=== PATIENT | female | born 1970 | race Caucasian/White ===

== ENCOUNTER 2024-05-23 10:20 | Outpatient (OUT) | payer BC, SELFPAY ==
[2024-05-23 12:03] LABS: Free T4 0.97 ng/dL (0.76-1.46)
[2024-05-23 12:09] LABS: Thyroid Stimulating Hormone 4.869 uIU/mL (0.358-3.740)
== END 2024-05-23 10:21 | disposition home or self-care (01) ==
LOC: LAB 10:24
PROVIDERS: PCP Family Medicine; Visit Provider Family Medicine
DX: E03.9 Hypothyroidism, unspecified (principal)
CPT/HCPCS: 36415; 84439; 84443

== ENCOUNTER 2025-06-11 10:34 | Outpatient (OUT) | payer BC, SELFPAY ==
[2025-06-11 11:49] LABS: Thyroid Stimulating Hormone 12.512 uIU/mL (0.358-3.740)
== END 2025-06-11 10:35 | disposition home or self-care (01) ==
LOC: LAB 10:36
PROVIDERS: PCP Family Medicine; Visit Provider Family Medicine
DX: E03.9 Hypothyroidism, unspecified (principal)
CPT/HCPCS: 36415; 84439; 84443

== ENCOUNTER 2025-09-26 14:02 | Outpatient (OUT) | payer BC, SELFPAY ==
--- OUTSIDE RECORDS SUMMARY | 2020-12-24 13:00 | XMS_ITS | Continuity of Care Document ---
Author Organization [facility] Address [address] [place] [address] Phone Care Team Providers Care Fox Raiser Name Role Phone Cheng Hadley Unavailable Unavailable [...] Diagnoses Date Provider Providers Copied on Encounter [facility], [address], [place], [id number], tel:[phone] COVID ECHD No Information Nadiapoly Cheng. [address], [place], [id number], [place]. tel:[phone] [facility], [address], [place], [id number], [place] tel:[phone] COVID ECHD No Information Visci DO Anand. [address], [place], [id number], [place]. tel:[phone] [facility], [address] [place] [address], [id number], tel:[phone] COVID E[facility]D Encounter for screening for other viral diseases Herbert WILKS Cheng. [address], [place], [id number], [place]. tel:[phone] Family History Family Member Type Diagnosis Age At Onset No Information Immunizations Vaccine Date Status Comments Moderna COVID administered Source: New Im munization Record Moderna COVID administered Source: New Im munization Record Payers Payer name Insurance type Covered democrat ID Authorsonam crump(s) [place] [id number] [place] [id number] [place] [id number] Social History Type Description Quantity Date Captured [...]
--- OUTSIDE RECORDS SUMMARY | 2025-09-26 14:15 | XMS_ITS | CCD ---
Author Organization [facility] Care Team Providers Care Food Service Sales Representatives Name Role Phone DR BETSY GARCIA Consulting Unavailable KATIE, DR KRISTINA Squires Attending Unavailable KATIE, DR KRISTINA Squires Primary Care Unavailable KATIE, DR KRISTINA Squires Admitting Unavailable KATIE, DR KRISTINA Squires Consulting Unavailable Unavailable Primary Care Provider UnavailKristina Alvarenga MD Primary Care Provider Kristina Lopez MD Attending Provider LI WARREN Attending Unavailable LI WARREN Attending Unavailable Unallocated , [place] Provider Primary Care Provi yessy Medications Current Medications MedicationDrug Class(es)DatesSig (Normalized)Sig (Original)Thyroid (Pork) (Cresco Thyroid) 90 mg tablet (5 sources)Start: 93-18-3497khrd 1 tablet by mouth once dailyThyroid (Pork) (Cresco Thyroid) 90 mg tablet Active 90 MG PO Daily April 07, 2025 1:20pmStart: 03-19-2024 End: 93-28-9812ksrl 1 tablet by mouth once dailyThyroid (Pork) (Cresco Thyroid) 90 mg tablet Discontinued 180 MG PO Daily March 19, 2024 12:00am March 19, 2024 11:19amthyroid (half-way) 120 mg oral tablet (20 sources)Start: 09-72-6273wpon 1 tablet by mouth once dailythyroid (Cresco) 120 MG tablet Take 120 mg by mouth Daily 07/04/2025 ActiveStart: 04-07-2025 End: 91-78-2915efpv 1 tablet by mouth once dailyThyroid (Pork) (Cresco Thyroid) 90 mg tablet Discontinued 90 MG PO Daily April 07, 2025 1:20pm July 03, 2025 1:00pmStart: 03-19-2024 End: 62-29-5389tahq 1 tablet by mouth once dailyThyroid (Pork) (Cresco Thyroid) 90 mg tablet Discontinued 0 .ROUTE .COMPLEX 90 February 20, 2025 8:13am April 07, 2025 1:21pm TAKE 1 TABLET BY MOUTH EVERY DAYStart: 03-19-2024 End: 50-58-5903bsqt 1 tablet by mouth once dailyThyroid (Pork) (Cresco Thyroid) 90 mg tablet Discontinued 180 MG PO Daily March 19, 2024 12:00am March 19, 2024 11:19am Completed/Discontinued Medications MedicationDrug Class(es)DatesSig (Normalized)Sig (Original)[id number] 200 actuat albuterol 0.09 mg/actuat metered dose inhaler (3 sources)beta2-Adrenergic AgonistStart: 04-07-2025 End: 46-78-8867Mqpapfmjq Sulfate 90 mcg/actuation HFA aerosol inhaler Discontinued 2 INH INHALATION EVERY 4-6 HOURS as needed for shortness of breath or wheezing 6.7 April 07, 2025 12:00am September 05, 2025 1:37pmStart: 08-09-2024 End: 26-83-7659ufhg 1 puff(s) by inhalation every four to six hours as needed for wheezingAlbuterol Sulfate 90 mcg/actuation HFA aerosol inhaler Discontinued 2 PUFF INHALATION EVERY 4-6 HOURS as needed for shortness of breath or wheezing 6.7 August 09, 2024 12:00am February 14, 2025 1:19pmStart: 98-08-8518zesr 1 puff(s) by inhalation every four to six hoursAlbuterol Sulfate Active 2 PUFF INHALATION EVERY 4-6 HOURS 6.7 August 09, 2024 12:00amAlbuterol Sulfate 90 mcg/actuation HFA aerosol inhaler (2 sources)Start: 08-09-2024 End: 31-25-9351bzyp 1 puff(s) by inhalation every four to six hours as needed for wheezingAlbuterol Sulfate 90 mcg/actuation HFA aerosol inhaler Discontinued 2 PUFF INHALATION EVERY 4-6 HOURS as needed for shortness of breath or wheezing 6.7 August 09, 2024 12:00February 14, 2025 1:19pmazithromycin 250 mg oral tablet (5 sources)Macrolide AntimicrobialStart: 04-07-2025 End: 57-16-1773Uozsipeeabzp 250 mg tablet Discontinued 0 PO .COMPLEX April 07, 2025 12:00am September 05, 2025 1:37pm For 250 mg dose pack: take 500 mg today (day 1), then 250 mg for 4 days (days 2-5) POStart: 08-09-2024 End: 69-88-1502Rrfgmgyaikcl 250 mg tablet Discontinued 0 PO daily 05 02August 09, 2024 12:00am February 14, 2025 1:18pm Take 2 on day 1 and then take 1 for the next 4 days (days 2-5)Start: 42-45-6219Fothhrgxjvel Active 0 PO daily 05 02August 09, 2024 12:00am Take 2 on day 1 and then take 1 forthe next 4 days (days 2-5)benzonatate 100 mg oral capsule (5 sources)Non-narcotic AntitussiveStart: 08-03-2024 End: 05-88-8155itiu 1 capsule by mouth three times dailyBenzonatate 100 mg capsule Discontinued 100 MG PO Three times daily 17 06August 03, 2024 12:00am February 14, 2025 1:18pmmethylPREDNISolone 4 mg oral tablet (5 sources)CorticosteroidStart: 04-07-2025 End: 61-27-9537udfa 1 tablet by mouth onceMethylprednisolone (Medrol (Hill)) 4 mg tablets,dose pack Discontinued 0 PO per package directions April 07, 2025 12:00am September 05, 2025 1:37pm PO PER PKG DIRStart: 08-09-2024 End: 78-95-5080bufg 1 tablet by mouth onceMethylprednisolone (Medrol (Hill)) 4 mg tablets,dose pack Discontinued 0 PO per package directions August 09, 2024 12:00am February 14, 2025 1:18pm PO PER PKG DIR Problems Problem ClassificationProblemDateDocumented DateEpisodic/ChronicChronic obstructive pulmonary disease and bronchiectasis (3 sources)Bronchitis; Translations: [Bronchitis, not specified as acute or chronic]42-92-8463HkcrlgxwJfrmmrnurvmzb symptoms and ill-defined conditions (1 source)Frequency of micturition; Translations: [FREQUENCY OF MICTURITION] Onset: 98-78-7677WmwypkozZrucksmbjz disorders (2 sources)Perimenopausal state; Translations: [Menopausal and female climacteric states]22-11-8298LgaalknWndvjwxxbpmav gastroenteritis (3 sources)Gastroenteritis; Translations: [Noninfective gastroenteritis and colitis, unspecified]29-89-8562OwuxswxmShhnkguskkc chest pain (2 sources)Rib pain; Translations: [Other chest pain]96-78-7174Ecpmaiav Nutritional deficiencies (4 sources)Vitamin D deficiency, unspecified; Translations: [VITAMIN D DEFICIENCY UNSPECIFIED]Onset: 03-13-2397XrdisydLduli connective tissue disease (1 source)Pain in right foot; Translations: [PAIN IN RIGHT FOOT]Onset: 86-78-7714GsenylagXzcft female genital disorders (4 sources)Enlarged uterus; Translations: [Hypertrophy of uterus]08-13-2025 EpisodicOther female genital disorders (2 sources)Female genital organ symptoms; Translations: [Pelvic pressure in female]95-20-3317MpenpavtWhqry lower respiratory disease (1 source)Respiratory tract infection; Translations: [Other specified respiratory disorders]83-45-6590QjreuxrbRjtrk nervous system disorders (2 sources)Peripheral nerve disease ; Translations: [Polyneuropathy, unspecified]82-89-0561OsstkllZdpjd nervous system disorders (1 source)Paresthesia of skin; Translations: [PARESTHESIA OF SKIN]Onset: 88-81-1408JnbpfpvjUwelp screening for suspected conditions (not mental disorders or infectious disease) (9 sources)Patient encounter status; Translations: [Encounter for screening mammogram for malignant neoplasm of breast]49-96-8530TsoxyiplLhwgs upper respiratory infections (1 source)Acute upper respiratory infection, unspecified; Translations: [Acute upper respiratory infections of unspecified site]69-54-1641JrzncpqgWceavnsz of female genital organs (4 sources)Uterine prolapse; Translations: [Uterovaginal prolapse, unspecified] 98-72-9486UxwjanzMhyrcyx disorders (8 sources)Hypothyroidism; Translations: [Hypothyroidism, unspecified]04-24-2024 ChronicUnclassified (2 sources)Patient encounter status; Translations: [Z12.11 - Encounter for screening for malignant neoplasm ofcolon] Results Test NameValueInterpretationReference RangeFacilityLaboratory - Chemistry and Chemistry - challengeOrdered By: Kristina Lopez on 78-31-9411Wvdq T4 [Mass/Vol] 0.92 ng/dL0.76-1.46[facility] Qn12.512 m[IU]/LHigh 0.358-3.740[facility] CenterLaboratory - Microbiology and Antimicrobial susceptibilityon 18-76-3860HBBL-CoV-2 (COVID-19) RNA RADHA+probe Ql (Unsp spec)NegativeUniversity Hospitals Tripoint Medical CenterNo Panel Informationon 35-99-1405USL Influenza A (PCR)NegativeUniversity Hospitals Tripoint Medical CenterPO Influenza B (PCR)NegativeUniversity Hospitals Tripoint Medical CenterLaboratory - Chemistry and Chemistry - challengeon 41-83-7799Trhg T4 [Mass/Vol]0.97 ng/dL0.76-1.46 [facility] Qn4.869 m[IU]/LHigh0.358-3.740[facility] CenterVIT D 1 25 DIHYDROXYon 26-78-3523Nuinhuooiu(1,25 di-[place] Vit D)47.5 pg/vKZpkndu88.8-81.5The [facility] HospitalComment on above:Performed By: #### [id number] #### [facility] [address], [place] [address] Dr. Adriana HaneyXR LSPINE 2_3 VIEWSon 31-89-5325KT LSPINE 2_3 VIEWSEXAMINATION: XR LSPINE 2_3 VIEWS HISTORY: Paresthesia ; chronic low back pain, chronic right foot pain COMPARISON: CT abdomen pelvis 09/30/2021 FINDINGS: BONES: Slight left convex curvature lumbar spine and mild degenerative facet arthropathy L4-5, L5-S1. Normal height and alignment of the vertebral bodies; no fracture or bone lesion. DISC SPACES: Mild narrowing L1-2. Moderate narrowing L5-S1. PARASPINOUS: Negative. No paraspinous abnormality is seen. OTHER: Negative. IMPRESSION: 1. L5-S1 moderate-marked degenerative disc disease which appear stable to slightly progressed compared to prior study. 2. Multilevel mild degenerative changes. Electronically authenticated by: BETSY GARCIA Date: 2022-10-07 08:14NormalThPremier Health [facility] AUTO DIFFon 63-83-4333QMMH #0.0 103/ulNormal0.0-0.1The [place] HospitalComment on above:Performed By: #### CBC #### [facility] [address] [place] [address] Dr. Adriana HaneyBasophils/100 WBC (Bld)0.5 %Normal0.2-2.0The [facility] Comment on above:Performed By: #### CBC #### [facility] [address] [place] [address] Dr. Adriana Olivia #0.1 103/ulNormal0.0-0.7The [place] HospitalComment on above: Performed By: #### CBC #### [facility] [address] [place] [address] Dr. Adriana Pittosinophils/100 WBC (Bld)1.2 %Normal0.9-7.0The [facility] Comment on above:Performed By: #### CBC #### [facility] [address] [place] [address] Dr. Adriana Pittrythrocyte distribution width (RBC) [Ratio]11.9 %Dvcckp15.0-15.0 The [place] HospitalComment on above:Performed By: #### CBC #### [facility] [address] [place] [address] Dr. Adriana HaneyHematocrit (Bld) [Volume fraction]39.3 %Aspelm57.0-48.0The [place] HospitalComment on above:Performed By: #### CBC #### [facility] [address] [place] [address] Dr. Adriana HaneyHemoglobin (Bld) [Mass/Vol]13.5 g/lUQgzhsa59.0-16.0The [place] HospitalComment on above:Performed By: #### CBC #### [facility] [address] [place] [address] Dr. Adriana Alston #0.03 10e3/ulNormal0.00-0.03The [place] HospitalComment on above:Performed By: #### CBC #### [facility] [address] [place] [address] Dr. Adriana Alston %0.4 %Normal0.0-0.5The [place] HospitalComment on above: Performed By: #### CBC #### [facility] [address] [place] [address] Dr. Adriana Arnett #2.6 103/ulNormal1.2-3.8The [place] HospitalComment on above:Performed By: #### CBC #### [facility] [address] [place] [address] Dr. Adriana Springerhocytes/100 WBC (Bld)33.0 %Lnwiuq10.5-60.0The [place] HospitalComment on above:Performed By: #### CBC #### [facility] [address] [place] [address] Dr. Adriana HealyUAL DIFF REQNONormalThe [place] HospitalComment on above: Performed By: #### CBC #### [facility] [address] [place] [address] Dr. Adriana Valdivia (RBC) [Entitic mass]31.1 doYlwnxi88.7-34.0The [place] HospitalComment on above:Performed By: #### CBC #### [facility] [address] [place] [address] Dr. Adriana Moffett (RBC) [Mass/Vol]34.4 g/fZNwfvqd03.9-35.2The [place] HospitalComment on above:Performed By: #### CBC #### [facility] [address] [place] [address] Dr. Adriana Moffett (RBC) [Entitic vol]90.6 eLRzxnfa73.0-99.0The [place] HospitalComment on above:Performed By: #### CBC #### [facility] [address] [place] [address] Dr. Adriana Parker #0.5 103/ulNormal0.3-0.8The [place] HospitalComment on above:Performed By: #### CBC #### [facility] [address] [place] [address] Dr. Adriana Gillocytes/100 WBC (Bld)6.2 %Normal1.7-12.0The [facility] Comment on above:Performed By: #### CBC #### [facility] [address] [place] [address] Dr. Adriana Barahona #4.6 103/ulNormal1.4-6.5The [place] HospitalComment on above:Performed By: #### CBC #### [facility] [address] [place] [address] Dr. Adriana Giordanoutrophils/100 WBC (Bld)58.7 %Fpecoh62.0-75.0The [place] HospitalComment on above:Performed By: #### CBC #### [facility] [address] [place] [address] Dr. Adriana Velasco mean volume (Bld) [Entitic vol]9.4 fLCritically low 9.5-13.5The [place] HospitalComment on above:Performed By: #### CBC #### [facility] [address] [place] [address] Dr. Adriana SamuelsT309 103/meIzjzol827-436Hbn [facility] HospitalComment on above: Performed By: #### CBC #### [facility] [address] [place] [address] Dr. Adriana ScottC4.34 106/ulNormal4.20-5.40The [place] HospitalComment on above:Performed By: #### CBC #### [facility] [address] [place] [address] Dr. Adriana HaneyWBC7.8 103/ulNormal4.0-11.0The [place] HospitalComment on above: Performed By: #### CBC #### [facility] [address] [place] [address] Dr. Adriana Villalpando T4on 28-26-1514Qiwf T4 [Mass/Vol]0.83 ng/dLNormal0.76-1.46 The [place] HospitalComment on above:Performed By: #### FT4 #### [facility] [address] [place] [address] [address] Adriana HaneyPROF CHEM 8 (BAS METB)on 28-56-0050Itwiz gap [Moles/Vol]10.5 mmol/LNormalThe [place] HospitalComment on above:Performed By: #### TSH, BMP #### [facility] [address] [address] [address] Adriana HaneyCalcium [Mass/Vol]8.9 mg/dLNormal8.5-10.1The [facility] Comment on above:Performed By: #### TSH, BMP #### [facility] [address] [address] [address] Adriana HaneyChloride [Moles/Vol]104 mmol/PSgoerv92-024GelRegency Hospital Company Comment on above:Performed By: #### TSH, BMP #### [facility] [address] [address] [address] Adriana HaneyCO2 [Moles/Vol]25.7 mmol/KVewsua59.0-32.0[facility] Comment on above:Performed By: #### TSH, BMP #### [facility] [address] [address] [address] Adriana HaneyCreatinine [Mass/Vol]0.85 mg/dLNormal0.55-1.02[facility] Hospital CompanyComment on above:Performed By: #### TSH, BMP #### [facility] [address] [address] [address] Adriana PittGFR-AF TANZANIAN>60Normal>=60The [place] HospitalComment on above:Performed By: #### TSH, BMP #### [facility] [address] [address] [address] Adriana PittGFR-NON AF TANZANIAN>60Normal>=60The [place] HospitalComment on above:Performed By: #### TSH, BMP #### [facility] [address] [address] [address] Adriana HaneyGlucose [Mass/Vol]103 mg/gTUngkmr35-774GczRegency Hospital Company Comment on above:Performed By: #### TSH, BMP #### [facility] [address] [place] [address] Dr. Adriana HaneyPotassium [Moles/Vol]4.2 mmol/LNormal3.5-5.1[facility] Comment on above:Performed By: #### TSH, BMP #### [facility] [address] [place] [address] Dr. Adriana HaneySodium [Moles/Vol]136 mmol/EYgrxda669-598NocRegency Hospital Company Comment on above:Performed By: #### TSH, BMP #### [facility] [address] [place] [address] Dr. Adriana HaneyUrea nitrogen [Mass/Vol]14.0 mg/dLNormal7.0-18.0[facility] Hospital CompanyComment on above:Performed By: #### TSH, BMP #### [facility] [address] [place] [address] Dr. Adriana Kim nitrogen/Creatinine [Mass ratio]16.5 mg/mgNormalThe [place] HospitalComment on above:Performed By: #### TSH, BMP #### [facility] [address] [place] [address] Dr. Adriana Park 11-21-4635ZQY0.716 uIU/mLNormal0.358-3.740Reg[facility] Hospital CompanyComment on above:Performed By: #### TSH, BMP #### [facility] [address] [place] [address] Dr. Adriana HaneyLab - Toxicology Resultson 83-11-7907Wta - Toxicology Results [id number]#1.00OTSt. [facility] Lab Corpon [id number]-CoV-2 (COVID-19) RNA RADHA+probe Ql (Unsp spec) Not detectedNormalNot DetectedUniversity Hospitals Tripoint Medical CenterComment on above: Order Comment: CALL ONLY IF POS TO [phone] Healthcare Worker?: YResmoncho Comment: This nucleic acid amplification test was developed and its performance characteristics determined by [employer]. Nucleic acid amplification tests include RT- PCR and TMA. This test has not been FDA cleared or approved. This test has been authorized by FDA under an Emergency Use Authorization (EUA). This test is only authorized for the duration of time the declaration that circumstances exist justifying the authorization of the emergency use of in vitro diagnostic tests for detection of SARS-CoV-2 virus and/or diagnosis of COVID-19 infection under section 564(b)(1) of the Act, 21 U.S.C. 360bbb-3(b) (1), unless the authorization is terminated or revoked sooner. When diagnostic testing is negative, the possibility of a false negative result should be considered in the context of a patient's recent exposures and the presence of clinical signs and symptoms consistent with COVID-19. An individual without symptoms of COVID-19 and who is not shedding SARS-CoV-2 virus would expect to have a negative (not detected) result in this assay. PERFORMED BY: [address] [place] [address] PATHOLOGIST [employer]EN [employer]UM[employer] NOEL VILLAREAL M.D.Performed By: #### CORONAVIRUS #### [facility] ,COVID-19 Lab Corpon 85-89-6515UZMO-CoV-2 (COVID-19) RNA RADHA+probe Ql (Unsp spec)Not detectedNormalNot DetectedUniversity Hospitals Tripoint Medical CenterComment on above:Order Comment: CALL ONLY IF POS TO [phone] Healthcare Worker?: YResmoncho Comment: This nucleic acid amplification test was developed and its performance characteristics determined by [employer]. Nucleic acid amplification tests include RT- PCR and TMA. This test has not been FDA cleared or approved. This test has been authorized by FDA under an Emergency Use Authorization (EUA). This test is only authorized for the duration of time the declaration that circumstances exist justifying the authorization of the emergency use of in vitro diagnostic tests for detection of SARS-CoV-2 virus and/or diagnosis of COVID-19 infection under section 564(b)(1) of the Act, 21 U.S.C. 360bbb-3(b) (1), unless the authorization is terminated or revoked sooner. When diagnostic testing is negative, the possibility of a false negative result should be considered in the context of a patient's recent exposures and the presence of clinical signs and symptoms consistent with COVID-19. An individual without symptoms of COVID-19 and who is not shedding SARS-CoV-2 virus would expect to have a negative (not detected) result in this assay. PERFORMED BY: [address] [place] [address] PATHOLOGIST [employer] NOEL VILLAREAL M.D.Performed By: #### CORONAVIRUS #### [facility] ,COVID-19 Lab Corpon [id number]-CoV-2 (COVID-19) RNA RADHA+probe Ql (Unsp spec)Not detectedNormalNot DetectedUniversity Hospitals Tripoint Medical CenterComment on above:Order Comment: CALL ONLY IF POS TO [phone] Healthcare Worker?: YResult Comment: This nucleic acid amplification test was developed and its performance characteristics determined by [employer]. Nucleic acid amplification tests include RT- PCR and TMA. This test has not been FDA cleared or approved. This test has been authorized by FDA under an Emergency Use Authorization (EUA). This test is only authorized for the duration of time the declaration that circumstances exist justifying the authorization of the emergency use of in vitro diagnostic tests for detection of SARS-CoV-2 virus and/or diagnosis of COVID-19 infection under section 564(b)(1) of the Act, 21 U.S.C. 360bbb-3(b) (1), unless the authorization is terminated or revoked sooner. When diagnostic testing is negative, the possibility of a false negative result should be considered in the context of a patient's recent exposures and the presence of clinical signs and symptoms consistent with COVID-19. An individual without symptoms of COVID-19 and who is not shedding SARS-CoV-2 virus would expect to have a negative (not detected) result in this assay. PERFORMED BY: [place] [address] [place] [address] PATHOLOGIST GRE[employer]UMBER NOEL VILLAREAL M.D.Performed By: #### CORONAVIRUS #### [facility] ,COVID-19 Lab Corpon [id number]-CoV-2 (COVID-19) RNA RADHA+probe Ql (Unsp spec)Not detectedNormalNot DetectedUniversity Hospitals Tripoint Medical CenterComment on above:Order Comment: CALL ONLY IF POS TO [phone] Healthcare Worker?: YResult Comment: This nucleic acid amplification test was developed and its performance characteristics determined by [employer]. Nucleic acid amplification tests include RT- PCR and TMA. This test has not been FDA cleared or approved. This test has been authorized by FDA under an Emergency Use Authorization (EUA). This test is only authorized for the duration of time the declaration that circumstances exist justifying the authorization of the emergency use of in vitro diagnostic tests for detection of SARS-CoV-2 virus and/or diagnosis of COVID-19 infection under section 564(b)(1) of the Act, 21 U.S.C. 360bbb-3(b) (1), unless the authorization is terminated or revoked sooner. When diagnostic testing is negative, the possibility of a false negative result should be considered in the context of a patient's recent exposures and the presence of clinical signs and symptoms consistent with COVID-19. An individual without symptoms of COVID-19 and who is not shedding SARS-CoV-2 virus would expect to have a negative (not detected) result in this assay. PERFORMED BY: [facility] [address] [place] [address] PATHOLOGIST GRE[employer]UMBER NOEL VILLAREAL M.D.Performed By: #### CORONAVIRUS #### [facility] ,COVID-19 Lab Corpon [id number]-CoV-2 (COVID-19) RNA RADHA+probe Ql (Unsp spec)Not detectedNormalNot DetectedUniversity Hospitals Tripoint Medical CenterComment on above:Order Comment: CALL ONLY IF POS TO [phone] Healthcare Worker?: YResult Comment: This nucleic acid amplification test was developed and its performance characteristics determined by [employer]. Nucleic acid amplification tests include RT- PCR and TMA. This test has not been FDA cleared or approved. This test has been authorized by FDA under an Emergency Use Authorization (EUA). This test is only authorized for the duration of time the declaration that circumstances exist justifying the authorization of the emergency use of in vitro diagnostic tests for detection of SARS-CoV-2 virus and/or diagnosis of COVID-19 infection under section 564(b)(1) of the Act, 21 U.S.C. 360bbb-3(b) (1), unless the authorization is terminated or revoked sooner. When diagnostic testing is negative, the possibility of a false negative result should be considered in the context of a patient's recent exposures and the presence of clinical signs and symptoms consistent with COVID-19. An individual without symptoms of COVID-19 and who is not shedding SARS-CoV-2 virus would expect to have a negative (not detected) result in this assay. PERFORMED BY: [address] [place] [address] PATHOLOGIST GREEN PLUMBER NOEL VILLAREAL M.D.Performed By: #### CORONAVIRUS #### [facility] ,COVID[facility] [id number]-CoV-2 (COVID-19) RNA RADHA+probe Ql (Unsp spec)Not detectedNormalNot DetectedUniversity Hospitals Tripoint Medical CenterComment on above:Order Comment: CALL ONLY IF POS TO [phone] Healthcare Worker?: Yusuf Comment: This nucleic acid amplification test was developed and its performance characteristics determined by [employer]. Nucleic acid amplification tests include RT- PCR and TMA. This test has not been FDA cleared or approved. This test has been authorized by FDA under an Emergency Use Authorization (EUA). This test is only authorized for the duration of time the declaration that circumstances exist justifying the authorization of the emergency use of in vitro diagnostic tests for detection of SARS-CoV-2 virus and/or diagnosis of COVID-19 infection under section 564(b)(1) of the Act, 21 U.S.C. 360bbb-3(b) (1), unless the authorization is terminated or revoked sooner. When diagnostic testing is negative, the possibility of a false negative result should be considered in the context of a patient's recent exposures and the presence of clinical signs and symptoms consistent with COVID-19. An individual without symptoms of COVID-19 and who is not shedding SARS-CoV-2 virus would expect to have a negative (not detected) result in this assay. PERFORMED BY: [facility] [address] [place] [address] PATHOLOGIST GREEN PLUMBER NOEL VILLAREAL M.D.Performed By: #### CORONAVIRUS #### [facility] ,COVID-19 Lab [facility]on [id number] (COVID-19) RNA RADHA+probe Ql (Unsp spec)Not detectedNormalNot DetectedUniversity Hospitals Tripoint Medical CenterComment on above:Order Comment: CALL ONLY IF POS TO [phone] Healthcare Worker?: ISISesult Comment: This nucleic acid amplification test was developed and its performance characteristics determined by [employer]. Nucleic acid amplification tests include RT- PCR and TMA. This test has not been FDA cleared or approved. This test has been authorized by FDA under an Emergency Use Authorization (EUA). This test is only authorized for the duration of time the declaration that circumstances exist justifying the authorization of the emergency use of in vitro diagnostic tests for detection of SARS-CoV-2 virus and/or diagnosis of COVID-19 infection under section 564(b)(1) of the Act, 21 U.S.C. 360bbb-3(b) (1), unless the authorization is terminated or revoked sooner. When diagnostic testing is negative, the possibility of a false negative result should be considered in the context of a patient's recent exposures and the presence of clinical signs and symptoms consistent with COVID-19. An individual without symptoms of COVID-19 and who is not shedding SARS-CoV-2 virus would expect to have a negative (not detected) result in this assay. PERFORMED BY: [facility] [address] [place] [address] PATHOLOGIST GREEN PLUMBER NOEL VILLAREAL M.D.Performed By: #### CORONAVIRUS #### [facility] ,COVID-19 Lab Corpon [id number] (COVID-19) RNA RADHA+probe Ql (Unsp spec)Not detectedNormalNot DetectedUniversity Hospitals Tripoint Medical CenterComment on above:Order Comment: CALL ONLY IF POS TO [phone] Healthcare Worker?: YResult Comment: This nucleic acid amplification test was developed and its performance characteristics determined by [employer]. Nucleic acid amplification tests include RT- PCR and TMA. This test has not been FDA cleared or approved. This test has been authorized by FDA under an Emergency Use Authorization (EUA). This test is only authorized for the duration of time the declaration that circumstances exist justifying the authorization of the emergency use of in vitro diagnostic tests for detection of SARS-CoV-2 virus and/or diagnosis of COVID-19 infection under section 564(b)(1) of the Act, 21 U.S.C. 360bbb-3(b) (1), unless the authorization is terminated or revoked sooner. When diagnostic testing is negative, the possibility of a false negative result should be considered in the context of a patient's recent exposures and the presence of clinical signs and symptoms consistent with COVID-19. An individual without symptoms of COVID-19 and who is not shedding SARS-CoV-2 virus would expect to have a negative (not detected) result in this assay. PERFORMED BY: [facility] [address] [place] [address] PATHOLOGIST GREEN PLUMBER NOEL VILLAREAL M.D.Performed By: #### CORONAVIRUS #### [facility] ,COVID-19 Lab [facility]on [id number]-CoV-2 (COVID-19) RNA RADHA+probe Ql (Unsp spec)Not detectedNormalNot DetectedUniversity Hospitals Tripoint Medical CenterComment on above:Order Comment: CALL ONLY IF POS TO [phone] Healthcare Worker?: YResult Comment: This nucleic acid amplification test was developed and its performance characteristics determined by [employer]. Nucleic acid amplification tests include RT- PCR and TMA. This test has not been FDA cleared or approved. This test has been authorized by FDA under an Emergency Use Authorization (EUA). This test is only authorized for the duration of time the declaration that circumstances exist justifying the authorization of the emergency use of in vitro diagnostic tests for detection of SARS-CoV-2 virus and/or diagnosis of COVID-19 infection under section 564(b)(1) of the Act, 21 U.S.C. 360bbb-3(b) (1), unless the authorization is terminated or revoked sooner. When diagnostic testing is negative, the possibility of a false negative result should be considered in the context of a patient's recent exposures and the presence of clinical signs and symptoms consistent with COVID-19. An individual without symptoms of COVID-19 and who is not shedding SARS-CoV-2 virus would expect to have a negative (not detected) result in this assay. PERFORMED BY: [address] [place] [address] PATHOLOGIST GREEN PLUMBER NOEL VILLAREAL M.D.Performed By: #### CORONAVIRUS #### [facility] ,COVID-19 Lab [facility] [id number]-CoV-2 (COVID-19) RNA RADHA+probe Ql (Unsp spec)Not detectedNormalNot DetectedUniversity Hospitals Tripoint Medical CenterComment on above:Order Comment: CALL ONLY IF POS TO [phone] Healthcare Worker?: YResult Comment: This nucleic acid amplification test was developed and its performance characteristics determined by [employer]. Nucleic acid amplification tests include RT- PCR and TMA. This test has not been FDA cleared or approved. This test has been authorized by FDA under an Emergency Use Authorization (EUA). This test is only authorized for the duration of time the declaration that circumstances exist justifying the authorization of the emergency use of in vitro diagnostic tests for detection of SARS-CoV-2 virus and/or diagnosis of COVID-19 infection under section 564(b)(1) of the Act, 21 U.S.C. 360bbb-3(b) (1), unless the authorization is terminated or revoked sooner. When diagnostic testing is negative, the possibility of a false negative result should be considered in the context of a patient's recent exposures and the presence of clinical signs and symptoms consistent with COVID-19. An individual without symptoms of COVID-19 and who is not shedding SARS-CoV-2 virus would expect to have a negative (not detected) result in this assay. PERFORMED BY: [facility] [address] [place] [address] PATHOLOGIST GREEN PLUMBER NOEL VILLAREAL M.D.Performed By: #### CORONAVIRUS #### [facility] ,COVID-19 Lab [facility] [id number] (COVID-19) RNA RADHA+probe Ql (Unsp spec)Not detectedNormalNot DetectedUniversity Hospitals Tripoint Medical CenterComment on above:Order Comment: CALL ONLY IF POS TO [phone] Healthcare Worker?: ISISesmoncho Comment: This nucleic acid amplification test was developed and its performance characteristics determined by [employer]. Nucleic acid amplification tests include RT- PCR and TMA. This test has not been FDA cleared or approved. This test has been authorized by FDA under an Emergency Use Authorization (EUA). This test is only authorized for the duration of time the declaration that circumstances exist justifying the authorization of the emergency use of in vitro diagnostic tests for detection of SARS-CoV-2 virus and/or diagnosis of COVID-19 infection under section 564(b)(1) of the Act, 21 U.S.C. 360bbb-3(b) (1), unless the authorization is terminated or revoked sooner. When diagnostic testing is negative, the possibility of a false negative result should be considered in the context of a patient's recent exposures and the presence of clinical signs and symptoms consistent with COVID-19. An individual without symptoms of COVID-19 and who is not shedding SARS-CoV-2 virus would expect to have a negative (not detected) result in this assay. PERFORMED BY: [facility] [address] [place] [address] PATHOLOGIST GREEN PLUMBER NOEL VILLAREAL M.D.Performed By: #### CORONAVIRUS #### [facility] ,COVID-19 Lab [facility] [id number]-CoV-[id number] (COVID-19) RNA RADHA+probe Ql (Unsp spec)Not detectedNormalNot DetectedUniversity Hospitals Tripoint Medical CenterComment on above:Order Comment: CALL ONLY IF POS TO [phone] Healthcare Worker?: Yusuf Comment: This nucleic acid amplification test was developed and its performance characteristics determined by [employer]. Nucleic acid amplification tests include RT- PCR and TMA. This test has not been FDA cleared or approved. This test has been authorized by FDA under an Emergency Use Authorization (EUA). This test is only authorized for the duration of time the declaration that circumstances exist justifying the authorization of the emergency use of in vitro diagnostic tests for detection of SARS-CoV-2 virus and/or diagnosis of COVID-19 infection under section 564(b)(1) of the Act, 21 U.S.C. 360bbb-3(b) (1), unless the authorization is terminated or revoked sooner. When diagnostic testing is negative, the possibility of a false negative result should be considered in the context of a patient's recent exposures and the presence of clinical signs and symptoms consistent with COVID-19. An individual without symptoms of COVID-19 and who is not shedding SARS-CoV-2 virus would expect to have a negative (not detected) result in this assay. PERFORMED BY: [address] [address] PATHOLOGIST GREEN PLUMBER NOEL VILLAREAL M.D.Performed By: #### CORONAVIRUS #### [facility] ,COVID-19 Lab [facility]on [id number]-CoV-2 (COVID-19) RNA RADHA+probe Ql (Unsp spec)Not detectedNormalNot DetectedUniversity Hospitals Tripoint Medical CenterComment on above:Order Comment: CALL ONLY IF POS TO [phone] Healthcare Worker?: YResmoncho Comment: This nucleic acid amplification test was developed and its performance characteristics determined by [employer]. Nucleic acid amplification tests include RT- PCR and TMA. This test has not been FDA cleared or approved. This test has been authorized by FDA under an Emergency Use Authorization (EUA). This test is only authorized for the duration of time the declaration that circumstances exist justifying the authorization of the emergency use of in vitro diagnostic tests for detection of SARS-CoV-2 virus and/or diagnosis of COVID-19 infection under section 564(b)(1) of the Act, 21 U.S.C. 360bbb-3(b) (1), unless the authorization is terminated or revoked sooner. When diagnostic testing is negative, the possibility of a false negative result should be considered in the context of a patient's recent exposures and the presence of clinical signs and symptoms consistent with COVID-19. An individual without symptoms of COVID-19 and who is not shedding SARS-CoV-2 virus would expect to have a negative (not detected) result in this assay. PERFORMED BY: [facility] [address] [place] [address] PATHOLOGIST GREEN PLUMBER NOEL VILLAREAL M.D.Performed By: #### CORONAVIRUS #### [facility] ,COVID-19 Lab [facility]on [id number]-CoV-2 (COVID-19) RNA RADHA+probe Ql (Unsp spec)Not detectedNormalNot DetectedUniversity Hospitals Tripoint Medical CenterComment on above:Order Comment: CALL ONLY IF POS TO [phone] Healthcare Worker?: YResult Comment: This nucleic acid amplification test was developed and its performance characteristics determined by [employer]. Nucleic acid amplification tests include RT- PCR and TMA. This test has not been FDA cleared or approved. This test has been authorized by FDA under an Emergency Use Authorization (EUA). This test is only authorized for the duration of time the declaration that circumstances exist justifying the authorization of the emergency use of in vitro diagnostic tests for detection of SARS-CoV-2 virus and/or diagnosis of COVID-19 infection under section 564(b)(1) of the Act, 21 U.S.C. 360bbb-3(b) (1), unless the authorization is terminated or revoked sooner. When diagnostic testing is negative, the possibility of a false negative result should be considered in the context of a patient's recent exposures and the presence of clinical signs and symptoms consistent with COVID-19. An individual without symptoms of COVID-19 and who is not shedding SARS-CoV-2 virus would expect to have a negative (not detected) result in this assay. PERFORMED BY: [facility] [address] [place] [address] PATHOLOGIST GREEN PLUMBER NOEL VILLAREAL M.D.Performed By: #### CORONAVIRUS #### [facility] ,COVID-19 Lab Corpon [id number]-CoV-2 (COVID-19) RNA RADHA+probe Ql (Unsp spec)Not detectedNormalNot DetectedUniversity Hospitals Tripoint Medical CenterComment on above:Order Comment: CALL ONLY IF POS TO [phone] Healthcare Worker?: YResult Comment: This nucleic acid amplification test was developed and its performance characteristics determined by [employer]. Nucleic acid amplification tests include RT- PCR and TMA. This test has not been FDA cleared or approved. This test has been authorized by FDA under an Emergency Use Authorization (EUA). This test is only authorized for the duration of time the declaration that circumstances exist justifying the authorization of the emergency use of in vitro diagnostic tests for detection of SARS-CoV-2 virus and/or diagnosis of COVID-19 infection under section 564(b)(1) of the Act, 21 U.S.C. 360bbb-3(b) (1), unless the authorization is terminated or revoked sooner. When diagnostic testing is negative, the possibility of a false negative result should be considered in the context of a patient's recent exposures and the presence of clinical signs and symptoms consistent with COVID-19. An individual without symptoms of COVID-19 and who is not shedding SARS-CoV-2 virus would expect to have a negative (not detected) result in this assay. PERFORMED BY: [facility] [address] [place] [address] PATHOLOGIST GREEN PLUMBER NOEL VILLAREAL M.D.Performed By: #### CORONAVIRUS #### [facility] ,COVID-19 Lab Corpon [id number] (COVID-19) RNA RADHA+probe Ql (Unsp spec)Not detectedNormalNot DetectedUniversity Hospitals Tripoint Medical CenterComment on above:Order Comment: CALL ONLY IF POS TO [phone] Healthcare Worker?: YResult Comment: This nucleic acid amplification test was developed and its performance characteristics determined by [employer]. Nucleic acid amplification tests include RT- PCR and TMA. This test has not been FDA cleared or approved. This test has been authorized by FDA under an Emergency Use Authorization (EUA). This test is only authorized for the duration of time the declaration that circumstances exist justifying the authorization of the emergency use of in vitro diagnostic tests for detection of SARS-CoV-2 virus and/or diagnosis of COVID-19 infection under section 564(b)(1) of the Act, 21 U.S.C. 360bbb-3(b) (1), unless the authorization is terminated or revoked sooner. When diagnostic testing is negative, the possibility of a false negative result should be considered in the context of a patient's recent exposures and the presence of clinical signs and symptoms consistent with COVID-19. An individual without symptoms of COVID-19 and who is not shedding SARS-CoV-2 virus would expect to have a negative (not detected) result in this assay. PERFORMED BY: [address] [place] [address] PATHOLOGIST GREEN PLUMBER NOEL VILLAREAL M.D.Performed By: #### CORONAVIRUS #### [facility] ,COVID-19 Lab Corpon [id number] (COVID-19) RNA RADHA+probe Ql (Unsp spec)Not detectedNormalNot DetectedUniversity Hospitals Tripoint Medical CenterComment on above:Order Comment: CALL ONLY IF POS TO [phone] Healthcare Worker?: YResult Comment: This nucleic acid amplification test was developed and its performance characteristics determined by [employer]. Nucleic acid amplification tests include RT- PCR and TMA. This test has not been FDA cleared or approved. This test has been authorized by FDA under an Emergency Use Authorization (EUA). This test is only authorized for the duration of time the declaration that circumstances exist justifying the authorization of the emergency use of in vitro diagnostic tests for detection of SARS-CoV-2 virus and/or diagnosis of COVID-19 infection under section 564(b)(1) of the Act, 21 U.S.C. 360bbb-3(b) (1), unless the authorization is terminated or revoked sooner. When diagnostic testing is negative, the possibility of a false negative result should be considered in the context of a patient's recent exposures and the presence of clinical signs and symptoms consistent with COVID-19. An individual without symptoms of COVID-19 and who is not shedding SARS-CoV-2 virus would expect to have a negative (not detected) result in this assay. PERFORMED BY: [facility] [address] [place] [address] PATHOLOGIST GREEN PLUMBER NOEL VILLAREAL M.D.Performed By: #### CORONAVIRUS #### [facility] ,COVID-19 Lab Corpon [id number] (COVID-19) RNA RADHA+probe Ql (Unsp spec)Not detectedNormalNot DetectedUniversity Hospitals Tripoint Medical CenterComment on above:Order Comment: CALL ONLY IF POS TO [phone] Healthcare Worker?: Yusuf Comment: This nucleic acid amplification test was developed and its performance characteristics determined by [employer]. Nucleic acid amplification tests include RT- PCR and TMA. This test has not been FDA cleared or approved. This test has been authorized by FDA under an Emergency Use Authorization (EUA). This test is only authorized for the duration of time the declaration that circumstances exist justifying the authorization of the emergency use of in vitro diagnostic tests for detection of SARS-CoV-2 virus and/or diagnosis of COVID-19 infection under section 564(b)(1) of the Act, 21 U.S.C. 360bbb-3(b) (1), unless the authorization is terminated or revoked sooner. When diagnostic testing is negative, the possibility of a false negative result should be considered in the context of a patient's recent exposures and the presence of clinical signs and symptoms consistent with COVID-19. An individual without symptoms of COVID-19 and who is not shedding SARS-CoV-2 virus would expect to have a negative (not detected) result in this assay. PERFORMED BY: [facility] [address] [place] [address] PATHOLOGIST GREEN PLUMBER NOEL VILLAREAL M.D.Performed By: #### CORONAVIRUS #### [facility] ,COVID-19 Lab Corpon [id number]-CoV-2 (COVID-19) Ab [place] QlNot detectedNormal Not DetectedUniversity Hospitals Tripoint Medical CenterComment on above:Order Comment: CALL ONLY IF POS TO [phone] Healthcare Worker?: YResult Comment: This nucleic acid amplification test was developed and its performance characteristics determined by [employer]. Nucleic acid amplification tests include RT- PCR and TMA. This test has not been FDA cleared or approved. This test has been authorized by FDA under an Emergency Use Authorization (EUA). This test is only authorized for the duration of time the declaration that circumstances exist justifying the authorization of the emergency use of in vitro diagnostic tests for detection of SARS-CoV-2 virus and/or diagnosis of COVID-19 infection under section 564(b)(1) of the Act, 21 U.S.C. 360bbb-3(b) (1), unless the authorization is terminated or revoked sooner. When diagnostic testing is negative, the possibility of a false negative result should be considered in the context of a patient's recent exposures and the presence of clinical signs and symptoms consistent with COVID-19. An individual without symptoms of COVID-19 and who is not shedding SARS-CoV-2 virus would expect to have a negative (not detected) result in this assay. PERFORMED BY: [address] [place] [address] PATHOLOGIST GREEN PLUMBER NOEL VILLAREAL M.D.Performed By: #### CORONAVIRUS #### [facility] ,COVID-19 Lab Corpon [id number] (COVID-19) Ab [place] QlNot detectedNormal Not DetectedUniversity Hospitals Tripoint Medical CenterComment on above:Order Comment: CALL ONLY IF POS TO [phone] Healthcare Worker?: YResult Comment: This nucleic acid amplification test was developed and its performance characteristics determined by [employer]. Nucleic acid amplification tests include RT- PCR and TMA. This test has not been FDA cleared or approved. This test has been authorized by FDA under an Emergency Use Authorization (EUA). This test is only authorized for the duration of time the declaration that circumstances exist justifying the authorization of the emergency use of in vitro diagnostic tests for detection of SARS-CoV-2 virus and/or diagnosis of COVID-19 infection under section 564(b)(1) of the Act, 21 U.S.C. 360bbb-3(b) (1), unless the authorization is terminated or revoked sooner. When diagnostic testing is negative, the possibility of a false negative result should be considered in the context of a patient's recent exposures and the presence of clinical signs and symptoms consistent with COVID-19. An individual without symptoms of COVID-19 and who is not shedding SARS-CoV-2 virus would expect to have a negative (not detected) result in this assay. PERFORMED BY: [address] [place] [address] PATHOLOGIST GREEN PLUMBER NOEL VILLAREAL M.D.Performed By: #### CORONAVIRUS #### [facility] ,COVID-19 Lab Corpon [id number]-CoV-2 (COVID-19) Ab [place] QlNot detectedNormal Not DetectedUniversity Hospitals Tripoint Medical CenterComment on above:Order Comment: CALL ONLY IF POS TO [phone] Healthcare Worker?: ISISesult Comment: This nucleic acid amplification test was developed and its performance characteristics determined by [employer]. Nucleic acid amplification tests include RT- PCR and TMA. This test has not been FDA cleared or approved. This test has been authorized by FDA under an Emergency Use Authorization (EUA). This test is only authorized for the duration of time the declaration that circumstances exist justifying the authorization of the emergency use of in vitro diagnostic tests for detection of SARS-CoV-2 virus and/or diagnosis of COVID-19 infection under section 564(b)(1) of the Act, 21 U.S.C. 360bbb-3(b) (1), unless the authorization is terminated or revoked sooner. When diagnostic testing is negative, the possibility of a false negative result should be considered in the context of a patient's recent exposures and the presence of clinical signs and symptoms consistent with COVID-19. An individual without symptoms of COVID-19 and who is not shedding SARS-CoV-2 virus would expect to have a negative (not detected) result in this assay. PERFORMED BY: [facility] [address] [place] [address] PATHOLOGIST GREEN PLUMBER NOEL VILLAREAL M.D.Performed By: #### CORONAVIRUS #### [facility] ,COVID-19 Lab Corpon [id number]-CoV-2 (COVID-19) Ab [place] QlNot detectedNormal Not DetectedUniversity Hospitals Tripoint Medical CenterComment on above:Order Comment: CALL ONLY IF POS TO [phone] Healthcare Worker?: YResult Comment: This nucleic acid amplification test was developed and its performance characteristics determined by [employer]. Nucleic acid amplification tests include RT- PCR and TMA. This test has not been FDA cleared or approved. This test has been authorized by FDA under an Emergency Use Authorization (EUA). This test is only authorized for the duration of time the declaration that circumstances exist justifying the authorization of the emergency use of in vitro diagnostic tests for detection of SARS-CoV-2 virus and/or diagnosis of COVID-19 infection under section 564(b)(1) of the Act, 21 U.S.C. 360bbb-3(b) (1), unless the authorization is terminated or revoked sooner. When diagnostic testing is negative, the possibility of a false negative result should be considered in the context of a patient's recent exposures and the presence of clinical signs and symptoms consistent with COVID-19. An individual without symptoms of COVID-19 and who is not shedding SARS-CoV-2 virus would expect to have a negative (not detected) result in this assay. PERFORMED BY: [facility] [address] [place] [address] PATHOLOGIST GREEN PLUMBER NOEL VILLAREAL M.D.Performed By: #### CORONAVIRUS #### [facility] ,COVID-19 Lab Corpon [id number]-CoV-2 (COVID-19) Ab [place] QlNot detectedNormal Not DetectedUniversity Hospitals Tripoint Medical CenterComment on above:Order Comment: CALL ONLY IF POS TO [phone] Healthcare Worker?: YResult Comment: This nucleic acid amplification test was developed and its performance characteristics determined by [employer]. Nucleic acid amplification tests include RT- PCR and TMA. This test has not been FDA cleared or approved. This test has been authorized by FDA under an Emergency Use Authorization (EUA). This test is only authorized for the duration of time the declaration that circumstances exist justifying the authorization of the emergency use of in vitro diagnostic tests for detection of SARS-CoV-2 virus and/or diagnosis of COVID-19 infection under section 564(b)(1) of the Act, 21 U.S.C. 360bbb-3(b) (1), unless the authorization is terminated or revoked sooner. When diagnostic testing is negative, the possibility of a false negative result should be considered in the context of a patient's recent exposures and the presence of clinical signs and symptoms consistent with COVID-19. An individual without symptoms of COVID-19 and who is not shedding SARS-CoV-2 virus would expect to have a negative (not detected) result in this assay. PERFORMED BY: [address] [place] [address] PATHOLOGIST GREEN PLUMBER NOEL VILLAREAL M.D.Performed By: #### CORONAVIRUS #### [facility] ,COVID-19 Lab Corpon [id number]-CoV-2 (COVID-19) Ab [place] QlNot detectedNormal Not DetectedUniversity Hospitals Tripoint Medical CenterComment on above:Order Comment: CALL ONLY IF POS TO [phone] Healthcare Worker?: YResmoncho Comment: This nucleic acid amplification test was developed and its performance characteristics determined by [employer]. Nucleic acid amplification tests include RT- PCR and TMA. This test has not been FDA cleared or approved. This test has been authorized by FDA under an Emergency Use Authorization (EUA). This test is only authorized for the duration of time the declaration that circumstances exist justifying the authorization of the emergency use of in vitro diagnostic tests for detection of SARS-CoV-2 virus and/or diagnosis of COVID-19 infection under section 564(b)(1) of the Act, 21 U.S.C. 360bbb-3(b) (1), unless the authorization is terminated or revoked sooner. When diagnostic testing is negative, the possibility of a false negative result should be considered in the context of a patient's recent exposures and the presence of clinical signs and symptoms consistent with COVID-19. An individual without symptoms of COVID-19 and who is not shedding SARS-CoV-2 virus would expect to have a negative (not detected) result in this assay. PERFORMED BY: [facility] [address] [place] [address] PATHOLOGIST GREEN PLUMBER NOEL VILLAREAL M.D.Performed By: #### CORONAVIRUS #### [facility] ,COVID-19 Lab Corpon [id number]-CoV-2 (COVID-19) Ab [place] QlNot detectedNormal Not DetectedUniversity Hospitals Tripoint Medical CenterComment on above:Order Comment: CALL ONLY IF POS TO [phone] Healthcare Worker?: YResult Comment: This nucleic acid amplification test was developed and its performance characteristics determined by [employer]. Nucleic acid amplification tests include RT- PCR and TMA. This test has not been FDA cleared or approved. This test has been authorized by FDA under an Emergency Use Authorization (EUA). This test is only authorized for the duration of time the declaration that circumstances exist justifying the authorization of the emergency use of in vitro diagnostic tests for detection of SARS-CoV-2 virus and/or diagnosis of COVID-19 infection under section 564(b)(1) of the Act, 21 U.S.C. 360bbb-3(b) (1), unless the authorization is terminated or revoked sooner. When diagnostic testing is negative, the possibility of a false negative result should be considered in the context of a patient's recent exposures and the presence of clinical signs and symptoms consistent with COVID-19. An individual without symptoms of COVID-19 and who is not shedding SARS-CoV-2 virus would expect to have a negative (not detected) result in this assay. PERFORMED BY: [facility] [address] [place] [address] PATHOLOGIST GREEN PLUMBER NOEL VILLAREAL M.D.Performed By: #### CORONAVIRUS #### [facility] ,COVID-19 Lab Corpon [id number]-CoV-2 (COVID-19) Ab [place] QlNot detectedNormal Not DetectedUniversity Hospitals Tripoint Medical CenterComment on above:Order Comment: CALL ONLY IF POS TO [phone] Healthcare Worker?: YResult Comment: This nucleic acid amplification test was developed and its performance characteristics determined by [employer]. Nucleic acid amplification tests include RT- PCR and TMA. This test has not been FDA cleared or approved. This test has been authorized by FDA under an Emergency Use Authorization (EUA). This test is only authorized for the duration of time the declaration that circumstances exist justifying the authorization of the emergency use of in vitro diagnostic tests for detection of SARS-CoV-2 virus and/or diagnosis of COVID-19 infection under section 564(b)(1) of the Act, 21 U.S.C. 360bbb-3(b) (1), unless the authorization is terminated or revoked sooner. When diagnostic testing is negative, the possibility of a false negative result should be considered in the context of a patient's recent exposures and the presence of clinical signs and symptoms consistent with COVID-19. An individual without symptoms of COVID-19 and who is not shedding SARS-CoV-2 virus would expect to have a negative (not detected) result in this assay. PERFORMED BY: [address] [place] [address] PATHOLOGIST GREEN PLUMBER NOEL VILLAREAL M.D.Performed By: #### CORONAVIRUS #### [facility] ,COVID-19 Lab Corpon [id number]-CoV-2 (COVID-19) Ab [place] QlNot detectedNormal Not DetectedUniversity Hospitals Tripoint Medical CenterComment on above:Order Comment: CALL ONLY IF POS TO [phone] Healthcare Worker?: YResult Comment: This nucleic acid amplification test was developed and its performance characteristics determined by [employer]. Nucleic acid amplification tests include RT- PCR and TMA. This test has not been FDA cleared or approved. This test has been authorized by FDA under an Emergency Use Authorization (EUA). This test is only authorized for the duration of time the declaration that circumstances exist justifying the authorization of the emergency use of in vitro diagnostic tests for detection of SARS-CoV-2 virus and/or diagnosis of COVID-19 infection under section 564(b)(1) of the Act, 21 U.S.C. 360bbb-3(b) (1), unless the authorization is terminated or revoked sooner. When diagnostic testing is negative, the possibility of a false negative result should be considered in the context of a patient's recent exposures and the presence of clinical signs and symptoms consistent with COVID-19. An individual without symptoms of COVID-19 and who is not shedding SARS-CoV-2 virus would expect to have a negative (not detected) result in this assay. PERFORMED BY: [facility] [address] [place] [address] PATHOLOGIST GREEN PLUMBER NOEL VILLAREAL M.D.Performed By: #### CORONAVIRUS #### [facility] ,COVID-19 Lab Corpon [id number]-CoV-2 (COVID-19) Ab [place] QlNot detectedNormal Not DetectedUniversity Hospitals Tripoint Medical CenterComment on above:Order Comment: CALL ONLY IF POS TO [phone] Healthcare Worker?: YResult Comment: This nucleic acid amplification test was developed and its performance characteristics determined by [employer]. Nucleic acid amplification tests include RT- PCR and TMA. This test has not been FDA cleared or approved. This test has been authorized by FDA under an Emergency Use Authorization (EUA). This test is only authorized for the duration of time the declaration that circumstances exist justifying the authorization of the emergency use of in vitro diagnostic tests for detection of SARS-CoV-2 virus and/or diagnosis of COVID-19 infection under section 564(b)(1) of the Act, 21 U.S.C. 360bbb-3(b) (1), unless the authorization is terminated or revoked sooner. When diagnostic testing is negative, the possibility of a false negative result should be considered in the context of a patient's recent exposures and the presence of clinical signs and symptoms consistent with COVID-19. An individual without symptoms of COVID-19 and who is not shedding SARS-CoV-2 virus would expect to have a negative (not detected) result in this assay. PERFORMED BY: [place] [address] [place] [address] PATHOLOGIST GREEN PLUMBER NOEL VILLAREAL M.D.Performed By: #### CORONAVIRUS #### [facility] ,COVID-19 Lab Corpon [id number]-CoV-2 (COVID-19) Ab [place] QlNot detectedNormal Not DetectedUniversity Hospitals Tripoint Medical CenterComment on above:Order Comment: CALL ONLY IF POS TO [phone] Healthcare Worker?: YResult Comment: This nucleic acid amplification test was developed and its performance characteristics determined by [employer]. Nucleic acid amplification tests include RT- PCR and TMA. This test has not been FDA cleared or approved. This test has been authorized by FDA under an Emergency Use Authorization (EUA). This test is only authorized for the duration of time the declaration that circumstances exist justifying the authorization of the emergency use of in vitro diagnostic tests for detection of SARS-CoV-2 virus and/or diagnosis of COVID-19 infection under section 564(b)(1) of the Act, 21 U.S.C. 360bbb-3(b) (1), unless the authorization is terminated or revoked sooner. When diagnostic testing is negative, the possibility of a false negative result should be considered in the context of a patient's recent exposures and the presence of clinical signs and symptoms consistent with COVID-19. An individual without symptoms of COVID-19 and who is not shedding SARS-CoV-2 virus would expect to have a negative (not detected) result in this assay. PERFORMED BY: [facility] [address] [place] [address] PATHOLOGIST GREEN PLUMBER NOEL VILLAREAL M.D.Performed By: #### CORONAVIRUS #### [facility] ,COVID-19 Lab Corpon [id number]-CoV-2 (COVID-19) Ab [place] QlNot detectedNormal Not DetectedUniversity Hospitals Tripoint Medical CenterComment on above:Order Comment: CALL ONLY IF POS TO [phone] Healthcare Worker?: YResult Comment: This nucleic acid amplification test was developed and its performance characteristics determined by [facility]. Nucleic acid amplification tests include RT- PCR and TMA. This test has not been FDA cleared or approved. This test has been authorized by FDA under an Emergency Use Authorization (EUA). This test is only authorized for the duration of time the declaration that circumstances exist justifying the authorization of the emergency use of in vitro diagnostic tests for detection of SARS-CoV-2 virus and/or diagnosis of COVID-19 infection under section 564(b)(1) of the Act, 21 U.S.C. 360bbb-3(b) (1), unless the authorization is terminated or revoked sooner. When diagnostic testing is negative, the possibility of a false negative result should be considered in the context of a patient's recent exposures and the presence of clinical signs and symptoms consistent with COVID-19. An individual without symptoms of COVID-19 and who is not shedding SARS-CoV-2 virus would expect to have a negative (not detected) result in this assay. PERFORMED BY: [address] [place] [address] PATHOLOGIST GREEN PLUMBER NOEL VILLAREAL M.D.Performed By: #### CORONAVIRUS #### [facility] ,COVID-19 Lab Corpon [id number]-CoV-2 (COVID-19) Ab [place] QlNot detectedNormal Not DetectedUniversity Hospitals Tripoint Medical CenterComment on above:Order Comment: CALL ONLY IF POS TO [phone] Healthcare Worker?: YResult Comment: This nucleic acid amplification test was developed and its performance characteristics determined by [employer]. Nucleic acid amplification tests include RT- PCR and TMA. This test has not been FDA cleared or approved. This test has been authorized by FDA under an Emergency Use Authorization (EUA). This test is only authorized for the duration of time the declaration that circumstances exist justifying the authorization of the emergency use of in vitro diagnostic tests for detection of SARS-CoV-2 virus and/or diagnosis of COVID-19 infection under section 564(b)(1) of the Act, 21 U.S.C. 360bbb-3(b) (1), unless the authorization is terminated or revoked sooner. When diagnostic testing is negative, the possibility of a false negative result should be considered in the context of a patient's recent exposures and the presence of clinical signs and symptoms consistent with COVID-19. An individual without symptoms of COVID-19 and who is not shedding SARS-CoV-2 virus would expect to have a negative (not detected) result in this assay. PERFORMED BY: [facility] [address] [place] [address] PATHOLOGIST GREEN PLUMBER NOEL VILLAREAL M.D.Performed By: #### CORONAVIRUS #### [facility] , Vital Signs Date TimeVital SignValuePerforming QygevikhgOaeyjaex82-58-9206 11:27-0400Body scjukj82.52 kgKathlpolly Warren DO Work Phone: [facility] CenterCzearggczd38-72-2481 11:27-0400Diastolic blood wcgenrop54 mm[Hg]Li Rinkes DO Work Phone: [facility] CenterHxuvprfsxc95-57-5669 11:27-0400Systolic blood mhjayvqd499 mm[Hg]Li Rinkes DO Work Phone: [facility] CenterQvvdzgggxe10-63-2528 13:35-0400Body bodruw834.18 cmKristina Lopez MD Work Phone: [phone]10-09-2025 13:35-0400 Body mass index (BMI) [Ratio]34 kg/n6EhvmiwKristina Lopez MD Work Phone: [phone]10-09-2025 13:35-0400 Body rzeqko93.65 kgKristina Lopez MD Work Phone: [phone]10-09-2025 13:35-0400 Diastolic blood kxkrtqhu86 mm[Hg]Kristina Lopez MD Work Phone: [phone]10-09-2025 13:35-0400 Heart rate96 /minKristina Lopez MD Work Phone: [phone]10-09-2025 13:35-0400 Systolic blood nacaawcc890 mm[Hg]Kristina Lopez MD Work Phone: [facility]09-16-2025 11:35-0400 Body knduco34.52 kgKatmary Warren DO Work Phone: [facility] CenterPzlmfepctb88-23-9345 11:35-0400Diastolic blood eflypuet83 mm[Hg]Li Warren DO Work Phone: [facility] CenterAhzsvbwbkx08-60-4568 11:35-0400Systolic blood xekcgpgd128 mm[Hg]Li Warren DO Work Phone: [facility] CenterFenvyugyzy74-31-4443 13:17-0400Body ratnzd198.18 cmUniversity Hospitals Tripoint Medical Center05-11-2025 13:17-0400Body mass index (BMI) [Ratio]34.3 kg/g4RrorrtqxaUniversity Hospitals Tripoint Medical Center05-11-2025 13:17-0400Body gmkcjitzrff33.7 [degF][facility]05-11-2025 13:17-0400Body zzvcir07.45 [facility]05-11-2025 13:17-0400Diastolic blood jniphvnu70 mm[Hg][facility]05-11-2025 13:17-0400 Heart oscb595 /[facility]05-11-2025 13:17-0400 Respiratory rate20 /[facility]05-11-2025 13:17-0400 SaO2% (BldA) [Mass fraction]98 %[facility]05-11-2025 13:17-0400Systolic blood quaisbgu216 mm[Hg][facility] 02-22-2025 09:06-0400Body gfpcoy861.18 cmUniversity Hospitals [facility]point [facility] Center 02-22-2025 09:06-0400Body mass index (BMI) [Ratio]34.2 kg/b2UdqxdcwmiUniversity Hospitals Tripoint Medical Center03-28-2025 09:06-0400Body opelev54.33 kgUniversity Hospitals Tripoint Medical Center03-28-2025 09:06-0400Diastolic blood yhwuejfp57 mm[Hg][facility]03-28-2025 09:06-0400Heart rate98 /[facility]03-28-2025 09:06-0400Systolic blood bvxilrbw061 mm[Hg][facility]09-12-2024 14:58-0400Body hssciw018.18 cmUniversity Hospitals Tripoint Medical Center09-12-2024 14:58-0400Body mass index (BMI) [Ratio]34.6 kg/m2 [facility]09-12-2024 14:58-0400Body gcjvcozlkca03.4 [degF][facility]09-12-2024 14:58-0400Body umykoc000.35 kg [facility]09-12-2024 14:58-0400Diastolic blood qfobnjfs70 mm[Hg][facility]09-12-2024 14:58-0400Heart vwgk335 /min [facility]09-12-2024 14:58-0400Respiratory rate18 /min [facility]09-12-2024 14:58-3974XlT3% (BldA) [Mass fraction]97 %[facility]09-12-2024 14:58-0400Systolic blood uwfwjtfv619 mm[Hg][facility]09-06-2024 14:32-0400 Body .18 cmUniversity Hospitals Tripoint Medical Center09-06-2024 14:32-0400Body mass index (BMI) [Ratio]34.7 kg/q2MijwvafiwUniversity Hospitals Tripoint Medical Center09-06-2024 14:32-0400Body .1 [degF][facility]09-06-2024 14:32-0400Body vgujcs157.75 kgUniversity Hospitals Tripoint Medical Center09-06-2024 14:32-0400Diastolic blood wwqmcvuv63 mm[Hg][facility] 08-03-2024 14:32-0400Heart hlfg284 /minUniversity Hospitals Tripoint Medical Center 08-03-2024 14:32-0400Respiratory rate18 /[facility] 08-03-2024 14:32-5962QfZ5% (BldA) [Mass fraction]97 %[facility]09-06-2024 14:32-0400Systolic blood jsdcksxy514 mm[Hg][facility] Encounters Encounter DateEncounter TypeCare ProviderFacilityStart: 09-10-2025 End: 58-26-3402dqlobqcfumFEMXYFAB E RINKESNot AvailableStart: 09-10-2025 End: 85-52-6777Nadfvn outpatient visit 25 minutesKathleen E Rinkes DO Work Phone: no[facility] [place] OBGYNComment on above:Enlarged uterus (Primary Dx); Uterine prolapse; Pelvic pressure in femaleStart: 09-09-2025 End: 33-44-9854sabrygieguKYZDZROX RINKESNot AvailableStart: 09-05-2025 End: 78-33-5128snuehghpzsSyhgev E Braun MD Work Phone: [facility] Work Phone: Start: 09-05-2025 End: 40-29-9561Szdkaae encounter procedureKristina Lopez MD-[facility] Work Phone: Start: 08-13-2025 End: 61-37-0445Uflfkf flowsheetKathleen E Rinkes DO Work Phone: [facility] [place] OBGYNStart: 08-13-2025 End: 78-36-0918Tgauvn flowsheetKathleen E Rinkes DO Work Phone: [facility] [place] OBGYNStart: 08-13-2025 End: 48-56-3803Euhnivn preventive medicine new patient 40-64yrsKathleen E Rinkes DO Work Phone: no[facility] OBGYNComment on above:Encounter for gynecological examination without abnormal finding (Primary Dx); Screening for malignant neoplasm of cervix; Enlarged uterus; Uterine prolapse; PerimenopauseStart: 08-13-2025 End: 10-33-7681Neodhzg encounter statusKathleen E Rinkes DO Work Phone: [facility] Work Phone: start: 08-13-2025 End: 66-99-7987wfaezqmhhqFHKOSMIA E RINKESNot AvailableStart: 89-09-9949Wdr- patient / Non-visitKristina Lopez MD-[facility] Work Phone: Start: 04-07-2025 End: 66-69-9521upiznnvazdSebsxtgasBrown [facility] Hospital Work Phone: Start: 04-07-2025 End: 17-17-4267Lrmgkwt [facility] Work Phone: Start: 02-22-2025 End: 30-07-7474kwkzkjsvqpPandrshqjMemorial Hospital Work Phone: Start: 02-22-2025 End: 50-90-4786Xtkkmdc encounter procedureC[facility] Work Phone: Start: 08-09-2024 End: 87-60-0286ewsquccarxGktkqvebdMemorial Hospital Work Phone: Start: 08-09-2024 End: 19-29-0578Cormjke encounter procedureC[facility] Work Phone: Start: 08-03-2024 End: 54-00-3546nhglmvjxoqYlasgidxbMemorial Hospital Work Phone: Start: 08-03-2024 End: 07-48-3049Jgartzn encounter procedureC[facility] Work Phone: Start: 56-06-6374Cxa-patient / Non-visitFirlewisgale [facility] Work Phone: Start: 10-06-2022 End: 86-39-1598jgykunbcceUR BETSY Muñizcility:H1 Plan of Treatment DateCare ActivityDetailAuthorStart: 09-10-2025 End: 97-61-9437Zgrzdmh encounter xywgvefsa90/14/2025 11:15 AM EDT Office Visit [facility] [address] [place] [address] Li Warren, DO [address] [place] [address] [facility] OBGYNStart: 09-09-2025 End: 89-48-5397Izsufccyemme / ancillary services piqbefshav61/13/2025 3:00 PM EDT Ancillary Procedure [facility] [address] [place] [phone] NOM[facility] OBGYNStart: 07-98-4958Rmgvzyg referral [facility] Work Phone: Start: 08-13-2025 End: 32-97-1901Rduynyp encounter nnmizsuqj01/16/2025 11:30 AM EDT Office Visit [facility] [address] [place] [phone] Li Warren, DO [address] [place] [address] Encounter for gynecological examination without abnormal findingNOMS Mcgarry OBGYNComment on above:Encounter for gynecological examination without abnormal findingStart: 23-64-1383Vqhtyxrot vaccination Influenza Vaccine (#1)[facility] HealthcareStart: 30-28-0125Xbtaboxiu for malignant neoplasm of breastMammogramNOMS HealthcareStart: 32-36-4394Pzjqmubfj for malignant neoplasm of cervixNOMS HealthcareStart: 61-71-7174Awtszdhxx for malignant neoplasm of cervixPap SmearNOMS HealthcareStart: 70-40-5049Lhjwozuxe for malignant neoplasm of colonNOMS HealthcareIGP, RFX APTIMA HPV ASCUIGP, RFX APTIMA HPV ASCU Lab Routine Screening for malignant neoplasm of cervix Ordered: 08/13/2025[facility] Work Phone: comment on above:Ordered: 08/13/2025MG Breast - bilateral ScreeningUniversity Hospitals Tripoint Medical CenterPatient referralMercy Health [facility] Work Phone: XR Ribs - right ViewsVenc[facility] Immunizations Immunization DateImmunizationNotesCare GawhfrfyGrcjekva17-63-4351vzeaydi toxoid, reduced diphtheria toxoid, and acellular pertussis vaccine, adsorbedUniversity Hospitals [facility] Center Payers DatePayer CategoryPayerPolicy [id number] Cross Blue [id number] [id number] [id number] [id number]-bfzAnji Pay [id number] Social History DateTypeDetailFacilityTobacco smoking status NHISUnknown if ever smokedMercy Health West Hospital Work Phone: Start: 77-30-9696Vym Assigned At BirthFeChillicothe VA Medical CenterTobacco smoking status NHISUnknown if ever smokedNOMS HealthcareStart: 02-22-2025 End: 15-25-5786KyeJzivyw (finding)[facility]: 15-75-8770Lmtursu smoking status NHISNever smoked tobacco (finding)[facility]: 53-63-2583Yta assigned at birthNot on [facility] InstituteGender identityNot on [facility] InstituteStart: 11-67-9128SbaUqkhpp [facility] Clinical Notes 10-07-2022 to 09-10-2025 Note Date & [id number] History of Present illness Narrative* Li Warren DO - 09/10/2025 11:15 AM EDT Images from the original note were not included. Li Warren D.O. Obstetrics and Gynecology Patient: Maria Guadalupe Archibald : 1970 (54 y.o.) Exam Date: 09/10/2025 Reason for Visit - Chief Complaint Patient presents with Follow-up Pt presents for US follow up. Denies concerns. Visit Vitals BP 122/82 Wt 215 lb LMP 07/25/2025 Allergies[1] History of Present Illness, Associated Treatments and Results - OB History Para Term AB Living 2 1 1 0 1 0 SAB IAB Ectopic Multiple Live Births 0 1 0 0 0 # Outcome Date GA Lbr José Antonio/2nd Weight Sex Type Anes PTL Lv 2 Term Vag-Spont 1 IAB Obstetric Comments Pap smear 25 years ago Mammogram 10 years ago Review of Systems - Const: Denies appetite change, fever, chills. Allergy: Denies medication reaction. Ocular: Denies visual acuity change. ENT: Denies hearing change. Endoc: Denies weight loss. Resp: Denies dyspnoea, wheezing. Cardiac: Denies angina, palpitations. GI: Denies nausea, vomiting. Haem: Denies bleeding. : Denies incontinence. MSK: Denies arthralgias, joint oedema. Derm: Denies rash, hair loss. Neuro: Denies ataxia, tremor. Also see HPI for elements of ROS documented therein and for details of positive findings, which shall supersede the foregoing. Medication Documentation Review Audit Reviewed by Shae rOtiz MA (Director Of Community Life) on 09/10/25 at 1127 Medication Order Taking? Sig Documenting Provider Last Dose Status thyroid ([place]) 120 MG tablet [id number] Take 120 mg by mouth Daily Li E Rinkes, DO Active Medical History[2] Surgical History[3] Family History[4] Physical Exam - General appearance, mentation, extraocular movements, facial strength and movement, hearing, upper and lower extremity strength and tone, sensation to gross testing, coordination, and gait are normalor at baseline unless noted below. General: Alert, cooperative, no distress, appears stated age Head: Normocephalic, without obvious abnormality, atraumatic Eyes: sclera anicteric Ears: no obvious hearing deficit Skin: Warm and dry Heart: Regular rate and rhythm, S1 and S2 normal, no murmur Lungs: Clear to auscultation bilaterally, respirations unlabored Abdomen: Soft, non-tender, no masses, no organomegaly Extremities normal, atraumatic, no cyanosis or edema Neurologic: alert and oriented Psych: cooperative with exam Diagnoses and all orders for this visit: Enlarged uterus Uterine prolapse Pelvic pressure in female Reviewed pelvic US at length- uterus larger/normal size, 150ml with 2 small fibroids noted. OvariesWNL. The patient desires treatment with hysterectomy. Will plan for TLH/BSO for prolapse/enlarged uterus/pelvic pressure. The surgical procedure was reviewed at length with the patient. The risks andalternatives of surgery were reviewed. The patient was advised of the potential complications of surgery- including, but not limited to- bleeding, infection, scarring, injury to the bowel/bladder/ureters/major blood vessels - further surgery to repair those injuries- stroke, heart attack, blood clots to the legs/lungs or . Postoperative expectations and activity restrictions reviewed with the patient. Time was given for the patient to ask questions and all questions have been answered. Thesurgical consent was signed. ICD-10-CM 1. Enlarged uterus N85.2 2. Uterine prolapse N81.4 3. Pelvic pressure in female R10.20 [1] No Known Allergies [2] Past Medical History: Diagnosis Date Hypothyroid [3] Past Surgical History: Procedure Laterality Date TONSILLECTOMY VAGINAL DELIVERY [4] Family History Adopted: Yes documented in this encounterMoberly Regional Medical CenterJvwstuyvja04-92-1055 Hospital Discharge instructionsAmbulatory Orders* Referral to Gastroenterology Time Frame: 09/05/25, Location: None [facility] Work Phone: 1(314) 687-619209-16-2025 History of Present illness Narrative* Li Warren, DO - 08/13/2025 11:30 AM EDT Images from the original note were not included. Li Warren D.O. Obstetrics and Gynecology Patient: Maria Guadalupe Archibald : 1970 (54 y.o.) Yearly Wellness Exam Date: 08/13/2025 Reason for Visit - Chief Complaint Patient presents with Gynecologic Exam Pt has not had pap smear 25 years ago, Mammogram 10 years. Pt has an order for mammogram at [place] already. Pt c/o weak bladder. Denies breast concerns. LMP 07/25/25 menses irregular. Visit Vitals BP 120/82 Wt 215 lb LMP 07/25/2025 No Known Allergies History of Present Illness, Associated Treatments and Results - OB History Para Term AB Living 2 1 1 0 1 0 SAB IAB Ectopic Multiple Live Births 0 1 0 0 0 # Outcome Date GA Lbr José Antonio/2nd Weight Sex Type Anes PTL Lv 2 Term Vag-Spont 1 IAB Obstetric Comments Pap smear 25 years ago Mammogram 10 years ago Review of Systems - General: Chills denies. Allergy/Immunology: Rash Denies. ENT: Denies Difficulty swallowing. Endocrine: Denies Cold intolerance denies. Heat intolerance denied. Respiratory: Denies Chest pain denies. Shortness of breath denies. Breast: Denies Bloody nipple discharge denies. Breast lump denies. Cardiovascular: Denies Chest pain. Gastrointestinal: Abdominal pain denies. Blood in stool denies. Hematology: Easy bruising denies. Prolonged bleeding denies. Women Only: Breast lump denies. Vaginal bleeding between periods is denied. Vaginal discharge/itching denied. Genitourinary: Blood in urine denies. Painful urination denies. Incontinence denies. Skin: Hair changes. Neurologic: Seizures denied. Stroke denies. Psychiatric: Anxiety denies. Depressed mood denies. Medication Documentation Review Audit Reviewed by Shae Ortiz MA (Director Of Community Life) on 08/13/25 at 1133 Medication Order Taking? Sig Documenting Provider Last Dose Status thyroid ([place]) 120 MG tablet [id number] Yes Take 120 mg by mouth Daily Li Warren, Active Past Medical History: Diagnosis Date Hypothyroid Past Surgical History: Procedure Laterality Date TONSILLECTOMY VAGINAL DELIVERY Family History Adopted: Yes Physical Exam - General appearance, mentation, extraocular movements, facial strength and movement, hearing, upper and lower extremity strength and tone, sensation to gross testing, coordination, and gait are normalor at baseline unless noted below. General Examination: GENERAL APPEARANCE: alert oriented well developed, well nourished. HEAD: normocephalic atraumatic. EYES: sclera anicteric. EARS: no obvious hearing deficit. SKIN: warm and dry. HEART: regular rate and rhythm. LUNGS: clear to auscultation bilaterally. CHEST: axillary nodes grossly normal. BREASTS: no masses palpable bilaterally, normal nipples bilaterally. ABDOMEN: soft, nontender, nondistended, no masses palpable. BACK: no costovertebral angle tenderness, no obvious scoliosis/kyphosis. FEMALE GENITOURINARY: normal vaginal mucosa, cervix absent of lesions, nontender, uterus RV, immobile, ? Enlarged, ovaries nonpalpable and nontender, uterine prolapse grade 3 EXTREMITIES: no edema. NEUROLOGIC: alert and oriented. PSYCH: cooperative with exam. Diagnoses and all orders for this visit: Encounter for gynecological examination without abnormal finding Screening for malignant neoplasm of cervix - IGP, RFX APTIMA HPV ASCU Enlarged uterus Uterine prolapse Perimenopause Pap, pelvic and breast exam completed. Findings of today's exam discussed with the patient. Continue MSBE. Ca/Vit D recommendations reviewed with the patient. The patient is to contact the office with any changes to her gynecological condition. The patient is to return in 1 year or as needed ? Enlarged uterus vs ovary on exam- pelvic US ordered. Discussed generalized pelvic fullness- difficult to determine enlarged uterus/ovary/bowel. Will follow up after US. Patient not really symptomatic of uterine prolapse. Briefly discussed options for prolapse if treatment desired. Will discuss further after US. Patient having worsening issues with perimenopause, particularly brain fog. Patient unsure if more so related to perimenopause or bipolar/ADHD. Patient given information on Dr. Vi Vera and her books/podcast. Did discuss magnesium and brain fog. ICD-10-CM 1. Encounter for gynecological examination without abnormal finding Z01.419 2. Screening for malignant neoplasm of cervix Z12.4 IGP, RFX APTIMA HPV ASCU 3. Enlarged uterus N85.2 4. Uterine prolapse N81.4 5. Perimenopause N95.1 documented in this encounterMoberly Regional Medical [id number] Evaluation note* Diagnosis Onset Date Resolution Status Admit Date Hypothyroid acuteMarch 2024 9:04amScreening mammogram for breast canceracuteJanch 2024 9:04am [facility] Work Phone: 1(792) 579-391411-10-2022 NotePROCEDURE: XR FOOT RT MIN 3 VIEWS HISTORY: Pain in right foot , chronic COMPARISON: None. FINDINGS: BONES:No fracture, dislocation, bone lesion. No significant joint space narrowing or articular surface irregularity. Mild degenerative enthesopathic spurring of the calcaneus. SOFT TISSUES:No visible soft tissue swelling. EFFUSION:None visible. OTHER: Negative. IMPRESSION: 1. No acute or suspicious bone abnormality. 2. Minimal degenerative changes. Electronically authenticated by: BETSY GARCIA Date: 2022-10-07 08:22[facility]Evaluation noteNo assessment information availableMercy Health West Hospital Work Phone: Evaluation note* Diagnosis Onset Date Resolution Status Viral URI with cough noneactive [facility] Work Phone: Evaluation note* Diagnosis Onset Date Resolution Status Admit Date [facility]Mount[facility]ch [facility] 9:04amScreening mammogram for breast canceracuteJanch 2024 9:04am [facility] Work Phone: Evaluation note* Diagnosis Encounter for gynecological examination without abnormal finding- Primary Screening for malignant neoplasm of cervix Screening for malignant neoplasm of the cervix Enlarged uterus Hypertrophy of uterus Uterine prolapse Uterine prolapse without mention of vaginal wall prolapse Perimenopause Symptomatic menopausal or female climacteric states documented in this encounter [facility] HealthcareEvaluation note* Diagnosis Onset Date Resolution Status Admit Date Colon cancer screening acuteOctober 2024 1:30pmHypothyroidacuteOctober 2024 1:30pmPeripheral neuropathyacuteOctober 2024 1:30pmRib pain on right sideacuteOctober 2024 1:30pm [facility] Work Phone: Evaluation note* Diagnosis Enlarged uterus- Primary Hypertrophy of uterus Uterine prolapse Uterine prolapse without mention of vaginal wall prolapse Pelvic pressure in female documented in this encounter [facility] Summary Purpose Family History No Family History Records FoundNo Family History Records FoundNo Family History Records FoundNo Family History Records Found Advance Directives Advance Directive Response Recorded Date/ Time Advance Directives No March 23 7:39pm Chief Complaint and Reason for Visit Chief Complaint Admit Date refills February 22, 2025 9:0 4am sinus congestion April 07, 2025 1:13p m Reason for Visit Admit Date Hypothyroid February 22, 2025 9:0 4am Screening mammogram for breast cancer [facility] 2024 9:04am Chief Complaint cough , congestion Chief Complaint cough , congestion cough, stomach issuesReason for VisitViral URI with cough Chief Complaint Admit Date refills February 22, 2025 9:0 4am Chief Complaint Admit Date pain in rib, feet numbness September 05, 2025 1:30pm Reason for Visit Admit Date Colon cancer screening September 05, 2025 1:30pm Hypothyroid September 05, 2025 1: 30pm Peripheral neuropathy September 05, 2025 1:30pm Rib pain on right side September 05, 2025 1:30pm Additional Source Comments INFORMATION SOURCE (unrecogn ized section and content) DATE CREATED AUTHOR 12/20/2021 [facility] DATE CREATED AUTHOR AUTHOR'S ORGANIZ ATION 01/18/2022 [facility] DATE CREATED AUTHOR AUTHOR'S ORGANIZ ATION 10/11/2022 [facility] DATE CREATED AUTHOR AUTHOR'S ORGANIZ ATION 09/10/2025 [facility] EPIC Care Teams (unrecognized sec tion and content) Team Status: Active Member Role Status Dates Kristina Lopez MD Primary Care Provider Active Team Status: Active Member Role Status Dates Kristina Lopez MD Primary Care Provider Active Start: June 11, 2025 Kristina Lopez MDAttending ProviderActiveStart: June 11, 2025 Team Status: Inactive Member Role Status Dates Kristina Lopez MD Primary Care Provider Active Start: September 05, 2025 End: September 05, 2025Kristina Lopez MDAttjamison ProviderActiveStart: September 05, 2025 End: September 05, 2025 Team Status: Inactive Member Role Status Dates Kristina Lopez MD Primary Care Provide r, Attending Provider Active Start: February 22, 2025 End: February 22, 2025 Team Status: Active Member Role Status Dates Kristina Lopez MD Primary Care Provide r, Attending Provider Active Start: May 23, 2024 Team Status: Inactive Member Role Status Dates Kristina Lopez MD Primary Care Provider Active Start: August 03, 2024 End: August 03Amrit Mitchell ProviderActiveStart: August 03, 2024 End: August 03, 2024 Team Status: Inactive Member Role Status Dates Kristina Lopez MD Primary Care Provider Active Start: August 09, 2024 End: August 09, 2024Chelle Toney APRN BIN FILLER-CAttending ProviderActive Start: August 09, 2024 End: August 09, 2024 Team Status: Inactive Member Role Status Dates Kristina Lopez MD Primary Care Provider Active Start: April 07, 2025 End: April 07Amrit Melendrez ProviderActiveStart: April 07, 2025 End: April 07, 2025Team MemberRelationshipSpecialtyStart DateEnd Date Unallocated, [facility] Provider, [address] [place] [address] PCP - GeneralFamily Skvhtfok53/14/25 Goals (unrecognized section and content) Goals may be documented in a n alternate sectionGoals may be documented in an alternate sectionGoals may be documented in an alternate sectionGoals may be documented in an alternate sectionGoals may be documented in an alternate section Reason for Visit (unrecogniz ed section and content) ReasonCommentsGynecologic ExamPt has not had pap smear 25 years ago, Mammogram 10 years. Pt has an order for mammogram at [place] already. Pt c/o weak bladder. Denies breast concerns. LMP 07/25/25 menses irregular.ReasonComments Follow-upPt presents for US follow up. Denies concerns. FOR RECORDS PERTAINING TO PATIENTS WHO ARE OR HAVE BEEN ENROLLED IN A CHEMICAL DEPENDENCY/SUBSTANCEABUSE PROGRAM, SOME INFORMATION MAY BE OMITTED. This clinical summary was aggregated from multiple sources. Caution should be exercised in using it in the provision of clinical care. This summary normalizes information from multiple sources, and as a consequence, information in this document may materially change the coding, format and clinical context of patient data. In addition, data may be omitted in some cases. CLINICAL DECISIONS SHOULD BE BASED ON THE PRIMARY CLINICAL RECORDS. [facility] [employer] [facility]. provides no warranty or guarantee of the accuracy or completeness of information in this document.
--- NOTE | 2025-09-26 14:34 | XR_ITS ---
The [address] [address] Patient Name: OXANA ARCHIBALD MRN: [facility]:[id number] date: 1970 Sex: F Assigned Patient Location: LAB Current Patient Location: Accession/Order Number: [id number] Exam Date: 09/26/2025 14:39 Report Date: 09/27/2025 09:51 At the request of: OYGESH WILSON MD Procedure: XR ribs RT min 3V w CXR1V PA CHEST WITH RIGHT RIBS: CLINICAL HISTORY: Right lower rib pain for the past 2 months. No injury. COMPARISON: None The chest film shows no infiltrate, effusion or pneumothorax. The cardiac, hilar and mediastinal silhouettes are within normal limits. No vascular congestion is seen. There is dextroscoliotic curvature and endplate spurring. AP and both oblique views of the right ribs show no acute or healing displaced fractures or bony destruction. XR/XR ribs RT min 3V w CXR1V IMPRESSION: NO ACUTE FINDINGS. Impression dictated by: Kelly Goodson M.D. 09/27/2025 9:51 AM Dictation Location: [place] [address] Electronically authenticated by: [id number] Date: 09/27/2025 09:51
[2025-09-26 15:01] LABS: Hematocrit 42.1 % (36.0-48.0); Hemoglobin 14.8 g/dL (12.0-16.0); Immature Granulocytes Abs Auto 0.03 10^3/uL (0.00-0.03); Immature Granulocytes Pct Auto 0.4 % (0.0-0.5); Lymphocytes Absolute Auto 2.6 10^3/uL (1.2-3.8); Mean Corpuscular HGB Conc 35.2 g/dL (29.9-35.2); Mean Corpuscular Hemoglobin 31.2 pg (26.7-34.0); Mean Corpuscular Volume 88.8 fL (81.0-99.0); Platelet Count 301 10^3/uL (150-450); Red Blood Count 4.74 10^6/uL (4.20-5.40); White Blood Count 7.4 10^3/uL (4.0-11.0)
[2025-09-26 15:10] LABS: Anion Gap 15.3; Blood Urea Nitrogen 15.0 mg/dL (7.0-18.0); Calcium 9.2 mg/dL (8.5-10.1); Carbon Dioxide 24.7 mmol/L (21.0-32.0); Chloride 101 mmol/L (98-107); Estimated GFR (African America >60 (>=60 mL/min/1.73m^2); Estimated GFR (Non-African Ame >60 (>=60 mL/min/1.73m^2); Glucose 199 mg/dL (74-106); Potassium 4.0 mmol/L (3.5-5.1); Sodium 137 mmol/L (136-145); Thyroid Stimulating Hormone 0.453 uIU/mL (0.358-3.740)
[2025-09-26 16:18] LABS: Folate 26.60 ng/mL (8.60-58.90)
[2025-09-27 04:07] LABS: Vitamin B12 339 pg/mL (232-1245)
== END 2025-09-26 14:03 | disposition home or self-care (01) ==
LOC: LAB 14:03
PROVIDERS: PCP Family Medicine; Visit Provider Family Medicine
DX: G62.9 Polyneuropathy, unspecified (principal); E03.9 Hypothyroidism, unspecified; R07.89 Other chest pain
CPT/HCPCS: 36415; 71101; 80048; 82607; 82746; 83036; 84439; 84443; 85025

== ENCOUNTER 2025-10-21 16:15 | Emergency (ER) | payer BC, SELFPAY ==
--- OUTSIDE RECORDS SUMMARY | 2025-10-15 19:43 | XMS_ITS | Continuity of Care Document ---
Author Organization [facility] Address [address] [place] [address] Phone Care Team Providers Care Sales Support Advisor Name Role Phone Kristina Lopez MD Primary Care Provider Kristina Lopez MD Attending Provider Li Warren DO Attending Provider [phone] Care Teams Patient Care Team Team Status: Active Member Role/Relationship Status Dates Kristina Lopez MD Primary Care Provider Active Visit Care Team Team Status: Inactive Member Role/Relationship Status Dates Kristina Lopez MD Primary Care Provider Active Start: September 05, 2025 End: September 05, 2025Brianna Velasquez ProviderActiveStart: September 05, 2025 End: September 05, 2025 Patient Care Team Team Status: Active Member Role/Relationship Status Dates Kristina Lopez MD Primary Care Provider Active Start: September 26, 2025 Brianna Velasquez ProviderActiveStart: September 26, 2025 Patient Care Team Team Status: Inactive Member Role/Relationship Status Dates Kristina Lopez MD Primary Care Provider Active Start: October 15, 2025 End: October 15, 2025Li Warren DOAttjamison ProviderActiveStart: October 15, 2025 End: October 15, 2025 Chief Complaint and Reason for Visit Chief Complaint Admit Date pain in rib, feet numbness September 05, 2025 1:30pm Uterine Prolapse, Enlarged Uterus, Fibro ids October 15, 2025 3:44pm Reason for Visit Admit Date Colon cancer screening September 05, 2025 1:30pm Hypothyroid September 05, 2025 1: 30pm Peripheral neuropathy September 05, 2025 1:30pm Rib pain on right side September 05, 2025 1:30pm Reason for Referral Type Reason(s) Provider Provider Contact Information P cailin Address Start Date Referral to sales correspondence clerk Encounter for screening for malignant neoplasm of colon Z12.11 - Encounter for screening for malignant neoplasm of cekuwZ28.11 - Encounter for screening for malignant neoplasm of colonCatherine Janes Padilla Phone: [phone] [facility], [address] [facility] [address] Allergies, Adverse Reactions, Alerts Allergen Type Severity Reaction Last Updated Verified Status No Known Allergies Allergy Unknown October 15, 2025 4:18pmYesActive Social History Smoking Status Status Start Date End Date Date of Observa tion Never smoked tobacco (finding) October 15, 2025 3:54pm Observation Status Observation Response Date of Response Legal Sex Female (finding) [facility] 1969 Family History Relationship Condition Age at Onset Recorded Date/T rené Not Specified Adopted Unknown Problems Active Problems Problem Diagnosis/Recorded Date Onset Date Stat Colon cancer screening September 05, 2025 12:56pm Unkno wn Active Rib pain on right side September 05, 2025 12:49pm Unkno wn Active Screening mammogram for breast cancer February 22, 2025 8:18am Unknown Active Gastroenteritis August 10, 2024 9:35am Unknown Active Hypothyroid April 24, 2024 12:00pm Unknown Activ e Peripheral neuropathy September 05, 2025 1:00pm Unknown Active Respiratory infection April 07, 2025 1:09pm Unknown Active Bronchitis August 10, 2024 9:35am Unknown Active Medications Medication Status Dose Units Route Directions Qty Days Refills S tart Date Stop Date End Date Reason(s) Instructions Adherence Thyroid (Pork) ([place] Thyroid) 90 mg tablet Discontin ued 0 .ROUTE.YLYRICC341Ryzuu 2023 10:19amAugust 2023 8:56amTAKE 1 TABLET BY MOUTH EVERY DAYThyroid (Pork) ([place] Thyroid) 90 mg tabletDiscontinued0.ROUTE .CONQWYI123Mjqoyo 2023 8:56amMarch 2024 12:19pmTAKE 1 TABLET BY MOUTH EVERY DAYThyroid (Pork) ([place] Thyroid) 90 mg tabletDiscontinued0.ROUTE.COMPLEX 300February 14, 2025 12:19pmMarch 2024 7:13amTAKE 1 TABLET BY MOUTH EVERY DAYThyroid (Pork) ([place] Thyroid) 90 mg tabletDiscontinued0.ROUTE.AQTPXLF886 February 20, 2025 7:13amMay 2024 12:21pmTAKE 1 TABLET BY MOUTH EVERY DAY Thyroid (Pork) ([place] Thyroid) 120 mg fztsyuKjhjoanpgpcj838XOWCBjvru264Gzqfon 5th, 2025 11:00pmNov2024 4:08ddWjybrmt-Jvcshtiepmext-Hbcaucir (Excedrin Extra Strength) 250-250-65 mg kveecmDpucoq0FWTVEJxlvx 6 hours as needed for painOctober 15, 2025 12:00amUnknownThyroid (Pork) ([place] Thyroid) 120 mg etufqyOhxstu499ZTESTqhaw morningOctober 15, 2025 12:00amUnknownThyroid (Pork) ([place] Thyroid) 90 mg fgglosOouzamfzdakx305RCITJelluPgepb 2023 11:00pmApril 2023 10:19amAzithromycin 250 mg vcgkckBjfmskicxzvk5VJdrijn228 August 08, 2024 11:00pmMar 2024 12:18pmBronchitis Bronchitis, not specified as acute or chronicTake 2 on day 1 and then take 1 for the next 4 days (days 2-5)Methylprednisolone (Medrol (Hill)) 4 mg tablets,dose hclmAytuzsacwpry3KRvgi package wggrgxxgxi467Kgyckvvdt 11th, 2024 11:00pmMar 2024 12:18pmPO PER PKG DIRAlbuterol Sulfate 90 mcg/actuation HFA aerosol ljydxscCeqvzaivnrjk6CTGXOXNBCJMNKCUBLEQ 4-6 HOURS as needed for shortness of breath or wheezing6.7300Sept2023 11:00pmMar 2024 12:19pm Thyroid (Pork) ([place] Thyroid) 90 mg hoghjuQydrewjfbtrf08PCYCSymvtKoz 2024 12:20pmAugust 2024 12:00pmAzithromycin 250 mg lfhxcwFtynseqxjbst4AL .OERUZSR71ZuxApril 06, 2025 11:00pmOctober 2024 12:37pmFor 250 mg dose pack: take 500 mg today (day 1), then 250 mg for 4 days (days 2-5) POAlbuterol Sulfate 90 mcg/actuation HFA aerosol qymkfydRjarmhhvnjhu9DCOLUPOJTAAELADCBP 4-6 HOURS as needed for shortness of breath or wheezing6.70April 06, 2025 11:00pmOctober 2024 12:37pmMethylprednisolone (Medrol (Hill)) 4 mg tablets,dose packDiscontinued 0POper package rossprshoi024Pfp 10th, 2025 11:00pmOctober 2024 12:37pmPO PER PKG DIRBenzonatate 100 mg cafnrhiYmfltlkenbyh514GQBBAmtir times yrcfe7509 August 02, 2024 11:00pmFebruary 14, 2025 12:18pm Immunizations Immunization Event Date Not Given Reason Dose Number Pin Drafting Machine Tender Lot Number Reason(s) Given Vaccine Information Statement (VIS) Detail Administration Location Tetanus, Diphtheria, Pertussis (Tdap) February Relevant Diagnostic Tests and/or Laboratory Data Laboratory Results Test Collection Date/Time Result Date/Time Result Interpretation Reference Range Result Comment Performing Site Vitamin B12 Level September 26, 2025 1:33pm September 26, 2025 1:33pm 339 pg/mL 232-1245Performed at: [facility] Lab[address] [id number] Director: Rodrigo Lopez PhD, Phone: [phone] Thyroxine September 26, 2025 1:33pmOct2024 1:33pm0.99 ng/dL0.76-1.46Folate September 26, 2025 1:33pmOct2024 1:33pm26.60 ng/mL8.60-58.90Estimated Average GlucoseSeptember 26, 2025 1:33pmOctober 2024 1:31pd538 mg/dL Thyroid Stimulating Hormone 3rd GenSeptember 26, 2025 1:33pmOct2024 1:33pm0.453 u[iU]/mL0.358-3.740Anion GapOct2024 1:33pmOctober 2024 1:33pm15.3Basophils # (Auto)September 26, 2025 1:33pmOctober 2024 1:33pm0.0 10 3/uL0.0-0.1Hemoglobin J8mUlitupt2024 1:33pmOctober 2024 1:33pm7.2 %Above high normal4.5-6.2ADA RECOMMENDED LIMIT 4.0 - 6.0ADA THERAPEUTIC TARGET < 7.0ACTION SUGGESTED> 7.0BUN/Creatinine RatioOct2024 1:33pmOctober 2024 1:33pm17.6Basophils (%) (Auto)September 26, 2025 1:33pmOctober 2024 1:33pm0.5 %0.2-2.0Blood Urea NitrogenOct2024 1:33pmOctober 2024 1:33pm15.0 mg/dL7.0-18.0Eosinophils # (Auto)September 26, 2025 1:33pmOctober 2024 1:33pm0.2 10 3/uL0.0-0.7Calcium LevelOctober 2024 1:33pmOctober 2024 1:33pm9.2 mg/dL8.5-10.1Eosinophils (%) (Auto)September 26, 2025 1:33pmOctober 2024 1:33pm2.0 %0.9-7.0Chloride LevelOct2024 1:33pmOctober 2024 1:45gc877 mmol/L98-107 HematocritOct2024 1:33pmOctober 2024 1:33pm42.1 %36.0-48.0 Carbon Dioxide LevelOct2024 1:33pmOctober 2024 1:33pm24.7 mmol/L21.0-32.0HemoglobinOct2024 1:33pmOct2024 1:33pm14.8 g/dL12.0-16.0CreatinineOct2024 1:33pmOctober 2024 1:33pm0.85 mg/dL0.55-1.02Immature Granulocyte # (Auto)September 26, 2025 1:33pmOctober 2024 1:33pm0.03 10 3/uL0.00-0.03Estimated GFR ()September 26, 2025 1:33pmOctober 2024 1:33pm>60>=60 mL/min/1.73m 2Immature Granulocyte % (Auto)September 26, 2025 1:33pmOctober 2024 1:33pm0.4 % 0.0-0.5Estimated GFR (Non- AmericanOct2024 1:33pmOctober 2024 1:33pm>60>=60 mL/min/1.73m 2Lymphocytes # (Auto)September 26, 2025 1:33pm September 26, 2025 1:33pm2.6 10 3/uL1.2-3.8Glucose LevelOct2024 1:33pmOctober 2024 1:20ia829 mg/dLAbove high bopprq86-966Mtamfeimped (%) (Auto)September 26, 2025 1:33pmOctober 2024 1:33pm35.2 %20.5-60.0Potassium LevelOct2024 1:33pmOctober 2024 1:33pm4.0 mmol/L3.5-5.1Mean Corpuscular HemoglobinOctober 2024 1:33pmOctober 2024 1:33pm31.2 pg 26.7-34.0Sodium LevelOctober 2024 1:33pmOctober 2024 1:82sr774 mmol/U883-376Jqwh Corpuscular Hemoglobin ConcentOct2024 1:33pmOctober 2024 1:33pm35.2 g/dL29.9-35.2Mean Corpuscular VolumeOctober , 2025 1:33pmOctober 2024 1:33pm88.8 fL81.0-99.0Monocytes # (Auto)September 26, 2025 1:33pmOctober 2024 1:33pm0.4 10 3/uL0.3-0.8Monocytes (%) (Auto) September 26, 2025 1:33pmOctober 2024 1:33pm5.4 %1.7-12.0Mean Platelet VolumeOct2024 1:33pmOct2024 1:33pm9.4 fLBelow low normal 9.5-13.5Neutrophils # (Auto)September 26, 2025 1:33pmOctober 2024 1:33pm 4.2 10 3/uL1.4-6.5Neutrophils (%) (Auto)September 26, 2025 1:33pmOct2024 1:33pm56.5 %43.0-75.0Platelet CountOct2024 1:33pmOct2024 1:38pr330 10 3/iN245-334Zdr Blood CountOct2024 1:33pmOct2024 1:33pm4.74 10 6/uL4.20-5.40Red Cell Distribution WidthOct2024 1:33pmOct2024 1:33pm11.5 %11.0-15.0Corrected White Blood Count September 26, 2025 1:33pmOctober 2024 1:33pm7.4 10 3/uL4.0-11.0Corrected White Blood CountOctober 15, 2025 4:21pmNov2024 4:37pm8.8 10*3/uL 3.8-11.6[facility] [id number] [address] [place] [address]Buqndxqjlog WBC CountOctober 15, 2025 4:21pmNov2024 4:37pm8.8 10*3/uL3.8-11.6FB[facility] [id number] [address] [facility] [address]Npv Blood CountNov2024 4:pmOctober 15, 2025 4:37pm4.33 10*6/uL3.60-5.00[facility] [id number] [address] [facility] [address]NtkxxccwdmFenyftza 18th, 2025 4:21pmOctober 15, 2025 4:37pm 13.3 g/dL11.8-15.4FB[facility] [id number] [address] [facility] [address]VqcjoqtlmvHygosdbu 18th, 2025 4:21pmOctober 15, 2025 4:37pm 38.1 %34.0-46.4FB[facility] [id number] [address] [facility] [address]Gacc Corpuscular VolumeNov2024 4:pmOctober 15, 2025 4:37pm87.9 xY40-860RjcswgkqyAshtabula [facility] [id number] [address] [facility] [address]Exqo Corpuscular HemoglobinNov2024 4:pmOctober 15, 2025 4:37pm30.7 pg24.7-34.3FB[facility] [id number] [address] [facility] [address]Femm Corpuscular Hemoglobin ConcentOctober 15, 2025 4:21pm October 15, 2025 4:37pm35.0 g/dL32.0-35.0[facility] [id number] [address] [facility] [address]Qsb Cell Distribution WidthOctober 15, 2025 4:21pmOctober 15, 2025 4:37pm12.6 %11.9-15.3FB[facility] [id number] [address] [facility] [address]Fpqhiccd CountNovember 2024 4:21pmNov2024 4:80qa453 10*3/fS368-765BlzewxmdnAshtabula County [facility] [id number] [address] [facility] [address]Hkdn Platelet VolumeNov2024 4:2024 4:37pm7.5 fL6.3-10.7FBelle[facility] [id number] [address] [facility] [address]Kqarqrkxjkl (%) (Auto)October 15, 2025 4:pmOctober 15, 2025 4:37pm58.5 %.[facility] [id number] [address] [facility] [address]Mdhoqampcku (%) (Auto)October 15, 2025 4:pmOctober 15, 2025 4:37pm34.6 %.[facility] [id number] [address] [facility] [address]Ltnonfjqn (%) (Auto)October 15, 2025 4:2024 4:37pm5.0 %.[facility] [id number] [address] [facility] [address]Ncdtwbyijid (%) (Auto)October 15, 2025 4:2024 4:37pm1.3 %.[facility] [id number] [address] [facility] [address]Rosjqknxy (%) (Auto)October 15, 2025 4:2024 4:37pm0.6 %.[facility] [id number] [address] [facility] [address]Kxlydxvpd RBC Relative Count (auto)October 15, 2025 4:21pm October 15, 2025 4:37pm0.1 /100{WBC}0-0.5FB[facility] [id number] [address] [facility] [address]Rrrkmbjuxfd # (Auto)October 15, 2025 4:2024 4:37pm5.2 10*3/uL1.8-7.7FB[facility] [id number] [address] [facility] [address]Zqkepjgmpxa # (Auto)October 15, 2025 4:pmOctober 15, 2025 4:37pm3.1 10*3/uL1.00-4.8[facility] [id number] [address] [facility] [address]Spyqdpgkk # (Auto)October 15, 2025 4:pmOctober 15, 2025 4:37pm0.4 10*3/uL0.0-0.8[facility] [id number] [address] [facility] [address]Tjlomvpbydz # (Auto)October 15, 2025 4:21pmNov2024 4:37pm0.1 10*3/uL0.0-0.45[facility] [id number] [address] [facility] [address]Sjswdshmh # (Auto)October 15, 2025 4:21pmOctober 15, 2025 4:37pm0.1 10*3/uL0.0-0.2[facility] [id number] [address] [facility] [address]Ytocgwodwdw TimeOctober 15, 2025 4:pmOctober 15, 2025 5:06pm11.7 s9.0-12.9A hematocrit value greater than 55% may lead to inaccurate results in coagulation testing. Patientshaving hematocrit values >55% require a special collection tube for coagulation studies. Please contact the laboratory at [phone] for redraw instructions.[facility] [id number] [address] [facility] [address]Tsshrapyl Time International RatioNovember 2024 4:21pm October 15, 2025 5:06pm1.0INR Therapeutic Range A) Pre- and Peroperative OAT started two weeks before surgery. NOT HIP SURGERY: 1.5 - 2.5 HIP SURGERY: 2 - 3B) Primary and secondary prevention of venous THROMBOSIS: 2 - 3C) Active venous thrombosis, pulmonary embolismand prevention of recurrent venous thrombosis: 2 - 3D) Prevention of arterial thromboembolismincluding patients with mechanical heart valves: 3 - 4.5FB[facility] [id number] [address] [facility] [address]Xqwtxpvwd Partial Thromboplast TimeOctober 15, 2025 4:21pm October 15, 2025 5:06pm25.5 s25.1-36.5A hematocrit value greater than 55% may lead to inaccurate results in coagulation testing. Patientshaving hematocrit values >55% require a special collection tube for coagulation studies. Please c ontact the laboratory at [phone] for redraw instructions.[facility] [id number] [address] [facility] [address]Tpwjsob LevelOctober 15, 2025 4:pmOctober 15, 2025 5:17cy343 mg/dLAbove high uqmvsj89-872DWT recommended reference rangeRandom Glucose Reference Range is dependent on time and content of last meal. Glucose of more than 200 mg/dL in a nonstressed, ambulatory subject supports the diagnosisof Diabetes Mellitus.[facility] [id number] [address] [facility] [address]Ywwrc Urea NitrogenOctober 15, 2025 4:2024 5:12pm13 mg/dL7-25[facility] [id number] [address] [facility] [address]NyjwzirvgsIevnbwje 18th, 2025 4:2024 5:12pm 0.71 mg/dL0.60-1.20[facility] [id number] [address] [facility] [address]Ahbuncamy GFR (CKD-EPI)October 15, 2025 4:2024 5:12pm> 60.0 mL/MinAshtabula County Medical Center Ctr [id number] [address] [facility] [address]Cusqgd LevelOctober 15, 2025 4:2024 5:30oe934 mmol/M341-821OomwmigmsAshtabula County [facility] [id number] [address] [facility] [address]Atbhmsjzf LevelOctober 15, 2025 4:2024 5:12pm4.4 mmol/L3.5-5.1FB[facility] [id number] [address] [facility] [address]Wcwpkgkn LevelOctober 15, 2025 4:pmOctober 15, 2025 5:37vc972 mmol/Q98-723FgjhiazmiAshtabula County Medical Center [facility] [id number] [address] [place] [address]Carbon Dioxide LevelOctober 15, 2025 4:21pmOctober 15, 2025 5:12pm25.6 mmol/L21.0-31.0[facility] [id number] [address] [facility] [address]Lvqmr GapOctober 15, 2025 4:21pmOctober 15, 2025 5:12pm 10.8 mEq/L6.0-15.0[facility] [id number] [address] [facility] [address]Kuvnsma LevelOctober 15, 2025 4:pmOctober 15, 2025 5:12pm8.8 mg/dL8.6-10.3FB[facility] [id number] [address] [facility] [address]Udludywz Creatinine Clearance (ChemOctober 15, 2025 4:21pm October 15, 2025 5:12pmN/AFBellevue Hospital Ctr [id number] [address] [facility] [address] Vital Signs Vital Reading Result Reference Range Collection Date/Time Height 67 [in_i] September 05, 2025 12:47gdDgdeqe39.65 [facility]Octkn[facility] 2024 12:35pmHeart Rate96 /dcl64-151Zlhvjcx 2024 12:35pmBP Jnvhjuqn885 mm[Hg]100-140Octknox county hospital 2024 12:35pmBP Iasxfpffu51 mm[Hg]60-100[facility] 2024 12:35pmBMI (Body Mass Index)34.0 kg/r8Ktlgqgf 2024 12:35pm Advance Directives Advance Directive Response Recorded Date/ Time Advance Directives No March 23 6:39pm Insurance Providers Guarantor Maria Guadalupe Neri Address [address] [facility] [address]Vbcgkys Info.Home Phone: Payer Group Member ID Coverage Type Subscriber Relationship to Subscriber Effective Date Expiration Date Bryce CLARK Id: [id number] A Halle Id: [id number] [address] [facility] [address] Home Phone: Self Encounters Encounter Location(s) Arrival/Admit Date Discharge/Departure Date Discharge/Departure Disposition Provider(s) Departed Physician/ Provider Office Visit -[facility] September 05, 2025 1:30pm September 05, 2025 2:06pm Discharged to home care or self care (routine discharge) Kristina Lopez MD Non-patient / Non-visit -[facility] ctober 2024 2:33pm Krist[facility] Lopez , [facility] Lrozkcpy-Lpo-Gzbzfgoo TestingNov2024 3:44pmNov2024 3:45pmDischarged to home care or self care (routine discharge)Li Warren , Recent Diagnosis Onset Date Admit Date Colon cancer screening Unknown September 052024 1:30pm Hypothyroid Unknown September 05 1:30pm Peripheral neuropathy Unknown August 1:30pm Rib pain on right side Unknown September 052024 1:30pm Assessments Diagnosis Onset Date Resolution Status Admit Date Colon cancer screening acuteOctober 2024 1:30pmHypothyroidacuteOctober 2024 1:30pmPeripheral neuropathyacuteOctober 2024 1:30pmRib pain on right sideacuteOctober 2024 1:30pm Plan of Treatment Author Kristina Lopez [facility] HospitalAuthoredOctober 2024 6:38pmDiscussed options of treatment plan including CXR/ribs, chiropractor, or PT. Gave names and options of chiropractors. No personal history of genetic family history. Agrees to c-scope. Due for labs. continue armour thyroid. Agrees to labs - discussed potassium, thyroid, or dehydration could contribute to her symptoms. Future Tests Future scheduled test information is unavailable Pending Tests Test Name Ordered Date Scheduled Date XR ribs RT min 3V w CXR1V* September 05, 2025 12: 48pm Future Visits Future appointment information is unavailable Future Procedures Procedure Name Ordered Date Scheduled Date Basic Metabolic Panel September 05, 2025 12:59pm Thyroid Stim Hormone w/RflxOctober 2024 12:59pmVit. B12/Folate Profile September 05, 2025 12:59pm Future Medications Future medication information is unavailable Patient Instructions Patient instructions are unavailable
[2025-10-21 16:19] VITALS: BP 156/101; PULSE 90; TEMP 36.8; O2SAT 98; BMI 34.5
--- NOTE | 2025-10-21 16:37 | ED.ABDPAIN1 ---
HPI - Abdominal Pain General Chief Complaint: Abdominal Pain Stated Complaint: LOWER ABDOMINAL PAIN, RECENT SURGERY Time Seen by Provider: 10/21/25 16:25 Source: patient Mode of arrival: walk-in Limitations: no limitations History of Present Illness HPI narrative: 55 year old female presents to the ED for low abd pain/pressure. States it feels like a pinching sensation. Onset was within the past 1-2 days. Reports dysuria, urinary frequency/urgency. She has a prolapsed uterus and is scheduled for a hysterectomy next week. Denies fever, chills, N/V/D, hematuria. Related Data Previous Rx's ?Medication ?Instructions ?Recorded polyethylene glycol 3350 17 17 g PO DAILY #238 grams 10/21/25 gram/dose oral powder (Miralax) Allergies Allergy/AdvReac Type Severity Reaction Status Date / Time No Known Drug Allergies Allergy Verified 10/21/25 16:22 Review of Systems ROS Constitutional Denies: fever or chills Gastrointestinal Reports: abdominal pain; Denies: nausea, vomiting or diarrhea Genitourinary Reports: painful urination, urinary frequency, urinary urgency and pelvic pain; Denies: blood in urine Musculoskeletal Denies: back pain Integumentary/Breast Denies: rash PFSH PFSH Social History Little interest or pleasure in doing things: not at all Feeling down, depressed, or hopeless: not at all Exam Constitutional Vital Signs, click to edit/add: Last Vital Signs Temp 98.3 F 10/21/25 16:19 Pulse 82 10/21/25 18:18 Resp 16 10/21/25 18:18 BP 147/82 H 10/21/25 18:18 Pulse Ox 98 10/21/25 18:18 O2 Del Method Room Air 10/21/25 16:19 Common normals: no apparent distress and oriented x3 General appearance: cooperative HENAK Common normals: moist oral mucous membranes Eye Common normals: conjunctivae normal and no scleral icterus Neck & C-Spine Common normals: supple GI Common normals: Normal to inspection, nondistended, normoactive bowel sounds present and soft to palpation Palpation: tender Details: suprapubic Neuro Common normals: oriented x3 and moves all extremities Sensorium/orientation: awake and alert Speech: speech normal Course Vital Signs Vital signs: Vital Signs Temperature 98.3 F 10/21/25 16:19 Pulse Rate 90 10/21/25 16:19 Respiratory Rate 18 10/21/25 16:19 Blood Pressure 156/101 H 10/21/25 16:19 Pulse Oximetry 98 10/21/25 16:19 Oxygen Delivery Method Room Air 10/21/25 16:19 Temperature 98.3 F 10/21/25 16:19 Pulse Rate 82 10/21/25 18:18 Respiratory Rate 16 10/21/25 18:18 Blood Pressure 147/82 H 10/21/25 18:18 Pulse Oximetry 98 10/21/25 18:18 Oxygen Delivery Method Room Air 10/21/25 16:19 MDM - Abdominal Pain MDM Narrative Medical decision making narrative: The patient was discussed with the ED attending. Urine culture was pending. CT scan showed retained stool throughout the colon. Findings were discussed with the patient. She is scheduled for a hysterectomy next week. Follow up with pcp and [employer] for a recheck, further evaluation and treatment. Medical Records Attestation: I reviewed the patient's medical records. Lab Data Attestation: I reviewed the patient's lab results. Labs: Lab Results 10/21/25 Range/Units 16:34 Urine Color Yellow (YELLOW) Urine Clarity Clear (CLEAR) Urine pH 5.5 (5.0-9.0) Ur Specific [place] >=1.030 A (1.005-1.025) Urine Protein Negative (NEG/TRACE) mg/dL Urine Glucose (UA) Negative (NEGATIVE) mg/dL Urine Ketones Trace A (NEGATIVE) mg/dL Urine Occult Blood Small A (NEGATIVE) Urine Nitrite Negative (NEGATIVE) Urine Bilirubin Negative (NEGATIVE) Urine Urobilinogen 0.2 (0.2-1.0) EU/dL Ur Leukocyte Esterase Negative (NEGATIVE) Urine RBC 2-5 A (0-2) #/HPF Urine WBC None seen (NONE SEEN) #/HPF Ur Squamous Epith Cells Few A (NONE/RARE) #/LPF Urine Crystals None seen (None Seen) #/HPF Urine Bacteria Small A (NONE SEEN) #/HPF Urine Casts None seen (NONE SEEN) #/LPF Urine Mucus Small A (NONE SEEN) Ur Culture Indicated? [place] [place] scan - abdomen: Attestation: I have reviewed the pertinent imaging results. Radiologist's impression: ITS Impressions Abdomen/Pelvis CT 10/21/25 16:48 IMPRESSION: Negative acute inflammatory process or bowel obstruction. Right-sided renal calculi, nonobstructive Mild endometrial thickening versus endometrial fluid. Correlate with menstrual/menopause status. Impression dictated by: Jermaine Buchanan M.D. 10/21/2025 5:58 PM Dictation Location[facility] Electronically authenticated by: [id number] Y Date: 10/21/2025 17:58 Discharge Plan Discharge Chief Complaint: Abdominal Pain Clinical Impression: Abdominal pain, Constipation Patient Disposition: Home, Self-Care Time of Disposition Decision: 18:11 Condition: Good Mode of Transportation: Private Vehicle Prescriptions / Home Meds: New polyethylene glycol 3350 [Miralax] 17 gram/dose powder 17 g PO DAILY Qty: 238 0RF Print Language: Thai Instructions: Constipation (ED), Abdominal Pain (ED) Additional Instructions: Return to the ED for worsening symptoms. Referrals: Kristina Lopez MD [Primary Care Provider, Family Practice] - 1 week Discharge Date/Time: 10/21/25 18:19
[2025-10-21 16:44] LABS: Glucose Urine UA NEGATIVE (NEGATIVE)
--- NOTE | 2025-10-21 16:48 | CT_ITS ---
The [address] [address] Patient Name: OXANA ARCHIBALD MRN: [facility]:[id number] date: 1970 Sex: F Assigned Patient Location: ER Current Patient Location: Accession/Order Number: [id number] Exam Date: 10/21/2025 17:13 Report Date: 10/21/2025 17:58 At the request of: MARTIN TELLEZ Procedure: CT abdomen pelvis wo con CT ABDOMEN AND PELVIS WITHOUT INTRAVENOUS CONTRAST: CLINICAL HISTORY: pain COMPARISON: 09/30/2021 TECHNIQUE: Spiral images were obtained through the abdomen and pelvis without intravenous contrast. This CT exam was performed using one or more following dose reduction techniques: Automated exposure control, adjustment of the mA and/or kV according to patient size, or use of iterative reconstruction technique. FINDINGS: Lung Bases: [Hypoventilatory changes.] Organs:Fatty liver. Likely fatty sparing left hepatic lobe posteriorly. This appears similar.. Otherwise the adrenals, kidneys, spleen, pancreas and gallbladder unremarkable. Evidence of right-sided renal calculus this measures 4 mm in size. No hydronephrosis. No definite ureterolithiasis.[ GI: Mild retained stool throughout the colon. No bowel obstruction. Appendix unremarkable.[ Pelvis:[Bladder collapsed. Endometrial fluid versus endometrial thickening noted, correlate with menstrual status... No adnexal mass.] Peritoneum/Retroperitoneum:No free air or free fluid. No adenopathy. Aorta normal caliber.[ Abd wall/Bones:Multilevel degenerative changes. No suspicious osseous lesion.[ CT/CT abdomen pelvis wo con IMPRESSION: Negative acute inflammatory process or bowel obstruction. Right-sided renal calculi, nonobstructive Mild endometrial thickening versus endometrial fluid. Correlate with menstrual/menopause status. Impression dictated by: Jermaine Buchanan M.D. 10/21/2025 5:58 PM Dictation Location: [place] [address] Electronically authenticated by: [id number] Y Date: 10/21/2025 17:58
--- OUTSIDE RECORDS SUMMARY | 2025-10-21 16:51 | XMS_ITS | CCD ---
Author Organization [facility] Care Team Providers Care Laboratory Animal Facility Supervisor Name Role Phone DR BETSY GARCIA Consulting [...] Current Medications MedicationDrug Class(es)DatesSig (Normalized)Sig (Original)Thyroid (Pork) ([place] Thyroid) 90 mg tablet (5 sources)Start: 36-91-4522tnzi 1 tablet by mouth once dailyThyroid (Pork) ([place] Thyroid) 90 mg tablet Active 90 MG PO Daily April 07, 2025 1:20pmStart: 03-19-2024 End: 03-66-1230awds 1 tablet by mouth once dailyThyroid (Pork) ([place] Thyroid) 90 mg tablet Discontinued 180 MG PO Daily March 19, 2024 12:00am March 19, 2024 11:19amthyroid (shelter) 120 mg oral tablet (20 sources)Start: 69-26-5860dpvv 1 tablet by mouth once dailythyroid ([place]) 120 MG tablet Take 120 mg by mouth Daily 07/04/2025 ActiveStart: 04-07-2025 End: 74-78-1172tejp 1 tablet by mouth once dailyThyroid (Pork) ([place] Thyroid) 90 mg tablet Discontinued 90 MG PO Daily April 07, 2025 1:20pm July 03, 2025 1:00pmStart: 03-19-2024 End: 06-92-4617hbqd 1 tablet by mouth once dailyThyroid (Pork) ([place] Thyroid) 90 mg tablet Discontinued 0 .ROUTE .COMPLEX 90 February 20, 2025 8:13am April 07, 2025 1:21pm TAKE 1 TABLET BY MOUTH EVERY DAYStart: 03-19-2024 End: 75-09-3717umbv 1 tablet by mouth once dailyThyroid (Pork) ([place] Thyroid) 90 mg tablet Discontinued 180 MG PO Daily March 19, 2024 12:00am March 19, 2024 11:19am Completed/Discontinued Medications MedicationDrug Class(es)DatesSig (Normalized)Sig (Original)[id number] 200 actuat albuterol 0.09 mg/actuat metered dose inhaler (3 sources)beta2-Adrenergic AgonistStart: 04-07-2025 End: 73-70-9866Zqpypdbsd Sulfate 90 mcg/actuation HFA aerosol inhaler Discontinued 2 INH INHALATION EVERY 4-6 HOURS as needed for shortness of breath or wheezing 6.7 April 07, 2025 12:00am September 05, 2025 1:37pmStart: 08-09-2024 End: 01-87-8061wrtv 1 puff(s) by inhalation every four to six hours as needed for wheezingAlbuterol Sulfate 90 mcg/actuation HFA aerosol inhaler Discontinued 2 PUFF INHALATION EVERY 4-6 HOURS as needed for shortness of breath or wheezing 6.7 August 09, 2024 12:00am February 14, 2025 1:19pmStart: 52-92-9552sthb 1 puff(s) by inhalation every four to six hoursAlbuterol Sulfate Active 2 PUFF INHALATION EVERY 4-6 HOURS 6.7 August 09, 2024 12:00amAlbuterol Sulfate 90 mcg/actuation HFA aerosol inhaler (2 sources)Start: 08-09-2024 End: 26-65-0236jdiv 1 puff(s) by inhalation every four to six hours as needed for wheezingAlbuterol Sulfate 90 mcg/actuation HFA aerosol inhaler Discontinued 2 PUFF INHALATION EVERY 4-6 HOURS as needed for shortness of breath or wheezing 6.7 August 09, 2024 12:00February 14, 2025 1:19pmazithromycin 250 mg oral tablet (5 sources)Macrolide AntimicrobialStart: 04-07-2025 End: 86-24-1227Gsllgkikyblk 250 mg tablet Discontinued 0 PO .COMPLEX April 07, 2025 12:00am September 05, 2025 1:37pm For 250 mg dose pack: take 500 mg today (day 1), then 250 mg for 4 days (days 2-5) POStart: 08-09-2024 End: 54-76-7703Kqbpebwnwyno 250 mg tablet Discontinued 0 PO daily 05 02August 09, 2024 12:00am February 14, 2025 1:18pm Take 2 on day 1 and then take 1 for the next 4 days (days 2-5)Start: 98-75-8894Laxkxhhyfmjt Active 0 PO daily 05 02August 09, 2024 12:00am Take 2 on day 1 and then take 1 forthe next 4 days (days 2-5)benzonatate 100 mg oral capsule (5 sources)Non-narcotic AntitussiveStart: 08-03-2024 End: 94-08-3547auoo 1 capsule by mouth three times dailyBenzonatate 100 mg capsule Discontinued 100 MG PO Three times daily 17 06August 03, 2024 12:00am February 14, 2025 1:18pmmethylPREDNISolone 4 mg oral tablet (5 sources)CorticosteroidStart: 04-07-2025 End: 13-47-4924unkt 1 tablet by mouth onceMethylprednisolone (Medrol ([place])) 4 mg tablets,dose pack Discontinued 0 PO per package directions April 07, 2025 12:00am September 05, 2025 1:37pm PO PER PKG DIRStart: 08-09-2024 End: 39-92-8117tmjm 1 tablet by mouth onceMethylprednisolone (Medrol (Hill)) 4 mg tablets,dose pack Discontinued 0 PO per package directions August 09, 2024 12:00am February 14, 2025 1:18pm PO PER PKG DIR Problems Problem ClassificationProblemDateDocumented DateEpisodic/ChronicChronic obstructive pulmonary disease and bronchiectasis (3 sources)Bronchitis; Translations: [Bronchitis, not specified as acute or chronic]49-45-7407XdxeejpdKrswykemwnruw symptoms and ill-defined conditions (1 source)Frequency of micturition; Translations: [FREQUENCY OF MICTURITION] Onset: 59-58-0021VqblrakpAzwwsoiwgz disorders (2 sources)Perimenopausal state; Translations: [Menopausal and female climacteric states]80-48-9459KefzztaBgpnqwioxordd gastroenteritis (3 sources)Gastroenteritis; Translations: [Noninfective gastroenteritis and colitis, unspecified]98-59-6192OewzzqlyDfjagwjrrjw chest pain (2 sources)Rib pain; Translations: [Other chest pain]67-64-1415Nkmhxshn Nutritional deficiencies (4 sources)Vitamin D deficiency, unspecified; Translations: [VITAMIN D DEFICIENCY UNSPECIFIED]Onset: 95-55-7478JewdxvyHqywt connective tissue disease (1 source)Pain in right foot; Translations: [PAIN IN RIGHT FOOT]Onset: 33-70-5101RmickzdhRfvre female genital disorders (4 sources)Enlarged uterus; Translations: [Hypertrophy of uterus]08-13-2025 EpisodicOther female genital disorders (2 sources)Female genital organ symptoms; Translations: [Pelvic pressure in female]61-65-7325XelfsvysSlued lower respiratory disease (1 source)Respiratory tract infection; Translations: [Other specified respiratory disorders]35-78-6959SoqslffmXhysp nervous system disorders (2 sources)Peripheral nerve disease ; Translations: [Polyneuropathy, unspecified]58-47-5494UamdixrConzl nervous system disorders (1 source)Paresthesia of skin; Translations: [PARESTHESIA OF SKIN]Onset: 72-21-9678HhykvazyRrgqw screening for suspected conditions (not mental disorders or infectious disease) (9 sources)Patient encounter status; Translations: [Encounter for screening mammogram for malignant neoplasm of breast]16-62-2168ZcvtdaeyAkixj upper respiratory infections (1 source)Acute upper respiratory infection, unspecified; Translations: [Acute upper respiratory infections of unspecified site]76-11-9088ChedhcbgQqgkzcna of female genital organs (4 sources)Uterine prolapse; Translations: [Uterovaginal prolapse, unspecified] 62-90-5626KxenfdnGxlyqub disorders (8 sources)Hypothyroidism; Translations: [Hypothyroidism, unspecified]04-24-2024 ChronicUnclassified (2 sources)Patient encounter status; Translations: [Z12.11 - Encounter for screening for malignant neoplasm ofcolon] Results Test NameValueInterpretationReference RangeFacilityLaboratory - Chemistry and Chemistry - challengeOrdered By: Kristina Lopez on 13-05-2958Debk T4 [Mass/Vol] 0.92 ng/dL0.76-1.46[facility] Qn12.512 m[IU]/LHigh 0.358-3.740[facility] FoundationLaboratory - Microbiology and Antimicrobial susceptibilityon 10-35-5011PTVN-CoV-2 (COVID-19) RNA RADHA+probe Ql (Unsp spec)NegativeCleveland Clinic FoundationNo Panel Informationon 41-95-7363KXU Influenza A (PCR)NegativeCleveland Clinic FoundationPO Influenza B (PCR)NegativeCleveland Clinic FoundationLaboratory - Chemistry and Chemistry - challengeon 48-83-9202Ecbk T4 [Mass/Vol]0.97 ng/dL0.76-1.46 [facility] Qn4.869 m[IU]/LHigh0.358-3.740[facility] FoundationVIT D 1 25 DIHYDROXYon 27-70-6213Zqhqcntptd(1,25 di-[place] Vit D)47.5 pg/xIDwgzov04.8-81.5The [facility] HospitalComment on above:Performed By: #### [id number] #### [facility] [address] [place], [place] [address] Dr. Adriana HaneyXR LSPINE 2_3 VIEWSon 73-95-0491VQ LSPINE 2_3 VIEWSEXAMINATION: XR LSPINE 2_3 VIEWS [...] Electronically authenticated by: BETSY GARCIA Date: 2022-10-07 08:14NormalThMag[facility]uder [facility] AUTO DIFFon 47-31-2895NKUA #0.0 103/ulNormal0.0-0.1The [facility] HospitalComment on above:Performed By: #### CBC #### [facility] [address] [place] [address] Dr. Adriana HaneyBasophils/100 WBC (Bld)0.5 %Normal0.2-2.0The [facility] Comment on above:Performed By: #### CBC #### [facility] [address] [place] [address] Dr. Adriana Olivia #0.1 103/ulNormal0.0-0.7The [facility] HospitalComment on above: Performed By: #### CBC #### [facility] [address] [place] [address] Dr. Adriana Pittosinophils/100 WBC (Bld)1.2 %Normal0.9-7.0The [facility] Comment on above:Performed By: #### CBC #### [facility] [address] [place] [address] Dr. Adriana Pittrythrocyte distribution width (RBC) [Ratio]11.9 %Alwzgc83.0-15.0 The [facility] HospitalComment on above:Performed By: #### CBC #### [facility] [address] [place] [address] Dr. Adriana HaneyHematocrit (Bld) [Volume fraction]39.3 %Wjpkyg66.0-48.0The [facility] HospitalComment on above:Performed By: #### CBC #### [facility] [address] [place] [address] Dr. Adriana HaneyHemoglobin (Bld) [Mass/Vol]13.5 g/wMPowwyk22.0-16.0The [facility] HospitalComment on above:Performed By: #### CBC #### [facility] [address] [place] [address] Dr. Adriana Alston #0.03 10e3/ulNormal0.00-0.03The [facility] HospitalComment on above:Performed By: #### CBC #### [facility] [address] [place] [address] Dr. Adriana Alston %0.4 %Normal0.0-0.5The [facility] HospitalComment on above: Performed By: #### CBC #### [facility] [address] [place] [address] Dr. Adriana Arnett #2.6 103/ulNormal1.2-3.8The [facility] HospitalComment on above:Performed By: #### CBC #### [facility] [address] [place] [address] Dr. Adriana Springerhocytes/100 WBC (Bld)33.0 %Nznjfo11.5-60.0The [facility] HospitalComment on above:Performed By: #### CBC #### [facility] [address] [place] [address] Dr. Adriana HealyUAL DIFF REQNONormalThe [facility] HospitalComment on above: Performed By: #### CBC #### [facility] [address] [place] [address] Dr. Adriana Valdivia (RBC) [Entitic mass]31.1 bvBopcwi57.7-34.0The [facility] HospitalComment on above:Performed By: #### CBC #### [facility] [address] [place] [address] Dr. Adriana Moffett (RBC) [Mass/Vol]34.4 g/nARcmpio65.9-35.2The [facility] HospitalComment on above:Performed By: #### CBC #### [facility] [address] [place] [address] Dr. Adriana Moffett (RBC) [Entitic vol]90.6 bYNdcyow12.0-99.0The [facility] HospitalComment on above:Performed By: #### CBC #### [facility] [address] [place] [address] Dr. Adriana Parker #0.5 103/ulNormal0.3-0.8The [facility] HospitalComment on above:Performed By: #### CBC #### [facility] [address] [place] [address] Dr. Adriana Gillocytes/100 WBC (Bld)6.2 %Normal1.7-12.0The [facility] Comment on above:Performed By: #### CBC #### [facility] [address] [place] [address] Dr. Adriana Barahona #4.6 103/ulNormal1.4-6.5The [facility] HospitalComment on above:Performed By: #### CBC #### [facility] [address] [place] [address] Dr. Adriana Giordanoutrophils/100 WBC (Bld)58.7 %Ijnujc74.0-75.0The [facility] HospitalComment on above:Performed By: #### CBC #### [facility] [address] [place] [address] Dr. Adriana Velasco mean volume (Bld) [Entitic vol]9.4 fLCritically low 9.5-13.5The [facility] HospitalComment on above:Performed By: #### CBC #### [facility] [address] [place] [address] Dr. Adriana SamuelsT309 103/qpZhrwih085-471Wir [facility] HospitalComment on above: Performed By: #### CBC #### [facility] [address] [place] [address] Dr. Adriana ScottC4.34 106/ulNormal4.20-5.40The [facility] HospitalComment on above:Performed By: #### CBC #### [facility] [address] [place] [address] Dr. Adriana HaneyWBC7.8 103/ulNormal4.0-11.0The [facility] HospitalComment on above: Performed By: #### CBC #### [facility] [address] [place] [address] Dr. Adriana Villalpando T4on 41-09-7294Jduc T4 [Mass/Vol]0.83 ng/dLNormal0.76-1.46 The [facility] HospitalComment on above:Performed By: #### FT4 #### [facility] [address] [address] [address] Adriana HaneyPROF CHEM 8 (BAS METB)on 20-37-3403Hmgfw gap [Moles/Vol]10.5 mmol/LNormalThe [facility] HospitalComment on above:Performed By: #### TSH, BMP #### [facility] [address] [address] [address] Adriana HaneyCalcium [Mass/Vol]8.9 mg/dLNormal8.5-10.1[facility] Comment on above:Performed By: #### TSH, BMP #### [facility] [address] [address] [address] Adriana HaneyChloride [Moles/Vol]104 mmol/EHesuyx40-134GswUniversity Hospitals Health System Comment on above:Performed By: #### TSH, BMP #### [facility] [address] [address] [address] Adriana HaneyCO2 [Moles/Vol]25.7 mmol/WEtnrkr48.0-32.0[facility] Comment on above:Performed By: #### TSH, BMP #### [facility] [address] [address] [address] Adriana HaneyCreatinine [Mass/Vol]0.85 mg/dLNormal0.55-1.02[facility] Health SystemComment on above:Performed By: #### TSH, BMP #### [facility] [address] [address] [address] Adriana PittGFR-AF TUVALUAN>60Normal>=60The [facility] HospitalComment on above:Performed By: #### TSH, BMP #### [facility] [address] [address] [address] Adriana PittGFR-NON AF TUVALUAN>60Normal>=60The [facility] HospitalComment on above:Performed By: #### TSH, BMP #### [facility] [address] [address] [address] Adriana HaneyGlucose [Mass/Vol]103 mg/sQNfjbta81-599RacUniversity Hospitals Health System Comment on above:Performed By: #### TSH, BMP #### [facility] [address] [place] [address] Dr. Adriana HaneyPotassium [Moles/Vol]4.2 mmol/LNormal3.5-5.1[facility] Comment on above:Performed By: #### TSH, BMP #### [facility] [address] [place] [address] Dr. Adriana HaneySodium [Moles/Vol]136 mmol/FNplodh726-315EjeUniversity Hospitals Health System Comment on above:Performed By: #### TSH, BMP #### [facility] [address] [place] [address] Dr. Adriana HaneyUrea nitrogen [Mass/Vol]14.0 mg/dLNormal7.0-18.0[facility]als Health SystemComment on above:Performed By: #### TSH, BMP #### [facility] [address] [place] [address] Dr. Adriana Kim nitrogen/Creatinine [Mass ratio]16.5 mg/mgNormalThe [facility] HospitalComment on above:Performed By: #### TSH, BMP #### [facility] [address] [place] [address] Dr. Adriana Park 31-79-5579GXC3.716 uIU/mLNormal0.358-3.740[facility] Hospitals Health SystemComment on above:Performed By: #### TSH, BMP #### [facility] [address] [place] [address] Dr. Adriana HaneyLab - Toxicology Resultson 58-79-7441Ihp - Toxicology Results [id number]#1.00OTMartins Ferry Hospital [facility]-19 Lab Corpon 35-03-8275MXWF-CoV-2 (COVID-19) RNA RADHA+probe Ql (Unsp spec) Not detectedNormalNot DetectedCleveland Clinic FoundationComment on above: Order Comment: CALL ONLY IF POS TO [phone] Healthcare Worker?: YResmoncho Comment: This nucleic acid amplification test was developed and its performance characteristics determined by [employer]. Nucleic acid amplification tests include RT- PCR [...] detected) result in this assay. PERFORMED BY: [address] [place] [address] PATHOLOGIST FULFILLMENT ASSOCIATE NOEL VILLAREAL M.D.Performed By: #### CORONAVIRUS #### [facility] ,COVID-19 Lab Corpon 06-65-9962IWIY-CoV-2 (COVID-19) RNA RADHA+probe Ql (Unsp spec)Not detectedNormalNot DetectedCleveland Clinic FoundationComment on above:Order Comment: CALL ONLY IF POS TO [phone] Healthcare Worker?: YResmoncho Comment: This nucleic acid amplification test was developed and its performance characteristics determined by [employer]. Nucleic acid amplification tests include RT- PCR [...] detected) result in this assay. PERFORMED BY: [address] [place] [address] PATHOLOGIST FULFILLMENT ASSOCIATE NOEL VILLAREAL M.D.Performed By: #### CORONAVIRUS #### [facility] ,COVID-19 Lab Corpon 40-35-0185YDGQ-CoV-2 (COVID-19) RNA RADHA+probe Ql (Unsp spec)Not detectedNormalNot DetectedCleveland Clinic FoundationComment on above:Order Comment: CALL ONLY IF POS TO [phone] Healthcare Worker?: YResult Comment: This nucleic acid amplification test was developed and its performance characteristics determined by [employer]. Nucleic acid amplification tests include RT- PCR [...] detected) result in this assay. PERFORMED BY: [place] [address] [place] [address] PATHOLOGIST FULFILLMENT ASSOCIATE NOEL VILLAREAL M.D.Performed By: #### CORONAVIRUS #### [facility] ,COVID-19 Lab Corpon 95-67-3072KCTK-CoV-2 (COVID-19) RNA RADHA+probe Ql (Unsp spec)Not detectedNormalNot DetectedCleveland Clinic FoundationComment on above:Order Comment: CALL ONLY IF POS TO [phone] Healthcare Worker?: YResult Comment: This nucleic acid amplification test was developed and its performance characteristics determined by [employer]. Nucleic acid amplification tests include RT- PCR [...] detected) result in this assay. PERFORMED BY: [facility] [address] [place] [address] PATHOLOGIST FULFILLMENT ASSOCIATE NOEL VILLAREAL M.D.Performed By: #### CORONAVIRUS #### [facility] ,COVID-19 Lab Corpon 12-62-9307DYJL-CoV-2 (COVID-19) RNA RADHA+probe Ql (Unsp spec)Not detectedNormalNot DetectedCleveland Clinic FoundationComment on above:Order Comment: CALL ONLY IF POS TO [phone] Healthcare Worker?: YResult Comment: This nucleic acid amplification test was developed and its performance characteristics determined by [employer]. Nucleic acid amplification tests include RT- PCR [...] detected) result in this assay. PERFORMED BY: [address] [place] [address] PATHOLOGIST FULFILLMENT ASSOCIATE NOEL VILLAREAL M.D.Performed By: #### CORONAVIRUS #### [facility] ,COVID-19 Lab Corpon 97-12-8979HKBD-CoV-2 (COVID-19) RNA RADHA+probe Ql (Unsp spec)Not detectedNormalNot DetectedCleveland Clinic FoundationComment on above:Order Comment: CALL ONLY IF POS TO [phone] Healthcare Worker?: Yusuf Comment: This nucleic acid amplification test was developed and its performance characteristics determined by [employer]. Nucleic acid amplification tests include RT- PCR [...] detected) result in this assay. PERFORMED BY: [facility] [address] [place] [address] PATHOLOGIST FULFILLMENT ASSOCIATE NOEL VILLAREAL M.D.Performed By: #### CORONAVIRUS #### [facility] ,COVID-19 Lab Corpon 05-85-6782YSKY-CoV-2 (COVID-19) RNA RADHA+probe Ql (Unsp spec)Not detectedNormalNot DetectedCleveland Clinic FoundationComment on above:Order Comment: CALL ONLY IF POS TO [phone] Healthcare Worker?: ISISesult Comment: This nucleic acid amplification test was developed and its performance characteristics determined by [employer]. Nucleic acid amplification tests include RT- PCR [...] detected) result in this assay. PERFORMED BY: [facility] [address] [place] [address] PATHOLOGIST FULFILLMENT ASSOCIATE NOEL VILLAREAL M.D.Performed By: #### CORONAVIRUS #### [facility] ,COVID-19 Lab Corpon 91-45-2492QLBC-CoV-2 (COVID-19) RNA RADHA+probe Ql (Unsp spec)Not detectedNormalNot DetectedCleveland Clinic FoundationComment on above:Order Comment: CALL ONLY IF POS TO [phone] Healthcare Worker?: YResult Comment: This nucleic acid amplification test was developed and its performance characteristics determined by [employer]. Nucleic acid amplification tests include RT- PCR [...] detected) result in this assay. PERFORMED BY: [place] [address] [place] [address] PATHOLOGIST FULFILLMENT ASSOCIATE NOEL VILLAREAL M.D.Performed By: #### CORONAVIRUS #### [facility] ,COVID-19 Lab Corpon 39-00-9488JTWL-CoV-2 (COVID-19) RNA RADHA+probe Ql (Unsp spec)Not detectedNormalNot DetectedCleveland Clinic FoundationComment on above:Order Comment: CALL ONLY IF POS TO [phone] Healthcare Worker?: YResult Comment: This nucleic acid amplification test was developed and its performance characteristics determined by [employer]. Nucleic acid amplification tests include RT- PCR [...] detected) result in this assay. PERFORMED BY: [address] [place] [address] PATHOLOGIST FULFILLMENT ASSOCIATE NOEL VILLAREAL M.D.Performed By: #### CORONAVIRUS #### [facility] ,COVID-19 Lab Corpon 03-85-7930QYNN-CoV-2 (COVID-19) RNA RADHA+probe Ql (Unsp spec)Not detectedNormalNot DetectedCleveland Clinic FoundationComment on above:Order Comment: CALL ONLY IF POS TO [phone] Healthcare Worker?: YResult Comment: This nucleic acid amplification test was developed and its performance characteristics determined by [employer]. Nucleic acid amplification tests include RT- PCR [...] detected) result in this assay. PERFORMED BY: [facility] [address] [place] [address] PATHOLOGIST FULFILLMENT ASSOCIATE NOEL VILLAREAL M.D.Performed By: #### CORONAVIRUS #### [facility] ,COVID-19 Lab Corpon 21-34-1999ZXTF-CoV-2 (COVID-19) RNA RADHA+probe Ql (Unsp spec)Not detectedNormalNot DetectedCleveland Clinic FoundationComment on above:Order Comment: CALL ONLY IF POS TO [phone] Healthcare Worker?: ISISesmoncho Comment: This nucleic acid amplification test was developed and its performance characteristics determined by [employer]. Nucleic acid amplification tests include RT- PCR [...] detected) result in this assay. PERFORMED BY: [facility] [address] [place] [address] PATHOLOGIST FULFILLMENT ASSOCIATE NOEL VILLAREAL M.D.Performed By: #### CORONAVIRUS #### [facility] ,COVID-19 Lab Corpon 33-67-7967HOUD-CoV-2 (COVID-19) RNA RADHA+probe Ql (Unsp spec)Not detectedNormalNot DetectedCleveland Clinic FoundationComment on above:Order Comment: CALL ONLY IF POS TO [phone] Healthcare Worker?: Yusuf Comment: This nucleic acid amplification test was developed and its performance characteristics determined by [employer]. Nucleic acid amplification tests include RT- PCR [...] detected) result in this assay. PERFORMED BY: [address] [address] PATHOLOGIST FULFILLMENT ASSOCIATE NOEL VILLAREAL M.D.Performed By: #### CORONAVIRUS #### [facility] ,COVID-19 Lab Corpon [id number]-CoV-2 (COVID-19) RNA RADHA+probe Ql (Unsp spec)Not detectedNormalNot DetectedCleveland Clinic FoundationComment on above:Order Comment: CALL ONLY IF POS TO [phone] Healthcare Worker?: YResmoncho Comment: This nucleic acid amplification test was developed and its performance characteristics determined by [employer]. Nucleic acid amplification tests include RT- PCR [...] detected) result in this assay. PERFORMED BY: [facility] [address] [address] PATHOLOGIST FULFILLMENT ASSOCIATE NOEL VILLAREAL M.D.Performed By: #### CORONAVIRUS #### [facility] ,COVID-19 Lab Corpon [id number]-CoV-2 (COVID-19) RNA RADHA+probe Ql (Unsp spec)Not detectedNormalNot DetectedCleveland Clinic FoundationComment on above:Order Comment: CALL ONLY IF POS TO [phone] Healthcare Worker?: YResult Comment: This nucleic acid amplification test was developed and its performance characteristics determined by [employer]. Nucleic acid amplification tests include RT- PCR [...] detected) result in this assay. PERFORMED BY: [facility] [address] [place] [address] PATHOLOGIST FULFILLMENT ASSOCIATE NOEL VILLAREAL M.D.Performed By: #### CORONAVIRUS #### [facility] ,COVID-19 Lab Corpon [id number]-CoV-2 (COVID-19) RNA RADHA+probe Ql (Unsp spec)Not detectedNormalNot DetectedCleveland Clinic FoundationComment on above:Order Comment: CALL ONLY IF POS TO [phone] Healthcare Worker?: YResult Comment: This nucleic acid amplification test was developed and its performance characteristics determined by [employer]. Nucleic acid amplification tests include RT- PCR [...] detected) result in this assay. PERFORMED BY: [facility] [address] [place] [address] PATHOLOGIST FULFILLMENT ASSOCIATE NOEL VILLAREAL M.D.Performed By: #### CORONAVIRUS #### [facility] ,COVID-19 Lab Corpon [id number]-CoV-2 (COVID-19) RNA RADHA+probe Ql (Unsp spec)Not detectedNormalNot DetectedCleveland Clinic FoundationComment on above:Order Comment: CALL ONLY IF POS TO [phone] Healthcare Worker?: YResult Comment: This nucleic acid amplification test was developed and its performance characteristics determined by [employer]. Nucleic acid amplification tests include RT- PCR [...] detected) result in this assay. PERFORMED BY: [address] [place] [address] PATHOLOGIST FULFILLMENT ASSOCIATE NOEL VILLAREAL M.D.Performed By: #### CORONAVIRUS #### [facility] ,COVID-19 Lab Corpon [id number]-CoV-2 (COVID-19) RNA RADHA+probe Ql (Unsp spec)Not detectedNormalNot DetectedCleveland Clinic FoundationComment on above:Order Comment: CALL ONLY IF POS TO [phone] Healthcare Worker?: YResult Comment: This nucleic acid amplification test was developed and its performance characteristics determined by [employer]. Nucleic acid amplification tests include RT- PCR [...] detected) result in this assay. PERFORMED BY: [facility] [address] [place] [address] PATHOLOGIST FULFILLMENT ASSOCIATE NOEL VILLAREAL M.D.Performed By: #### CORONAVIRUS #### [facility] ,COVID-19 Lab Corpon [id number]-CoV-2 (COVID-19) RNA RADHA+probe Ql (Unsp spec)Not detectedNormalNot DetectedCleveland Clinic FoundationComment on above:Order Comment: CALL ONLY IF POS TO [phone] Healthcare Worker?: Yusuf Comment: This nucleic acid amplification test was developed and its performance characteristics determined by [employer]. Nucleic acid amplification tests include RT- PCR [...] detected) result in this assay. PERFORMED BY: [facility] [address] [place] [address] PATHOLOGIST FULFILLMENT ASSOCIATE NOEL VILLAREAL M.D.Performed By: #### CORONAVIRUS #### [facility] ,COVID-19 Lab Corpon [id number]-CoV-2 (COVID-19) Ab [place] QlNot detectedNormal Not DetectedCleveland Clinic FoundationComment on above:Order Comment: CALL ONLY IF POS TO [phone] Healthcare Worker?: YResult Comment: This nucleic acid amplification test was developed and its performance characteristics determined by [employer]. Nucleic acid amplification tests include RT- PCR [...] detected) result in this assay. PERFORMED BY: [address] [place] [address] PATHOLOGIST FULFILLMENT ASSOCIATE NOEL VILLAREAL M.D.Performed By: #### CORONAVIRUS #### [facility] ,COVID-19 Lab Corpon [id number]-CoV-2 (COVID-19) Ab [place] QlNot detectedNormal Not DetectedCleveland Clinic FoundationComment on above:Order Comment: CALL ONLY IF POS TO [phone] Healthcare Worker?: YResult Comment: This nucleic acid amplification test was developed and its performance characteristics determined by [employer]. Nucleic acid amplification tests include RT- PCR [...] detected) result in this assay. PERFORMED BY: [address] [place] [address] PATHOLOGIST FULFILLMENT ASSOCIATE NOEL VILLAREAL M.D.Performed By: #### CORONAVIRUS #### [facility] ,COVID-19 Lab Corpon [id number]-CoV-2 (COVID-19) Ab [place] QlNot detectedNormal Not DetectedCleveland Clinic FoundationComment on above:Order Comment: CALL ONLY IF POS TO [phone] Healthcare Worker?: ISISesult Comment: This nucleic acid amplification test was developed and its performance characteristics determined by [employer]. Nucleic acid amplification tests include RT- PCR [...] detected) result in this assay. PERFORMED BY: [place] [address] [place] [address] PATHOLOGIST FULFILLMENT ASSOCIATE NOEL VILLAREAL M.D.Performed By: #### CORONAVIRUS #### [facility] ,COVID-19 Lab Corpon [id number]-CoV-2 (COVID-19) Ab [place] QlNot detectedNormal Not DetectedCleveland Clinic FoundationComment on above:Order Comment: CALL ONLY IF POS TO [phone] Healthcare Worker?: YResult Comment: This nucleic acid amplification test was developed and its performance characteristics determined by [employer]. Nucleic acid amplification tests include RT- PCR [...] detected) result in this assay. PERFORMED BY: [facility] [address] [place] [address] PATHOLOGIST FULFILLMENT ASSOCIATE NOEL VILLAREAL M.D.Performed By: #### CORONAVIRUS #### [facility] ,COVID-19 Lab Corpon [id number]-CoV-2 (COVID-19) Ab [place] QlNot detectedNormal Not DetectedCleveland Clinic FoundationComment on above:Order Comment: CALL ONLY IF POS TO [phone] Healthcare Worker?: YResult Comment: This nucleic acid amplification test was developed and its performance characteristics determined by [employer]. Nucleic acid amplification tests include RT- PCR [...] detected) result in this assay. PERFORMED BY: [address] [place] [address] PATHOLOGIST FULFILLMENT ASSOCIATE NOEL VILLAREAL M.D.Performed By: #### CORONAVIRUS #### [facility] ,COVID-19 Lab Corpon [id number]-CoV-2 (COVID-19) Ab [place] QlNot detectedNormal Not DetectedCleveland Clinic FoundationComment on above:Order Comment: CALL ONLY IF POS TO [phone] Healthcare Worker?: YResmoncho Comment: This nucleic acid amplification test was developed and its performance characteristics determined by [employer]. Nucleic acid amplification tests include RT- PCR [...] detected) result in this assay. PERFORMED BY: [facility] [address] [place] [address] PATHOLOGIST FULFILLMENT ASSOCIATE NOEL VILLAREAL M.D.Performed By: #### CORONAVIRUS #### [facility] ,COVID-19 Lab Corpon [id number]-CoV-2 (COVID-19) Ab [place] QlNot detectedNormal Not DetectedCleveland Clinic FoundationComment on above:Order Comment: CALL ONLY IF POS TO [phone] Healthcare Worker?: YResult Comment: This nucleic acid amplification test was developed and its performance characteristics determined by [employer]. Nucleic acid amplification tests include RT- PCR [...] detected) result in this assay. PERFORMED BY: [facility] [address] [place] [address] PATHOLOGIST FULFILLMENT ASSOCIATE NOEL VILLAREAL M.D.Performed By: #### CORONAVIRUS #### [facility] ,COVID-19 Lab Corpon [id number]-CoV-2 (COVID-19) Ab [place] QlNot detectedNormal Not DetectedCleveland Clinic FoundationComment on above:Order Comment: CALL ONLY IF POS TO [phone] Healthcare Worker?: YResult Comment: This nucleic acid amplification test was developed and its performance characteristics determined by [employer]. Nucleic acid amplification tests include RT- PCR [...] detected) result in this assay. PERFORMED BY: [address] [place] [address] PATHOLOGIST FULFILLMENT ASSOCIATE NOEL VILLAREAL M.D.Performed By: #### CORONAVIRUS #### [facility] ,COVID-19 Lab Corpon [id number]-CoV-2 (COVID-19) Ab [place] QlNot detectedNormal Not DetectedCleveland Clinic FoundationComment on above:Order Comment: CALL ONLY IF POS TO [phone] Healthcare Worker?: YResult Comment: This nucleic acid amplification test was developed and its performance characteristics determined by [employer]. Nucleic acid amplification tests include RT- PCR [...] detected) result in this assay. PERFORMED BY: [facility] [address] [place] [address] PATHOLOGIST FULFILLMENT ASSOCIATE NOEL VILLAREAL M.D.Performed By: #### CORONAVIRUS #### [facility] ,COVID-19 Lab Corpon [id number]-CoV-2 (COVID-19) Ab [place] QlNot detectedNormal Not DetectedCleveland Clinic FoundationComment on above:Order Comment: CALL ONLY IF POS TO [phone] Healthcare Worker?: YResult Comment: This nucleic acid amplification test was developed and its performance characteristics determined by [employer]. Nucleic acid amplification tests include RT- PCR [...] detected) result in this assay. PERFORMED BY: [place] [address] [place] [address] PATHOLOGIST FULFILLMENT ASSOCIATE NOEL VILLAREAL M.D.Performed By: #### CORONAVIRUS #### [facility] ,COVID-19 Lab Corpon [id number]-CoV-2 (COVID-19) Ab [place] QlNot detectedNormal Not DetectedCleveland Clinic FoundationComment on above:Order Comment: CALL ONLY IF POS TO [phone] Healthcare Worker?: YResult Comment: This nucleic acid amplification test was developed and its performance characteristics determined by [employer]. Nucleic acid amplification tests include RT- PCR [...] detected) result in this assay. PERFORMED BY: [facility] [address] [place] [address] PATHOLOGIST FULFILLMENT ASSOCIATE NOEL VILLAREAL M.D.Performed By: #### CORONAVIRUS #### [facility] ,COVID-19 Lab Corpon [id number]-CoV-2 (COVID-19) Ab [place] QlNot detectedNormal Not DetectedCleveland Clinic FoundationComment on above:Order Comment: CALL ONLY IF POS TO [phone] Healthcare Worker?: YResult Comment: This nucleic acid [...] detected) result in this assay. PERFORMED BY: [address] [place] [address] PATHOLOGIST FULFILLMENT ASSOCIATE NOEL VILLAREAL M.D.Performed By: #### CORONAVIRUS #### [facility] ,COVID-19 Lab Corpon [id number]-CoV-2 (COVID-19) Ab [place] QlNot detectedNormal Not DetectedCleveland Clinic FoundationComment on above:Order Comment: CALL ONLY IF POS TO [phone] Healthcare Worker?: YResult Comment: This nucleic acid amplification test was developed and its performance characteristics determined by [employer]. Nucleic acid amplification tests include RT- PCR [...] detected) result in this assay. PERFORMED BY: [facility] [address] [place] [place] [address] PATHOLOGIST FULFILLMENT ASSOCIATE NOEL VILLAREAL M.D.Performed By: #### CORONAVIRUS #### [facility] , Vital Signs Date TimeVital SignValuePerforming XdvkwafyhCqihqyzj65-68-9307 11:27-0400Body mkauji26.52 kgKathlpolly Warren DO Work Phone: [facility] HospitalFmoxbjwjyl04-24-2146 11:27-0400Diastolic blood mm[Hg]Li Rinkes DO Work Phone: [facility] HospitalSwrvstdszh79-65-5075 11:27-0400Systolic blood lweijrvl914 mm[Hg]Li Rinkes DO Work Phone: [facility] HospitalTdditqoaeq23-43-2066 13:35-0400Body ycglwi072.18 cmKristina Lopez MD Work Phone: [phone]10-09-2025 13:35-0400 Body mass index (BMI) [Ratio]34 kg/i7KnqiivKristina Lopez MD Work Phone: [phone]10-09-2025 13:35-0400 Body uthrgh79.65 kgKristina Lopez MD Work Phone: [phone]10-09-2025 13:35-0400 Diastolic blood xhjkcafj72 mm[Hg]Kristina Lopez MD Work Phone: [phone]10-09-2025 13:35-0400 Heart rate96 /minKristina Lopez MD Work Phone: [phone]10-09-2025 13:35-0400 Systolic blood jexojsno036 mm[Hg]Kristina Lopez MD Work Phone: [facility]09-16-2025 11:35-0400 Body .52 kgKatmary Warren DO Work Phone: [facility] HospitalMbzwfgtuxh72-85-0246 11:35-0400Diastolic blood mm[Hg]Li Warren DO Work Phone: [facility] HospitalLjhsueowxl99-01-8246 11:35-0400Systolic blood nfvvlhpi955 mm[Hg]Li Warren DO Work Phone: [facility] HospitalGbreaclbvm04-00-8721 13:17-0400Body tfojkw697.18 cmCleveland Clinic Foundation05-11-2025 13:17-0400Body mass index (BMI) [Ratio]34.3 kg/e2VxugmozpiCleveland Clinic Foundation05-11-2025 13:17-0400Body tgryvkbcqlg82.7 [degF][facility]05-11-2025 13:17-0400Body jshopf21.45 [facility]05-11-2025 13:17-0400Diastolic blood zfqoackj21 mm[Hg][facility]05-11-2025 13:17-0400 Heart wtof205 /[facility]05-11-2025 13:17-0400 Respiratory rate20 /[facility]05-11-2025 13:17-0400 SaO2% (BldA) [Mass fraction]98 %[facility]05-11-2025 13:17-0400Systolic blood mm[Hg][facility] 02-22-2025 09:06-0400Body ruwugj700.18 cmC[facility] Clinic Foundation 02-22-2025 09:06-0400Body mass index (BMI) [Ratio]34.2 kg/t7KmwgmuqsnCleveland Clinic Foundation03-28-2025 09:06-0400Body oapqxt39.33 kgCleveland Clinic Foundation03-28-2025 09:06-0400Diastolic blood nuikgkkz01 mm[Hg][facility]03-28-2025 09:06-0400Heart rate98 /[facility]03-28-2025 09:06-0400Systolic blood ihowbyrg031 mm[Hg][facility]09-12-2024 14:58-0400Body nilawd468.18 cmC[facility] Clinic Foundation09-12-2024 14:58-0400Body mass index (BMI) [Ratio]34.6 kg/m2 [facility]09-12-2024 14:58-0400Body hlfblefbmpy66.4 [degF][facility]09-12-2024 14:58-0400Body nzuzal341.35 kg [facility]09-12-2024 14:58-0400Diastolic blood eusafxkk82 mm[Hg][facility]09-12-2024 14:58-0400Heart ahxn770 /min [facility]09-12-2024 14:58-0400Respiratory rate18 /min [facility]09-12-2024 14:58-6458GaU9% (BldA) [Mass fraction]97 %[facility]09-12-2024 14:58-0400Systolic blood mm[Hg][facility]09-06-2024 14:32-0400 Body pckobv334.18 cmCleveland Clinic Foundation09-06-2024 14:32-0400Body mass index (BMI) [Ratio]34.7 kg/k9PmguqemhsCleveland Clinic Foundation09-06-2024 14:32-0400Body laurclhgxjr80.1 [degF][facility]09-06-2024 14:32-0400Body ozaejm581.75 kgCleveland Clinic Foundation09-06-2024 14:32-0400Diastolic blood kuaurbfx06 mm[Hg][facility] 08-03-2024 14:32-0400Heart xqwo628 /minCleveland Clinic Foundation 08-03-2024 14:32-0400Respiratory rate18 /[facility] 08-03-2024 14:32-0194TdO6% (BldA) [Mass fraction]97 %[facility]09-06-2024 14:32-0400Systolic blood dujawqzx770 mm[Hg][facility] Encounters Encounter DateEncounter TypeCare ProviderFacilityStart: 09-10-2025 End: 86-58-9378csbecmziswVPYMCIGS E RINKESNot AvailableStart: 09-10-2025 End: 01-77-9535Baxlgj outpatient visit 25 minutesKathleen E Rinkes DO Work Phone: noMS [place] OBGYNComment on above:Enlarged uterus (Primary Dx); Uterine prolapse; Pelvic pressure in femaleStart: 09-09-2025 End: 35-05-1861xbnrswomjhBWYZDLXN RINKESNot AvailableStart: 09-05-2025 End: 01-93-1879xyotlzibhiTkfrza E Braun MD Work Phone: [facility] Work Phone: Start: 09-05-2025 End: 34-07-3667Cjexsma encounter procedureKristina Lopez MD-[facility] Work Phone: Start: 08-13-2025 End: 54-36-5713Ckwyne flowsheetKathleen E Rinkes DO Work Phone: [facility] [place] OBGYNStart: 08-13-2025 End: 83-88-4403Mgrqqp flowsheetKathleen E Rinkes DO Work Phone: [facility] [place] OBGYNStart: 08-13-2025 End: 29-56-2730Lykfvlz preventive medicine new patient 40-64yrsKathleen E Rinkes DO Work Phone: [facility] [place] OBGYNComment on above:Encounter for gynecological examination without abnormal finding (Primary Dx); Screening for malignant neoplasm of cervix; Enlarged uterus; Uterine prolapse; PerimenopauseStart: 08-13-2025 End: 52-50-8574Cpwfsma encounter statusKathleen E Rinkes DO Work Phone: [facility] Work Phone: start: 08-13-2025 End: 06-99-3944nsymvhaxxbAGVXVQFD E RINKESNot AvailableStart: 46-95-6107Ksi- patient / Non-visitKristina Lopez MD-[facility] Work Phone: Start: 04-07-2025 End: 18-57-5269gwafprcamqQfwufxcubWVUMedicine [facility] Work Phone: Start: 04-07-2025 End: 13-20-1070Szvmgah encounter procedureUn[facility] Work Phone: Start: 02-22-2025 End: 42-61-9615eknzcncibnCtxxeawlbLakeHealth [facility] Work Phone: Start: 02-22-2025 End: 16-86-5364Yxagxsh encounter procedureUnc Health [facility] Work Phone: Start: 08-09-2024 End: 97-22-0244ctvlusalxsMaynhckbnLakeHealth [facility] Work Phone: Start: 08-09-2024 End: 44-34-6898Zvgoqmg encounter procedureUnc Health [facility] Work Phone: Start: 08-03-2024 End: 48-43-2368azwuyyzszsCxfgmqpykLakeHealth [facility] Work Phone: Start: 08-03-2024 End: 57-54-9817Kovrnrf encounter procedureUnc Health Pard[facility]ician [facility] Work Phone: Start: 29-73-1584Ect-patient / Non-visitFirlifepoint health Physician Group-[facility] Work Phone: Start: 10-06-2022 End: 13-30-7542vxswifqucjNJ BETSY Muñizcility:H1 Plan of Treatment DateCare ActivityDetailAuthorStart: 09-10-2025 End: 83-46-0409Skamjzo encounter yquhlrqve33/14/2025 11:15 AM EDT Office Visit [facility] [address] [place] [address] Li Warren, DO [address] [place] [address] [facility] OBGYNStart: 09-09-2025 End: 58-67-3967Wfbmgekujxim / ancillary services ppbwixkyiw20/13/2025 3:00 PM EDT Ancillary Procedure [facility] [address] [place] [phone] [facility] OBGYNStart: 50-95-2594Ycpsqba referral [facility] Work Phone: Start: 08-13-2025 End: 31-32-5704Aurwxny encounter quhxqsspi72/16/2025 11:30 AM EDT Office Visit [facility] [address] [place] [address] Li Warren, DO [address] [place] [address] Encounter for gynecological examination without abnormal findingNOMS Mcgarry OBGYNComment on above:Encounter for gynecological examination without abnormal findingStart: 51-35-8536Qlxpnmifp vaccination Influenza Vaccine (#1)[facility] HealthcareStart: 46-13-8040Tjxvkyzuu for malignant neoplasm of breastMammogramNOMS HealthcareStart: 76-56-7752Wwmgsgdck for malignant neoplasm of cervixNOMS HealthcareStart: 75-91-2343Cktkkusys for malignant neoplasm of cervixPap SmearNOMS HealthcareStart: 20-17-9493Skhnxompl for malignant neoplasm of colonNOMS HealthcareIGP, RFX APTIMA HPV ASCUIGP, RFX APTIMA HPV ASCU Lab Routine Screening for malignant neoplasm of cervix Ordered: 08/13/2025[facility] Work Phone: comment on above:Ordered: 08/13/2025MG Breast - bilateral ScreeningCleveland Clinic FoundationPatient referralDetwiler Memorial Hospital Work Phone: XR Ribs - right ViewsKaiser Foundation Hospital Immunizations Immunization DateImmunizationNotesCare WcrsylhoFmforwqu45-77-1209daqackr toxoid, reduced diphtheria toxoid, and acellular pertussis vaccine, adsorbedCleveland Clinic Foundation Payers DatePayer CategoryPayerPolicy [id number] Cross Blue [id number] [id number]-qzhLrjp Pay [id number] Social History DateTypeDetailFacilityTobacco smoking status NHISUnknown if ever smokedDetwiler Memorial Hospital Work Phone: Start: 81-64-9061Grc Assigned At BirthFeSelect Medical [facility] Clinic Rehabilitation Hospital, AvonTobacco smoking status NHISUnknown if ever smokedNOMS HealthcareStart: 02-22-2025 End: 80-68-7242YwtXreqvw (finding)[facility] Hospitaltart: 12-82-3673Eelubvw smoking status NHISNever smoked tobacco (finding)[facility] Hospitaltart: 39-79-8457Gal assigned at birthNot on [facility] CenterGender identityNot on [facility] CenterStart: 75-63-8920IldSyggts [facility] Clinical Notes 10-07-2022 to 09-10-2025 Note Date & DwteCkjpWvzszvub55-11-2641 History of Present illness Narrative* Li Warren [...] Review Audit Reviewed by Shae Ortiz MA (Housefellow) on 09/10/25 at 1127 Medication Order Taking? Sig Documenting Provider Last Dose Status thyroid ([place]) 120 MG tablet [id number] Take 120 mg by mouth Daily Li [...] Family History Adopted: Yes documented in this encounterKindred HospitalCcrnzkqqnn68-53-6081 Hospital Discharge instructionsAmbulatory Orders* Referral to Gastroenterology Time Frame: 09/05/25, Location: None [facility] Work Phone: [phone]) 527-786509-16-2025 History of Present illness Narrative* Li Warren, [...] Pt has an order for mammogram at [facility] already. Pt c/o weak bladder. Denies breast [...] Review Audit Reviewed by Shae Ortiz MA (Housefellow) on 08/13/25 at 1133 Medication Order Taking? Sig Documenting Provider Last Dose Status thyroid ([place]) 120 MG tablet [id number] Yes Take 120 mg by mouth Daily [...] N81.4 5. Perimenopause N95.1 documented in this encounterKindred HospitalAlxzcupcll76-88-2149 Evaluation note* Diagnosis Onset Date Resolution Status Admit Date Hypothyroid acuteMarch 2024 9:04amScreening mammogram for breast canceracuteJanch 2024 9:04am [facility] Work Phone: [phone]) 803-871411-10-2022 NotePROCEDURE: XR FOOT RT MIN 3 VIEWS [...] Electronically authenticated by: BETSY GARCIA Date: 2022-10-07 08:22[facility] SystemEvaluation noteNo assessment information availableDetwiler Memorial Hospital Work Phone: Evaluation note* Diagnosis Onset Date Resolution Status Viral URI with cough noneactive [facility] Work Phone: Evaluation note* Diagnosis Onset Date Resolution Status Admit Date [facility]othy[facility] acuteNew[facility] Centerch 2024 9:04amScreening mammogram for breast canceracuteJanch 2024 9:04am [facility] Work Phone: Evaluation note* Diagnosis Encounter for gynecological examination without abnormal finding- Primary Screening for malignant neoplasm of cervix Screening for malignant neoplasm of the cervix Enlarged uterus Hypertrophy of uterus Uterine prolapse Uterine prolapse without mention of vaginal wall prolapse Perimenopause Symptomatic menopausal or female climacteric states documented in this encounter [facility] HealthcareEvaluation [facility]* Diagnosis Onset Date Resolution Status Admit Date Colon cancer screening acuteOctober 2024 1:30pmHypothyroidacuteOctober 2024 1:30pmPeripheral neuropathyacuteOctober 2024 1:30pmRib pain on right sideacuteOctober 2024 1:30pm [facility] Work Phone: Evaluation note* Diagnosis Enlarged [...] 9:0 4am Screening mammogram for breast cancer [facility] 2024 9:04am Chief Complaint cough [...] section and content) DATE CREATED AUTHOR 12/20/2021 [facility] DATE CREATED AUTHOR AUTHOR'S ORGANIZ ATION 01/18/2022 [facility] DATE CREATED AUTHOR AUTHOR'S ORGANIZ ATION 10/11/2022 [facility] DATE CREATED AUTHOR AUTHOR'S ORGANIZ ATION 09/10/2025 [facility] EPIC Care Teams (unrecognized [...] 2024 End: August 09, 2024Chelle Toney APRN MECHANICAL ESTIMATOR-CAttending ProviderActive Start: August 09, 2024 End: August 09, 2024 Team Status: Inactive Member Role Status Dates Kristina Lopez MD Primary Care Provider Active Start: April 07, 2025 End: April 07Amrit Melendrez ProviderActiveStart: April 07, 2025 End: April 07, 2025Team MemberRelationshipSpecialtyStart DateEnd Date Unallocated, [facility] Provider, [address] [place] [address] PCP - GeneralFamily Kkeeitcz68/14/25 Goals (unrecognized section and content) Goals may [...] Pt has an order for mammogram at [facility] already. Pt c/o weak bladder. Denies breast [...] BE BASED ON THE PRIMARY CLINICAL RECORDS. [facility] [employer] [facility]. provides no warranty or guarantee of the accuracy or completeness of information in this document.
[2025-10-21 16:55] LABS: Cast Seen? NONE SEEN #/LPF (NONE SEEN); Crystals Seen? None Seen #/HPF (None Seen); Urine Culture Indicated YES-FRMC
[2025-10-21 18:18] VITALS: BP 147/82; PULSE 82; O2SAT 98
== END 2025-10-21 18:19 | disposition home or self-care (01) ==
PROVIDERS: Nurse Practitioner Family; Emergency Provider Emergency Medicine; PCP Family Medicine
DX: R10.30 Lower abdominal pain, unspecified (principal); K59.00 Constipation, unspecified
CPT/HCPCS: 74176; 81001; 87086; 99284; 99285

== ENCOUNTER 2025-11-09 19:10 | Emergency (ER) | payer BC, SELFPAY ==
--- OUTSIDE RECORDS SUMMARY | 2020-12-24 12:00 | XMS_ITS | Continuity of Care Document ---
Author Organization [facility] Address [address] [place] [address] Phone Care Team Providers Care Dock Superintendent Name Role Phone Cheng Hadley Unavailable Unavailable Procedures Procedure Date Moderna COVID Vaccine Admin Dose 2 Moderna COVID-19 Vaccine Moderna COVID Vaccine Admin Dose 2 Moderna COVID-19 Vaccine Moderna COVID Vaccine Admin Dose 1 Moderna COVID-19 Vaccine Advance Directives Directive Yes / No Effective Date File Name No Information Encounters Encounter Description Practice Location Reason(s) For Visit Diagnoses Date Provider Providers Copied on Encounter [facility], [address], [place], [id number], tel:[phone] COVID [facility]D No Information Nadiapoly Cheng. [address], [place], [id number], [place]. tel:[phone] [facility], [address], [place], [id number], [place] tel:[phone] COVID [facility] No Information Visci DO Anand. [address], [place], [id number], [place]. tel:[phone] [facility], [address] [place] [address], [id number], tel:[phone] COVID E[facility] Encounter for screening for other viral diseases Herbert Son. [address], [place], [id number], [place]. tel:[phone] Family History Family Member Type Diagnosis Age At Onset No Information Immunizations Vaccine Date Status Comments Moderna COVID administered Source: New Im munization Record Moderna COVID administered Source: New Im munization Record Payers Payer name Insurance type Covered republican ID Authorsonam crump(s) [place] [id number] [place] [id number] [place] [id number] Social History Type Description Quantity Date Captured Comments Alcohol Use Details Unknown Caffeine Use Details Unknown Tobacco Use Status No Information Smoking Status No Information Sex Female Sexual Orientation Straight or heterosexual Gender Identity Female Chief Complaint And Reason For Visit No Information Reason For Referral Reason For Referral No Information History Of Present Illness Encounter Date Complaint History Of Prese nt Illness No Information Functional Status Date Functional Assessmen t No Information Instructions Date Instruction Additional Infor mation No Information Assessments Type Assessment Date No Information Patient Care Teams Name Effective Dates (start - stop) Status Members No Information
--- OUTSIDE RECORDS SUMMARY | 2025-10-29 10:23 | XMS_ITS | Continuity of Care Document ---
Author Organization [facility] Address [address] [place] [address] Phone Care Team Providers Care Cig[employer] Packer [employer] Shader Name Role Phone Kristina Lopez MD Primary Care Provider Kristina Lopez MD Attending Provider Li Warren DO Attending Provider [phone] Ashtyn Chang NP-C Attending Provider [phone] Amina Barrera CMA Attending Provider Unavaila ble Care Teams Patient Care Team Team Status: Active Member Role/Relationship Status Dates Kristina Lopez MD Primary Care Provider Active Visit Care Team Team Status: Inactive Member Role/Relationship Status Dates Kristina Lopez MD Primary Care Provider Active Start: September 05, 2025 End: September 05, 2025Brianna Velasquez ProviderActiveStart: September 05, 2025 End: September 05, 2025 Visit Care Team Team Status: Active Member Role/Relationship Status Dates Kristina Lopez MD Primary Care Provider Active Start: September 26, 2025 Brianna Velasquez ProviderActiveStart: September 26, 2025 Visit Care Team Team Status: Inactive Member Role/Relationship Status Dates Kristina Lopez MD Primary Care Provider Active Start: October 15, 2025 End: October 15, 2025Kinjal Valladares ProviderActiveStart: October 15, 2025 End: October 15, 2025 Visit Care Team Team Status: Active Member Role/Relationship Status Dates Kristina Lopez MD Primary Care Provider Active Start: October 21, 2025 Ashtyn Chang NP-CAttending ProviderActiveStart: October 21, 2025 Visit Care Team Team Status: Active Member Role/Relationship Status Dates Kristina Lopez MD Primary Care Provider Active Start: October 22, 2025 Amina Miranda Barrera ProviderActiveStart: October 22, 2025 Visit Care Team Team Status: Inactive Member Role/Relationship Status Dates Kristina Lopez MD Primary Care Provider Active Start: October 29, 2025 End: October 29, 2025Lindamary Warren Rosiejamison ProviderActiveStart: October 29, 2025 End: October 29, 2025 Chief Complaint and Reason for Visit Chief Complaint Admit Date pain in rib, feet numbness September 05, 2025 1:30pm Uterine Prolapse, Enlarged Uterus, Fibro ids October 15, 2025 3:44pm Amb Documentation October 22, 2025 10:28am Uterine Prolapse, Enlarged Uterus, Fibro ids . October 29, 2025 5:47am Reason for Visit Admit Date Colon cancer screening September 05, 2025 1:30pm Hypothyroid September 05, 2025 1: 30pm Peripheral neuropathy September 05, 2025 1:30pm Rib pain on right side September 05, 2025 1:30pm Reason for Referral Type Reason(s) Provider Provider Contact Information [facility] Address Start Date Referral to gastroenterologistEncounter for screening for malignant neoplasm of colon Z12.11 - Encounter for screening for malignant neoplasm of colonLi Squires RashidaJanes monroy Phone: [phone] [facility] [address] [facility] [address].11 - Encounter for screening for malignant neoplasm of colonCatdavis Beatrice Pope Janes Phone: [phone] [facility], [address] [facility] [address] [address] Allergies, Adverse Reactions, Alerts Allergen Type Severity Reaction Last Updated Verified Status No Known Allergies Allergy Unknown October 29, 2025 6:18amYesActive Social History Smoking Status Status Start Date End Date Date of Observa tion Never smoked tobacco (finding) October 29, 2025 6:22am Observation Status Observation Response Date of Response Legal Sex Female (finding) Sex Assigned At BirthFemaleNovember 1969 Family History Relationship Condition Age at Onset Recorded Date/T rené Not Specified Adopted Unknown Problems Active Problems Problem Diagnosis/Recorded Date Onset Date Stat us Colon cancer screening September 05, 2025 12:56pm Unkno wn Active Rib pain on right side September 05, 2025 12:49pm Unkno wn Active Type 2 diabetes mellitus wit h hyperglycemia October 23, 2025 10:11am Unknown Active Screening mammogram for breast cancer February 22, 2025 8:18am Unknown Active Gastroenteritis August 10, 2024 9:35am Unknown Active Hypothyroid April 24, 2024 12:00pm Unknown Activ e Peripheral neuropathy September 05, 2025 1:00pm Unknown Active Respiratory infection April 07, 2025 1:09pm Unknown Active Uterine prolapse October 15, 2025 4:17pm Unknown Active S/P laparoscopic hysterectomy October 29, 2025 9:31a m Unknown Active Bronchitis August 10, 2024 9:35am Unknown Active Medications Medication Status Dose Units Route Directions Qty Days Refills S tart Date Stop Date End Date Reason(s) Instructions Adherence Thyroid (Pork) ([place] Thyroid) 90 mg tablet Discontin ued 0 .ROUTE.IQJSDCQ336Poubb 2023 10:19amAugust 2023 8:56amTAKE 1 TABLET BY MOUTH EVERY DAYThyroid (Pork) ([place] Thyroid) 90 mg tabletDiscontinued0.ROUTE .QMMCBKU594Jhnwbs 2023 8:56amMarch 2024 12:19pmTAKE 1 TABLET BY MOUTH EVERY DAYThyroid (Pork) ([place] Thyroid) 90 mg tabletDiscontinued0.ROUTE.COMPLEX 300March 2024 12:19pmMarch 2024 7:13amTAKE 1 TABLET BY MOUTH EVERY DAYThyroid (Pork) ([place] Thyroid) 90 mg tabletDiscontinued0.ROUTE.UTVYEXC012 February 20, 2025 7:13amMay 2024 12:21pmTAKE 1 TABLET BY MOUTH EVERY DAY Thyroid (Pork) ([place] Thyroid) 120 mg eebyusKflsntdqjwsa973WFIRZwjix048Qxoxae 2024 11:00pmNovember 2024 4:19pmThyroid (Pork) ([place] Thyroid) 120 mg issvndTwunan556PMCWBfcjz wevvmyr890Spaagpar2024 8:29amComplies with drug therapyMetformin 500 mg tablet extended release 24 leWpklus357BTTALksts180 October 23, 2025 12:00amNon-compliance of drug therapyBlood-Glucose Sensor (Dexcom G6 Sensor) deviceActive0.Anqog22VyjydoeyOctober 23, 2025 12:00amType 2 diabetes mellitus with hyperglycemia Type 2 diabetes mellitus with hyperglycemiaAs directed Auwhfgs-Cbruecchttorp-Tuxakddv (Excedrin Extra Strength) 250-250-65 mg tablet Mahoob7IMWTIOtryy 6 hours as needed for painOctober 15, 2025 12:00amComplies with drug therapyThyroid (Pork) ([place] Thyroid) 120 mg asnnzgXntujtraldgg544EE POEvery morningOctober 15, 2025 12:00amNovember 2024 8:29amIbuprofen 600 mg aemuqsVanmhq042RSTGKfmyj 6 hours as needed for mnbz860Vpwtbuaf 2nd, 2025 12:00amUnknownTramadol 50 mg fruvagRqzxee89EFPVQiisv 6 hours as needed for pain 2024 12:00amStatus post laparoscopic hysterectomy Acquired absence of both cervix and uterusUnknownDocusate Sodium (Colace) 100 mg lozhipnVvdnbc176CQOCSszlb daily as needed for vdpimaltrkzc842Qfcewbmc 2nd, 2025 9:30amUnknownThyroid (Pork) ([place] Thyroid) 90 mg hyghdmVimjlmwsmzgk448YAGT DailyApril 2023 11:00pmApril 2023 10:19amAzithromycin 250 mg tablet Kqrpcofgqxsc9CCgsbpg164Xlgmhnseg 11th, 2024 11:00pmJan 2024 12:18pm Bronchitis Bronchitis, not specified as acute or chronicTake 2 on day 1 and then take 1 for the next 4 days (days 2-5)Methylprednisolone (Medrol ([place])) 4 mg tablets,dose zllbIvxdjwahccfb0CGrwy package ypdlzcncfl144Dtpdeaoph 11th, 2024 11:00pmMar 2024 12:18pmPO PER PKG DIRAlbuterol Sulfate 90 mcg/actuation HFA aerosol lonfhnwLfdlpgizcpsw9ZGZCEBTKSNKGGWOAAFJ 4-6 HOURS as needed for shortness of breath or wheezing6.7300Se2023 11:00pmFebruary 14, 2025 12:19pm Thyroid (Pork) ([place] Thyroid) 90 mg tapvlsEivjhbawsmyb51NDGVWeclvVjk 2024 12:20pmAugust 2024 12:00pmAzithromycin 250 mg nrhplfHcgxuubdiolo3AJ .OJDCPKG14Nhb 2024 11:00pmOctober 2024 12:37pmFor 250 mg dose pack: take 500 mg today (day 1), then 250 mg for 4 days (days 2-5) POAlbuterol Sulfate 90 mcg/actuation HFA aerosol kjmfguaIcvbtvcpuyob3YMKQTDCMHKSLVDCEKJ 4-6 HOURS as needed for shortness of breath or wheezing6.70April 06, 2025 11:00pmOctober 2024 12:37pmMethylprednisolone (Medrol ([place])) 4 mg tablets,dose packDiscontinued 0POper package uofqsepexz572Sln 10th, 2025 11:00pmOctober 2024 12:37pmPO PER PKG DIRBenzonatate 100 mg puuzvroNvohjdodhebn445IGPDGkczs times eostn2644 August 02, 2024 11:00pm[facility] 20[facility] 12:18pm Immunizations Immunization Event Date Not Given Reason Dose Number Ophthalmic Surgical Assistant Lot Number Reason(s) Given Vaccine Information Statement (VIS) Detail Administration Location Tetanus, Diphtheria, Pertussis (Tdap) February Procedures Procedure Date Performed Status OR TLH Vag Hyster (Not Applicable) October 29, 2025 7:30am completed Relevant Diagnostic Tests and/or Laboratory Data Laboratory Results Test Collection Date/Time Result Date/Time Result Interpretation Reference Range Result Comment Performing Site Vitamin B12 Level September 26, 2025 1:33pm September 26, 2025 1:33pm 339 pg/mL 232-1245Performed at: [facility] Lab[address] [id number] Director: Rodrigo Lopez PhD, Phone: [phone] Thyroxine September 26, 2025 1:33pmOctober 2024 1:33pm0.99 ng/dL0.76-1.46Folate September 26, 2025 1:33pmOctober 2024 1:33pm26.60 ng/mL8.60-58.90Estimated Average GlucoseOct2024 1:33pmSeptember 26, 2025 1:71fc115 mg/dL Thyroid Stimulating Hormone 3rd GenOct2024 1:33pmOct2024 1:33pm0.453 u[iU]/mL0.358-3.740Anion GapSeptember 26, 2025 1:33pmOct2024 1:33pm15.3Basophils # (Auto)September 26, 2025 1:33pmOct2024 1:33pm0.0 10 3/uL0.0-0.1Urine Microscopic ReviewOctober 21, 2025 4:34pm October 21, 2025 4:34pmYESHemoglobin Y7vGhpzudx2024 1:33pmOct2024 1:33pm7.2 %Above high normal4.5-6.2ADA RECOMMENDED LIMIT 4.0 - 6.0ADA THERAPEUTIC TARGET < 7.0ACTION SUGGESTED> 7.0BUN/Creatinine RatioOct2024 1:33pmOct2024 1:33pm17.6Basophils (%) (Auto)September 26, 2025 1:33pmOct2024 1:33pm0.5 %0.2-2.0Urine BilirubinNov2024 4:34pmNov2024 4:34pmNEGATIVENEGATIVEBlood Urea NitrogenOct2024 1:33pmOct2024 1:33pm15.0 mg/dL7.0-18.0Eosinophils # (Auto) September 26, 2025 1:33pmOct2024 1:33pm0.2 10 3/uL0.0-0.7Urine Occult BloodNov2024 4:34pmNov2024 4:34pmSMALLAbnormal (applies to non-numeric results)NEGATIVECalcium LevelOct2024 1:33pmOct2024 1:33pm9.2 mg/dL8.5-10.1Eosinophils (%) (Auto)September 26, 2025 1:33pmOctober 2024 1:33pm2.0 %0.9-7.0Urine AppearanceNov2024 4:34pmNov2024 4:34pmCLEARCLEARChloride LevelOct2024 1:33pmOctober 2024 1:72fd934 mmol/N37-882QlenjrindfWqkqvrg 2024 1:33pmOctober 2024 1:33pm42.1 %36.0-48.0Urine ColorNov2024 4:34pmNov2024 4:34pmYELLOWYELLOWCarbon Dioxide LevelOct2024 1:33pmOctober 2024 1:33pm24.7 mmol/L21.0-32.0HemoglobinOct2024 1:33pmOct2024 1:33pm14.8 g/dL12.0-16.0Urine Glucose (UA)October 21, 2025 4:34pmNov2024 4:34pmNEGATIVE mg/dLNEGATIVECreatinine September 26, 2025 1:33pmOct2024 1:33pm0.85 mg/dL0.55-1.02Immature Granulocyte # (Auto)September 26, 2025 1:33pmOct2024 1:33pm0.03 10 3/uL0.00-0.03Urine KetonesAtrium Health Anson2024 4:34pmNov2024 4:34pm TRACE mg/dLAbnormal (applies to non-numeric results)NEGATIVEEstimated GFR ()September 26, 2025 1:33pmOct2024 1:33pm>60>=60 mL/min/1.73m 2Immature Granulocyte % (Auto)September 26, 2025 1:33pmOctober 2024 1:33pm0.4 %0.0-0.5Urine Leukocyte EsteraseAtrium Health [facility]son2024 4:34pm October 21, 2025 4:34pmNEGATIVENEGATIVEEstimated GFR (Non- September 26, 2025 1:33pmOct2024 1:33pm>60>=60 mL/min/1.73m 2 Lymphocytes # (Auto)September 26, 2025 1:33pmOct2024 1:33pm2.6 10 3/uL1.2-3.8Urine NitriteNov2024 4:34pmNov2024 4:34pm NEGATIVENEGATIVEGlucose LevelOct2024 1:33pmOct2024 1:33pm 199 mg/dLAbove high ityfpz44-915Ojptxbfxvkd (%) (Auto)September 26, 2025 1:33pm September 26, 2025 1:33pm35.2 %20.5-60.0Urine pHNov2024 4:34pm October 21, 2025 4:34pm5.55.0-9.0Potassium LevelOct2024 1:33pm September 26, 2025 1:33pm4.0 mmol/L3.5-5.1Mean Corpuscular HemoglobinOct2024 1:33pmOct2024 1:33pm31.2 pg26.7-34.0Urine ProteinNov2024 4:34pmNov2024 4:34pmNEGATIVE mg/dLNEG/TRACESodium Level September 26, 2025 1:33pmOct2024 1:74aa709 mmol/L008-233Vbij Corpuscular Hemoglobin ConcentOct2024 1:33pmOct2024 1:33pm 35.2 g/dL29.9-35.2Urine Specific GravityNov2024 4:34pmNov2024 4:34pm>=1.030Abnormal (applies to non-numeric results)1.005-1.025Mean Corpuscular VolumeOct2024 1:33pmOct2024 1:33pm88.8 fL 81.0-99.0Urine UrobilinogenNov2024 4:34pmNov2024 4:34pm 0.2 EU/dL0.2-1.0Monocytes # (Auto)September 26, 2025 1:33pmOctober 2024 1:33pm0.4 10 3/uL0.3-0.8Monocytes (%) (Auto)September 26, 2025 1:33pmOctober 2024 1:33pm5.4 %1.7-12.0Mean Platelet VolumeOct2024 1:33pm September 26, 2025 1:33pm9.4 fLBelow low normal9.5-13.5Neutrophils # (Auto) September 26, 2025 1:33pmOct2024 1:33pm4.2 10 3/uL1.4-6.5Neutrophils (%) (Auto)September 26, 2025 1:33pmOct2024 1:33pm56.5 %43.0-75.0 Platelet CountOct2024 1:33pmOctober 2024 1:97vw940 10 3/uL 150-450Red Blood CountOct2024 1:33pmOct2024 1:33pm4.74 10 6/uL4.20-5.40Red Cell Distribution WidthOct2024 1:33pmOct2024 1:33pm11.5 %11.0-15.0Corrected White Blood CountOct2024 1:33pm September 26, 2025 1:33pm7.4 10 3/uL4.0-11.0Corrected White Blood CountNov2024 4:21pmNov2024 4:37pm8.8 10*3/uL3.8-11.6FA[facility] [id number] [address] [facility] [address]Qfvfrcliibs WBC CountNov2024 4:21pmNov2024 4:37pm8.8 10*3/uL3.8-11.6FAultman Hospital [id number] [address] [facility] [address]Abt Blood CountNov2024 4:pmOctober 15, 2025 4:37pm4.33 10*6/uL3.60-5.00[facility] [id number] [address] [facility] [address]GoublogqqdSggikzpd 18th, 2025 4:21pmOctober 15, 2025 4:37pm 13.3 g/dL11.8-15.4FH[facility] [id number] [address] [facility] [address]KpqcqellimMmcvctnd 18th, 2025 4:21pmOctober 15, 2025 4:37pm 38.1 %34.0-46.4FH[facility] [id number] [address] [facility] [address]Awhx Corpuscular VolumeOctober 15, 2025 4:pmOctober 15, 2025 4:37pm87.9 fI60-944OgfhsjyxnUc Health Ctr [id number] [address] [place] [address]Dkgj Corpuscular HemoglobinNov2024 4:pmOctober 15, 2025 4:37pm30.7 pg24.7-34.3FHocking [facility] [id number] [address] [place] [address]Mxbx Corpuscular Hemoglobin ConcentNov2024 4:21pm October 15, 2025 4:37pm35.0 g/dL32.0-35.0[facility] [id number] [address] [facility] [address]Ckb Cell Distribution WidthOctober 15, 2025 4:pmOctober 15, 2025 4:37pm12.6 %11.9-15.3FH[facility] [id number] [address] [facility] [address]Zgntiwix CountOctober 15, 2025 4:pmOctober 15, 2025 4:95wx424 10*3/zJ776-334OahoundymUc Health Ctr [id number] [address] [place] [address]Gntl Platelet VolumeNov2024 4:21pmOctober 15, 2025 4:37pm7.5 fL6.3-10.7FH[facility] [id number] [address] [facility] [address]Tzedloybjkt (%) (Auto)October 15, 2025 4:pmOctober 15, 2025 4:37pm58.5 %.[facility] [id number] [address] [facility] [address]Xirxnzkrvaj (%) (Auto)October 15, 2025 4:2024 4:37pm34.6 %.[facility] [id number] [address] [facility] [address]Dmvbhckmj (%) (Auto)October 15, 2025 4:2024 4:37pm5.0 %.[facility] [id number] [address] [facility] [address]Pglgdkvqotg (%) (Auto)October 15, 2025 4:2024 4:37pm1.3 %.[facility] [id number] [address] [facility] [address]Bbmgmivrd (%) (Auto)October 15, 2025 4:2024 4:37pm0.6 %.[facility] [id number] [address] [facility] [address]Tgxitfsvg RBC Relative Count (auto)October 15, 2025 4:21pm October 15, 2025 4:37pm0.1 /100{WBC}0-0.5FHock[facility] [id number] [address] [facility] [address]Vhyqgwliuvv # (Auto)October 15, 2025 4:2024 4:37pm5.2 10*3/uL1.8-7.7FHock[facility] [id number] [address] [facility] [address]Hvozjqeeswg # (Auto)October 15, 2025 4:2024 4:37pm3.1 10*3/uL1.00-4.8[facility] [id number] [address] [facility] [address]Diytpaxmq # (Auto)October 15, 2025 4:pmOctober 15, 2025 4:37pm0.4 10*3/uL0.0-0.8[facility] [id number] [address] [facility] [address]Hjogjdbyshe # (Auto)October 15, 2025 4:pmNov2024 4:37pm0.1 10*3/uL0.0-0.45[facility] [id number] [address] [facility] [address]Dqaxlukea # (Auto)October 15, 2025 4:21pmOctober 15, 2025 4:37pm0.1 10*3/uL0.0-0.2FH[facility] [id number] [address] [facility] [address]Ooslgqkgfqa TimeOctober 15, 2025 4:pmOctober 15, 2025 5:06pm11.7 s9.0-12.9A hematocrit value greater than 55% may lead to inaccurate results in coagulation testing. Patientshaving hematocrit values >55% require a special collection tube for coagulation studies. Please contact the laboratory at [phone] for redraw instructions.[facility] [id number] [address] [facility] [address]Xdrjetxqx Time International RatioNovember 2024 4:21pm October 15, [...] patients with mechanical heart valves: 3 - 4.5FHock[facility] [id number] [address] [facility] [address]Kocyltnrs Partial Thromboplast TimeOctober 15, 2025 4:21pm October 15, 2025 5:06pm25.5 s25.1-36.5A hematocrit value greater than 55% may lead to inaccurate results in coagulation testing. Patientshaving hematocrit values >55% require a special collection tube for coagulation studies. Please c ontact the laboratory at [phone] for redraw instructions.[facility] [id number] [address] [facility] [address]Kqzif HCG, QualitativeDece2024 6:05amDecember 2024 6:18amNegativeUc Health Ctr [id number] [address] [facility] [address]Vxmzqhr LevelNov2024 4:pmOctober 15, 2025 5:97te079 mg/dLAbove high shxpea31-682HCJ recommended reference rangeRandom Glucose Reference Range is dependent on time and content of last meal. Glucose of more than 200 mg/dL in a nonstressed, ambulatory subject supports the diagnosisof Diabetes Mellitus.[facility] [id number] [address] [facility] [address]Pfvla Urea NitrogenOctober 15, 2025 4:pmOctober 15, 2025 5:12pm13 mg/dL7-25[facility] [id number] [address] [facility] [address]QcbxxykeidKnvwgpjn 18th, 2025 4:pmOctober 15, 2025 5:12pm 0.71 mg/dL0.60-1.20[facility] [id number] [address] [facility] [address]Dzoacaurf GFR (CKD-EPI)October 15, 2025 4:2024 5:12pm> 60.0 mL/MinUc Health Ctr [id number] [address] [facility] [address]Azegmh LevelOctober 15, 2025 4:pmOctober 15, 2025 5:38zt250 mmol/S417-380QltvneofpUc Health Ctr [id number] [address] [place] [address]Potassium LevelOctober 15, 2025 4:pmOctober 15, 2025 5:12pm4.4 mmol/L3.5-5.1FHock[facility] [id number] [address] [facility] [address]Llwoceot LevelOctober 15, 2025 4:pmOctober 15, 2025 5:98fz611 mmol/L20-909LxqwfmintUc Health Ctr [id number] [address] [facility] [address]Obkjop Dioxide LevelOctober 15, 2025 4:21pmOctober 15, 2025 5:12pm25.6 mmol/L21.0-31.0[facility] [id number] [address] [facility] [address]Ejrdt GapOctober 15, 2025 4:21pmOctober 15, 2025 5:12pm 10.8 mEq/L6.0-15.0[facility] [id number] [address] [facility] [address]Gklqpdf LevelOctober 15, 2025 4:21pmOctober 15, 2025 5:12pm8.8 mg/dL8.6-10.3FH[facility] [id number] [address] [facility] [address]Qczwljop Creatinine Clearance (ChemOctober 15, 2025 4:21pm October 15, 2025 5:12pmN/AFHocking Valley Community Hospital [facility]tr [id number] [address] [facility] [address]Swlnpob GlucoseDece2024 6:50amDece2024 6:34kr002 mg/dLRandom Glucose Reference Range is dependent on time and content of last meal. Glucose of more than 200 mg/dL in a nonstressed, ambulatory subject supports the diagnosis of Diabetes Mellitus.Point of Care testing Vital Signs Vital Reading Result Reference Range Collection Date/Time Height 67 [in_i] September 05, 2025 12:52mzBirpvg71.65 kgOctcentral [facility] 2024 12:35pmHeart Rate96 /nfn64-720Fiktfmm 2024 12:35pmBP Kxdvnopl639 mm[Hg]100-140Octcentral state hospital 2024 12:35pmBP Yqoiewqig12 mm[Hg]60-100Octcentral state hospital 2024 12:35pmBMI (Body Mass Index)34.0 kg/z1Bkwnwim 2024 12:45snJhesmy49 [in_i]October 29, 2025 6:55fdHhhrzu34.00 kgDeceer 2024 6:22amBody Rvgvjyfllkg08.1 [degF] 97.6-99.0Deceer 2024 11:09amHeart Rate75 /nas21-519VlrkxrnxOctober 29, 2025 12:54pmRespiratory rate16 /jzk44-10Dtbivtke 2nd, 2025 12:54pmOxygen saturation by Pulse dgmnvqif20 %95-100October 29, 2025 12:54pmBP Psktbbha332 mm[Hg] 100-140De2024 12:54pmBP Tndfufyiu19 mm[Hg]60-100Decemb2024 12:54pmInhaled oxygen flow rate2 L/minDece2024 12:54pm Advance Directives Advance Directive Response Recorded Date/ Time Advance Directives No March 23 6:39pm Insurance Providers Guarantor Maria Guadalupe Neri Address [address] [facility] [address]Xxipmzy Info.Home Phone: Payer Group Member ID Coverage Type Subscriber Relationship to Subscriber Effective Date Expiration Date Bryce CLARK Id: [id number] A Halle Id: [id number] [address] [facility] [address] Home Phone: Self Encounters Encounter Location(s) Arrival/Admit Date Discharge/Departure Date Discharge/Departure Disposition Provider(s) Departed Physician/ Provider Office Visit -[facility] September 05, 2025 1:30pm September 05, 2025 2:06pm Discharged to home care or self care (routine discharge) Kristina Lopez MD Non-patient / Non-visit -[facility] O ctober 2024 2:33pm ROMEO Velasquezeparted Xlvaiqwk-Uak-Vtzlttqx TestingOctober 15, 2025 3:44pmOctober 15, 2025 3:45pmDischarged to home care or self care (routine discharge)Mary Champion-patient / [facility]hl-racgf-[facility]November 2024 4:34pm([place]) Ashtyn Chang NP-CNon-patient / Ugj[facility]hppan[facility] 10:28amCatdavis Barrera CMADeparted [facility] 5[facility]am[facility] 20[facility] 3:15pmDischarged to home care or self care (routine [...] 1:30pm Plan of Treatment Author [facility] 6:38pmDiscussed options of treatment plan [...] Procedures Procedure Name Ordered Date Scheduled Date Admit Status Order October 29, 2025 7:19am Dec ember 2024 11:08am Code Status October 29, 2025 7:19am Decemb er 2024 7:19am Discharge Order October 29, 2025 9:33am [facility] er 2024 9:33am Basic Metabolic Panel September 05, 2025 12:59pm Thyroid Stim Hormone w/RflxOctober 2024 12:59pmVit. B12/Folate Profile September 05, 2025 12:59pm Future Medications Future medication information is unavailable Patient Instructions Instruction Admit Date Know your Meds October 29, 2025 5 :47am Goals Acute Goals Author Authored Date Experience reduced anxiety * Identifies current stressors * Develops effective coping behaviors * [facility] 2024 3:22pmRemain free of complications [facility] 2024 3:22pmUnderstand preop/postop care/sensations * Verbalizes understanding of surgical procedure * Verbalizes understanding of sensations following surgery * Verbalizes understanding of post-op treatment [facility] 3:22pmReport pain at tolerable level * Uses pain scale appropriately * Identify options for pain control - Analgesics - Narcotics - Non-medication measuresUniversity [facility]als [facility] 2024 3:22pmAbsence of imbalanced fluid volume s/s [facility] 2024 3:22pmAbsence of physical injury [facility] 2024 3:22pmAbsence of surgical site infection [facility] 2024 3:22pm Preferences Type Detail Treatment Intervention Code Status: Full Code Hospital Discharge Instructions Additional Instructions DISCHARGE INSTRUCTIONS FOR HYSTERECTOMY (TVH, LAVH, TLH) -During your time at home until your first office appointment we recommend that you assume the same type of activities that you have been doing while in the hospital. You may ride in the car unless otherwise specifically told not to. Unless specifically otherwise stated, generally you may drive the car when you feel strong enough to make emergency maneuvers as needed. -The incisions in your abdomen have been closed with suture that will dissolve. You may remove your bandages in 48 hours and the under lying steri-strips in 7 days. Please keep these areas clean and dry. You may get them wet in the shower. -You may walk up and down stairs. At first take one step at a time -- one step - stop, one step - stop, one step - stop. -You may do light housework, such as dusting, dishes, and cooking. -From your first office visit until the six week postoperative examination we recommend that you do not do any heavy lifting or straining, that you do not do any vacuuming, mopping, or sweeping. -We advise that you do not lift any heavy grocery bags from the cart to the car or from the car home. -We recommend that you do not do any yard work such as shoveling of snow, raking of leaves, cutting grass or gardening. -We recommend that you do not make beds or lift mattresses to change fitted sheets. -Light bleeding is normal for the first 4 weeks (i.e. changing panty liner 3 - 4 times a day.) Call me or go to the Emergency Room for heavy bleeding (soaking a maxipad every hour for 4 hours.) -Call the office or go to the Emergency Room if unable to reach me for fever, chills, worsening pain, persistent nausea/vomiting. -Call the office or go to the Emergency Room for shortness of breath, pain in your calfs or unusual swelling in your legs. -Showers are allowed until the vaginal drainage stops, then tub baths are generally acceptable unless otherwise specifically denied. -You will be advised at your first office visit when you may resume intercourse. This will be dependent upon the type of surgery performed. -We recommend that you use home remedies such as aspirin, Tylenol, Motrin for pain, Milk of Magnesia for laxative. If these preparations do not take care of your problem we want to be called and notified of your distress. -Please get prescriptions filled upon leaving the hospital and follow directions as outlined. Please note the refill limitations on the prescription. -If you have any specific questions not covered by these instructions please feel free to contact myself or one of the nurses who will answer your questions with my recommendations. -These instructions are intended to be a guideline for your postoperative care and recovery and are by no means intended to be totally complete. FOLLOW UP -Please call the office at ([phone]) to make follow appointment before leaving the hospital. -2 Weeks
[2025-11-09 19:14] VITALS: BP 168/94; PULSE 87; TEMP 36.3; O2SAT 97; BMI 32.9
--- NOTE | 2025-11-09 19:47 | ED.GENADUL1 ---
HPI HPI - General Adult General Chief complaint: Urogenital-Female Stated complaint: POSS KIDNEY STONE Time Seen by Provider: 11/09/25 19:12 Source: patient Mode of arrival: walk-in Limitations: no limitations History of Present Illness HPI narrative: Patient is a 55-year-old female presenting to the emergency department for evaluation of flank pain. Patient states that she has been having waves of left-sided flank pain for the last day. She states it starts in her left flank and radiates to the front of her abdomen. She states she had a kidney stone on the right side in the past, and these symptoms feel like her previous episodes of kidney stones. She states feels nauseous but send no vomiting. No fevers or chills. She is having intermittent episodes of dysuria. No hematuria. She states she is 11 days postop from laparoscopic hysterectomy for uterine fibroids. Related Data Home Medications ?Medication ?Instructions ?Recorded ?Confirmed docusate sodium 100 mg capsule mg PO 11/09/25 (Stool Softener) ibuprofen 600 mg tablet mg 11/09/25 metformin 500 mg tablet,extended mg PO 11/09/25 release 24 hr thyroid (pork) 120 mg tablet mg 11/09/25 tramadol 50 mg tablet mg 11/09/25 Previous Rx's ?Medication ?Instructions ?Recorded polyethylene glycol 3350 17 17 g PO DAILY #238 grams 10/21/25 gram/dose oral powder (Miralax) ibuprofen 600 mg tablet 600 mg PO Q6H PRN pain #30 tabs 11/09/25 sulfamethoxazole 800 1 tab PO BID 5 days #10 tabs 11/09/25 mg-trimethoprim 160 mg tablet (Bactrim DS) Allergies Allergy/AdvReac Type Severity Reaction Status Date / Time No Known Drug Allergies Allergy Verified 11/09/25 19:17 Opioid HPI Opioid Management Most Recent Opioid Data: Last Pain Scale 7 11/09/25, 20:40 Last ED Pain Assessment 11/09/25, 20:40 Last MAR Pain Assessment 11/09/25, 20:00 Review of Systems ROS Status of ROS 10 or more systems reviewed and unremarkable except as noted in history and below PFSH PFSH Social History Little interest or pleasure in doing things: not at all Feeling down, depressed, or hopeless: not at all Exam Narrative Exam Narrative: CONSTITUTIONAL: Patient sitting upright in the stretcher, appears uncomfortable and in acute pain, nontoxic, answering questions and following commands appropriately SKIN: Was warm and dry. EYES: Sclerae white. EARS, NOSE, THROAT: Moist oral mucosa. RESPIRATORY: Nonlabored respirations CARDIOVASCULAR: Normal rate and regular rhythm. There is no S3, S4, murmur, rub. GASTROINTESTINAL: Abdomen is soft, nontender, nondistended. No CVA tenderness bilaterally. Laparoscopic incision sites on the abdomen are clean/dry/intact without purulent drainage or overlying erythema. MUSCULOSKELETAL: No peripheral edema. NEUROLOGIC: Patient is awake and alert. Facies were symmetrical. Constitutional Vital Signs, click to edit/add: Last Vital Signs Temp 97.3 F L 11/09/25 19:14 Pulse 87 11/09/25 19:14 Resp 16 11/09/25 19:14 BP 162/88 H 11/09/25 21:39 Pulse Ox 98 11/09/25 21:39 Course Vital Signs Vital signs: Vital Signs Temperature 97.3 F L 11/09/25 19:14 Pulse Rate 87 11/09/25 19:14 Respiratory Rate 16 11/09/25 19:14 Blood Pressure 168/94 H 11/09/25 19:14 Pulse Oximetry 97 11/09/25 19:14 Temperature 97.3 F L 11/09/25 19:14 Pulse Rate 87 11/09/25 19:14 Respiratory Rate 16 11/09/25 19:14 Blood Pressure 162/88 H 11/09/25 21:39 Pulse Oximetry 98 11/09/25 21:39 Medical Decision Making MDM Narrative Medical decision making narrative: Patient is a 55-year-old female presenting to the emergency department for 1 day history of left-sided flank/abdominal pain. Her vital signs on arrival are significant for hypertension, otherwise within normal limits. She is afebrile and hemodynamically stable. Examination as noted above. My clinical impression is that the patient's symptoms are secondary to renal colic/nephrolithiasis and less likely pyelonephritis/UTI. Though she is postop from a hysterectomy, the surgical incision sites look like they are healing appropriately. Lower concern for postop complications. IV was established and laboratory studies were obtained. CT abdomen/pelvis was ordered. She was given IV ketorolac, IV morphine, and 1 L bolus normal saline for symptomatic treatment. CT abdomen/pelvis independently reviewed and interpreted by myself and radiology demonstrated mild left hydronephrosis and hydroureter due to a 3 mm stone at the left UVJ. Laboratory studies were unremarkable. No significant electrolyte or metabolic derangement. No evidence of acute kidney injury. No anemia, leukocytosis, or thrombocytopenia. No transaminitis or hyperbilirubinemia. Urinalysis was a contaminated specimen, though there was a small amount of bacteria. On reevaluation, patient states her pain is significantly improved. She is tolerating p.o. She is afebrile without signs/symptoms of sepsis. I do believe the patient is stable for discharge. Patient's presentation is most likely consistent with ureterolithiasis. They were instructed to follow up with her PCP for further care. Return precautions were given including any new or worsening symptoms. They were given a prescription for Bactrim DS x 5 days for her mildly infected urine. Patient understands and agrees to the plan. FINAL IMPRESSION: #Acute left-sided ureterolithiasis DISPOSITION: Discharged home CONDITION: Good Medical Records Medical records reviewed: Yes I reviewed the patient's medical records Lab Data Lab results reviewed: Yes I reviewed the patient's lab results Labs: Lab Results 11/09/25 11/09/25 Range/Units 19:41 21:15 WBC 11.1 H (4.0-11.0) 10^3/uL RBC 4.42 (4.20-5.40) 10^6/uL Hgb 13.5 (12.0-16.0) g/dL Hct 39.3 (36.0-48.0) % MCV 88.9 (81.0-99.0) fL MCH 30.5 (26.7-34.0) pg MCHC 34.4 (29.9-35.2) g/dL RDW 11.8 (11.0-15.0) % Plt Count 344 (150-450) 10^3/uL MPV 9.4 L (9.5-13.5) fL Neut % (Auto) 67.8 (43.0-75.0) % Lymph % (Auto) 23.0 (20.5-60.0) % [place] % (Auto) 6.2 (1.7-12.0) % Eos % (Auto) 2.1 (0.9-7.0) % Baso % (Auto) 0.5 (0.2-2.0) % Neut # (Auto) 7.5 H (1.4-6.5) 10^3/uL Lymph # (Auto) 2.6 (1.2-3.8) 10^3/uL [place] # (Auto) 0.7 (0.3-0.8) 10^3/uL Eos # (Auto) 0.2 (0.0-0.7) 10^3/uL Baso # (Auto) 0.1 (0.0-0.1) 10^3/uL Abs Immat Gran (auto) 0.05 H (0.00-0.03) 10^3/uL Imm/Tot Granulo (auto) 0.4 (0.0-0.5) % Sodium 139 (136-145) mmol/L Potassium 4.1 (3.5-5.1) mmol/L Chloride 102 (98-107) mmol/L Carbon Dioxide 29.0 (21.0-32.0) mmol/L Anion Gap 12.1 BUN 12.0 (7.0-18.0) mg/dL Creatinine 0.82 (0.55-1.02) mg/dL Est GFR ( Amer) >60 (>=60 mL/min/1.73m^2) Est GFR (Non-Af Amer) >60 (>=60 mL/min/1.73m^2) BUN/Creatinine Ratio 14.6 Glucose 134 H (74-106) mg/dL Calcium 9.3 (8.5-10.1) mg/dL Total Bilirubin 0.3 (0.2-1.0) mg/dL AST 16 (15-37) U/L ALT 26 (14-59) U/L Alkaline Phosphatase 129 H (46-116) U/L Total Protein 7.5 (6.4-8.2) g/dL Albumin 3.4 (3.4-5.0) g/dL Globulin 4.1 g/dL Albumin/Globulin Ratio 0.8 Urine Color Lt. yellow (YELLOW) Urine Clarity Clear (CLEAR) Urine pH 5.5 (5.0-9.0) Ur Specific [place] >=1.030 A (1.005-1.025) Urine Protein Negative (NEG/TRACE) mg/dL Urine Glucose (UA) Negative (NEGATIVE) mg/dL Urine Ketones Negative (NEGATIVE) mg/dL Urine Occult Blood Moderate A (NEGATIVE) Urine Nitrite Negative (NEGATIVE) Urine Bilirubin Negative (NEGATIVE) Urine Urobilinogen 0.2 (0.2-1.0) EU/dL Ur Leukocyte Esterase Small A (NEGATIVE) Urine RBC None seen (0-2) #/HPF Urine WBC 5-10 A (NONE SEEN) #/HPF Ur Squamous Epith Cells Few A (NONE/RARE) #/LPF Urine Crystals None seen (None Seen) #/HPF Urine Bacteria Small A (NONE SEEN) #/HPF Urine Casts None seen (NONE SEEN) #/LPF Urine Mucus None seen (NONE SEEN) Ur Culture Indicated? Yes-[facility] [place] Imaging Data CT scan - abdomen: Attestation: I personally reviewed and interpreted this imaging study as follows: Discharge Plan Discharge Chief Complaint: Urogenital-Female Clinical Impression: Kidney stone on left side Patient Disposition: Home, Self-Care Time of Disposition Decision: 21:22 Condition: Good Mode of Transportation: Private Vehicle Prescriptions / Home Meds: New ibuprofen 600 mg tablet 600 mg PO Q6H PRN (Reason: pain) Qty: 30 0RF sulfamethoxazole-trimethoprim [Bactrim DS] 800-160 mg tablet 1 tab PO BID 5 Days Qty: 10 0RF No Action polyethylene glycol 3350 [Miralax] 17 gram/dose powder 17 g PO DAILY Qty: 238 0RF tramadol 50 mg tablet docusate sodium [Stool Softener] 100 mg capsule PO ibuprofen 600 mg tablet metformin 500 mg tablet extended release 24 hr PO thyroid (pork) 120 mg tablet Print Language: Malawian Instructions: Kidney Stones (ED) Referrals: Kristina Lopez MD [Primary Care Provider, Family Practice] - 1 week Discharge Date/Time: 11/09/25 21:41
--- OUTSIDE RECORDS SUMMARY | 2025-11-09 19:49 | XMS_ITS | Clinical Summary ---
Author Organization [facility] Address [address] [place] [address] Care Team Providers Care Clothing Examiner Name Role Phone Unallocated, Noms Provider Primary Care Provi yessy Allergies No known active allergies Medications MedicationSigDispense QuantityRefillsLast FilledStart DateEnd DateStatus thyroid (Buhl) 120 MG tablet Take 120 mg by mouth Daily5Active Encounters DateTypeDepartmentCare TssdXqvvbbjlgls22/02/2025External Result Encounter [facility] External Department Unsolicited Li Warren, DO 10/15/2025External Result Encounter [facility] External Department Unsolicited Li Warren, DO 10/15/2025External Result Encounter [facility] External Department Unsolicited Li Warren, DO 10/15/2025External Result Encounter [facility] External Department Unsolicited Li Warren, DO 10/15/2025External Result Encounter [facility] External Department Unsolicited Li Warren, DO 10/10/2025Telephone [facility] [place] [facility] [address] [place] [address] Penny Forde LPN 09/16/2025Telephone [facility] [place] [facility] [address] [place] [address] Elizabeth Isidro MA 09/10/2025 11:15 AM EDTOffice Visit [facility] [place] [facility] [address] [place] [address] Li Warren, DO Enlarged uterus (Primary Dx); Uterine prolapse; Pelvic pressure in jkvnkm6809/10/20252836Krymgx63/13/2025 3:00 PM EDTAncillary Procedure [facility] [address] [place] [phone] Enlarged uterus; Uterine xbnkrlog44/13/5010Xptpho73/16/2025 11:30 AM EDTOffice Visit [facility] [address] [place] [phone] Li Warren DO Encounter for gynecological examination without abnormal finding (Primary Dx); Screening for malignant neoplasm of cervix; Enlarged uterus; Uterine prolapse; Ehtkuwqayorrs16/16/2025amboo flowsheet [facility] [address] [place] [phone] iL Warren DO 08/13/2025Travelfrom Last 3 Months Social History Tobacco UseTypesPacks/DayYears UsedDateSmoking Tobacco: Never Assessed CommentsUnknownSex and Gender InformationValueDate RecordedSex Assigned at Not on fileLegal NoxMpvnmg59/01/2023 8:33 PM EDTGender IdentityNot on fileSexual OrientationNot on file Last Filed Vital Signs Vital SignReadingTime TakenCommentsBlood Wteesmwq202/8209/10/2025 11:27 AM EDT Pulse--Temperature--Respiratory Rate--Oxygen Saturation--Inhaled Oxygen Concentration--Utgepg57.5 kg (215 lb)09/10/2025 11:27 AM EDTHeight--Body Mass Index-- Plan of Treatment DateTypeDepartmentCare Team (Latest Contact Info)Gachtjxccfm17/17/2025 11:00 AM ESTOffice Visit [facility] [address] [place] [phone] Li Warren DO [address] [place] [address] Postoperative examinationHealth MaintenanceDue DateLast DoneCommentsCT Dhhwbuzpormo86/06/5184Xdwnxugbyji1970Colorectal Cancer Didcyfxtu1970 FIT-DNA1970FIT1970FOBT1970 6185Llzajcucalzis1970Pap Smear 1991Cervical Cancer Dczxqfoxg08/06/2000HPV/Klnbyc0810/03/2000Mammogram 2010COVID-19 Vaccine ( season)501/, 12/24/2020, 11/26/2020Influenza Vaccine (#1)2025Pneumococcal Vaccine: Pediatrics (0 to 5 Years) and At-Risk Patients (6 to 64 Years)Aged OutNo longer eligible based on patient's age to complete this topic Procedures Procedure NamePriorityDate/TimeAssociated DiagnosisCommentsGLUCOSE POCT BDQAYYWERYCFzkgcly91/02/2025 6:50 AM EST BASIC METABOLIC NGLVUEgzjdar58/18/2025 4:21 PM EST COAGULATION UWNWKKVEwqbyyr14/18/2025 4:21 PM EST CBC WITH AUTO ZZYRERFSNAUVIjrahly73/18/2025 4:21 PM EST ECG 12-LEAD10/15/2025 4:03 PM EST US PELVIS JDINABYTSSYHAcqfijc24/13/2025 3:44 PM EDT Enlarged uterus Uterine prolapse IGP, RFX APTIMA HPV STVIXzwxazr53/16/2025 12:00 AM EDT Screening for malignant neoplasm of cervix from Last 3 Months Results * GLUCOSE POCT GLUCOMETERS (10/29/2025 6:50 AM EST)ComponentValueRef RangeTest MethodAnalysis TimePerformed AtPathologist SignatureGLUCOSE POC DTYIAJHMYYQ371 mg/dL10/29/2025 6:56 AM ESTFIRELANDSComment: Random Glucose Reference Range is dependent on time and content of last meal. Glucose of more than 200 mg/dL in a nonstressed, ambulatory subject supports the diagnosis of Diabetes Mellitus. Specimen (Source)Anatomical Location / LateralityCollection Method / Volume Collection TimeReceived TimeBlood (Blood)10/29/2025 6:50 AM EST10/29/2025 6:56 AM EST Narrative Authorizing ProviderResult TypeResult StatusKatmary AGEE BLOOD ORDERABLESFinal ResultPerforming OrganizationAddressCity/State/ZIP CodePhone Number [facility] [place] [address], * COAGULATION PROFILE (10/15/2025 4:21 PM EST)ComponentValueRef RangeTest Method Analysis TimePerformed AtPathologist SignaturePROTHROMBIN TIME11.79.0 - 12.9 s 10/15/2025 5:06 PM [facility] CtrComment: A hematocrit value greater than 55% may lead to inaccurate results in coagulation testing. Patients having hematocrit values >55% require a special collection tube for coagulation studies. Please contact the laboratory at [phone] for redraw instructions. INR1.011 5:06 PM [facility] CtrComment: INR Therapeutic Range A) Pre- and Peroperative OAT started two weeks before surgery. ? NOT HIP SURGERY: ?? 1.5 - 2.5 ? HIP SURGERY: ?2 ??- ??3 B) Primary and secondary prevention of venous ? THROMBOSIS: ? 2 ??- ??3 C) Active venous thrombosis, pulmonary embolism and prevention of recurrent venous thrombosis: ?? 2 ??- ??3 D) Prevention of arterial thromboembolism including patients with mechanical heart valves: 3 ??- 4.5 PARTIAL THROMBOPLASTIN TIME25.525.1 - 36.5 10/15/2025 5:06 PM [facility] CtrComment: A hematocrit value greater than 55% may lead to inaccurate results in coagulation testing. Patients having hematocrit values >55% require a special collection tube for coagulation studies. Please contact the laboratory at [phone] for redraw instructions. Specimen (Source)Anatomical Location / LateralityCollection Method / Volume Collection TimeReceived TimeOtherTopography unknown / Rkoymzq9710/15/2025 4:21 PM EST10/15/2025 4:28 PM EST Narrative Authorizing ProviderResult TypeResult StatusKathleen E Rinkes DOLAB BLOOD ORDERABLESFinal ResultPerforming OrganizationAddressCity/State/ZIP CodePhone Number [facility] [address] [place] [address], [facility] [address] [place] [address] * CBC auto differential (10/15/2025 4:21 PM EST)ComponentValueRef RangeTest MethodAnalysis TimePerformed AtPathologist SignatureWBC8.83.8 - 11.6 [CFU]/mL 10/15/2025 4:37 PM [facility] CtrUNCORRECTED WHITE BLOOD COUNT8.83.8 - 11.6 10*3/uL10/15/2025 4:37 PM [facility] RBC4.333.60 - 5.00 10*6/uL10/15/2025 4:37 PM [facility] FPKKAJJOBJ85.311.8 - 15.4 g/dL10/15/2025 4:37 PM [facility] QsnVMIUDSPKMI49.134.0 - 46.4 %10/15/2025 4:37 PM [facility] SptRWP63.980 - 100 fL10/15/2025 4:37 PM [facility] GhzQLQ89.724.7 - 34.3 pg10/15/2025 4:37 PM [facility] MCHC35.032.0 - 35.0 g/dL10/15/2025 4:37 PM [facility] RED CELL DISTRIBUTION WIDTH, RDW12.611.9 - 15.3 %10/15/2025 4:37 PM [facility] CtrPLATELET BIBTD522640 - 450 10*3/uL10/15/2025 4:37 PM [facility] CtrMEAN PLATELET VOLUME, MPV7.56.3 - 10.7 fL10/15/2025 4:37 PM [facility] CtrNEUTROPHILS, %58.5. %10/15/2025 4:37 PM [facility] CtrLYMPHOCYTES, %34.6. % 10/15/2025 4:37 PM [facility] CtrMONOCYTE/MACROPHAGE, %5.0. %10/15/2025 4:37 PM [facility] CtrEOSINOPHILS, %1.3. % 10/15/2025 4:37 PM [facility] CtrBASOPHILS, %0.6. % 10/15/2025 4:37 PM [facility] CtrNRBC0.10 - 0.5 /100{WBC} 10/15/2025 4:37 PM [facility] CtrNEUTROPHILS5.21.8 - 7.7 10*3/uL10/15/2025 4:37 PM [facility] CtrLYMPHOCYTES3.11.00 - 4.8 10*3/uL10/15/2025 4:37 PM [facility] CtrMONOCYTES0.4 0.0 - 0.8 10*3/uL10/15/2025 4:37 PM [facility] EOSINOPHILS0.10.0 - 0.45 10*3/uL10/15/2025 4:37 PM [facility] CtrBASOPHILS0.10.0 - 0.2 10*3/uL10/15/2025 4:37 PM [facility] CtrSpecimen (Source)Anatomical Location / Laterality Collection Method / VolumeCollection TimeReceived TimeBlood (Blood)10/15/2025 4:21 PM EST10/15/2025 4:28 PM EST Narrative Authorizing ProviderResult TypeResult StatusKathleen E Rinkes DOLAB BLOOD ORDERABLESFinal ResultPerforming OrganizationAddressCity/State/ZIP CodePhone Number [address] [address], [facility] [address] [place] [address] * (ABNORMAL) Basic metabolic panel (10/15/2025 4:21 PM EST)ComponentValueRef RangeTest MethodAnalysis TimePerformed AtPathologist WoyhfmuvvFelikfr995(H)70 - 100 mg/dL10/15/2025 5:12 PM [facility] CtrComment: Random Glucose Reference Range is dependent on time and content of last meal. Glucose of more than 200 mg/dL in a nonstressed, ambulatory subject supports the diagnosis of Diabetes Mellitus. ADA recommended reference range NUE088 - 25 mg/dL10/15/2025 5:12 PM [facility] CtrCREATININE 0.710.60 - 1.20 mg/dL10/15/2025 5:12 PM [facility] ESTIMATED GFR>60. 5:12 PM [facility] MekQkfuod814 136 - 145 mmol/L112/15/2024 5:12 PM [facility] CtrPotassium, Bld4.43.5 - 5.1 mmol/L112/15/2024 5:12 PM [facility] Jfssyhio62114 - 107 mmol/L112/15/2024 5:12 PM [facility] Carbon Jtstoya98.621.0 - 31.0 mmol/L112/15/2024 5:12 PM [facility] CtrAnion Gap10.86.0 - 15. 5:12 PM [facility] CtrCalcium8.88.6 - 10.3 mg/dL10/15/2025 5:12 PM [facility] CtrSpecimen (Source)Anatomical Location / LateralityCollection Method / VolumeCollection TimeReceived TimeOtherTopography unknown / Trsocid2910/15/2025 4:21 PM EST10/15/2025 4:28 PM EST Narrative Authorizing ProviderResult TypeResult StatusKathleen E Rinkes DOLAB BLOOD ORDERABLESFinal ResultPerforming OrganizationAddressCity/State/ZIP CodePhone Number [facility] [address] [place] [address], [facility] [address] [place] [address] * ECG 12 lead (10/15/2025 4:03 PM EST)Specimen (Source)Anatomical Location / LateralityCollection Method / VolumeCollection TimeReceived Time10/15/2025 4:03 PM EST Narrative [facility] - 10/16/2025 9:18 AM EST [facility] ?[address] [place] ?[address] ? [place] [address] ? Electrocardiograph Report ? Signed ? Patient: Love,Maria Guadalupe A ?MR#: [id number] ? : 1970 ?Acct:[id number] ? Age/Sex: 55 / F ?ADM Date: 10/15/25 ? Loc: PS ?Room: ?Type: DEP CLI ?? Attending Dr: Li Warrne DO ? Ordering Provider: Li Warren, DO ?? Date of Service: 10/15/25 ?? ECG/ECG 12 lead ECG: PST ? Copies to: ? Test Reason : ?? Blood Pressure : ?? */* ?? mmHG ?? Vent. Rate : ??86 BPM ? Atrial Rate : ??86 BPM ? P-R Int : 174 ms ?QRS Dur : ??84 ms ?QT Int : 374 ms ? P-R-T Axes : ??45 ??38 ??37 degrees ?QTcB Int : 447 ms ? Normal sinus rhythm ?? Normal ECG ?? Confirmed by Karly Sin ([id number]) on 10/16/2025 9:18:28 AM ? Referred By: ?Electronically Signed By: Karly Sin ? Transcribed By: ? MUS ? Signed By ? Karly Sin MD ? 5 0918 Procedure Note Karly Sin MD - 10/16/2025 [facility] [address] [place] [address] [place] [address] Electrocardiograph Report Signed Patient: Maria Guadalupe Neri AMR#: [id number] : 1970Acct:[id number] Age/Sex: 55 / FADM Date: 10/15/25 Loc: Room:Type: [facility] Attending Dr: Li Warren DO Ordering Provider: Li Warren DO Date of Service: 10/15/25 ECG/ECG 12 lead ECG: PST Copies to: Test Reason : Blood Pressure : */* mmHG Vent. Rate : 86 BPM Atrial Rate : 86 BPM P-R Int : 174 ms QRS Dur : 84 ms QT Int : 374 ms P-R-T Axes : 45 38 37 degrees QTcB Int : 447 ms Normal sinus rhythm Normal ECG Confirmed by Karly Sin ([id number]) on 10/16/2025 9:18:28 AM Referred By: Electronically Signed By: Karly Sin Transcribed By: MUS Signed By Karly Sin MD [id number] Authorizing ProviderResult TypeResult StatusKatmary Warren DOECG ORDERABLES Final ResultPerforming OrganizationAddressCity/State/ZIP CodePhone Number [address] [address], [place] * US pelvis transvaginal (09/09/2025 3:44 PM EDT)Anatomical RegionLaterality ModalityPelvisUltrasoundStudy GAStudy DateStudy EDDWorking LYLY (Source) 09/09/2025Specimen (Source)Anatomical Location / LateralityCollection Method / VolumeCollection TimeReceived Time Narrative 09/12/2025 12:46 PM EDT Images from the original result were not included. ?? Obstetrics & Gynecology ? [address] ? [address] ? [address] ?[address], [facility] ? [place] [address] [place] [address] ? - - - - - - - - - - - - - - - - - - - - - - - - - - - - - - - - - - - - - - - - - - - - - - - - - - - - - - - - - - - - - - - - - - Pelvic Ultrasound Patient name: Maria Guadalupe Neri : 1970 (54 y.o.) Date of exam: 09/09/25 - - - - - - - - - - - - - - - - - - - - - - - - - - - - - - - Indication: enlarged uterus, uterine prolapse Surgical History: no previous gynecological surgeries Method: Transvaginal ultrasound examination View: Adequate - - - - - - - - - - - - - - - - - - - - - - - - - - - - - - - Measurements: Uterus: 9.2 x 6.3 x 5.0 cm ??Volume: 150.6 cm?? Endometrial thickness: 6.3 mm Right ovary: 2.4 x 1.5 x 1.8 cm ??Volume: 3.3 cm?? Left ovary: 2.0 x 1.4 x 1.1 cm Volume: 1.5 cm?? - - - - - - - - - - - - - - - - - - - - - - - - - - - - - - - Findings: Uterus: The uterus is enlarged in size and normal in contour. Position: Anterverted Malformations: none Myometrium: The myometrium has a mottled, heterogeneous echotexture. Fibroid(s): There are multiple fibroids visualized. 1: intramural, submucosal, right (1.8 x 1.8 x 1.5 cm) 2: intramural, left (1.3 x 1.1 x 1.1 cm) Endometrium: There is a hyperechoic area visualized, measuring 1.2 x 0.5 x 1.2 mm. No blood flow visualized. Scant fluid enhancement. Cervix: The cervix appears unremarkable. - - - - - - - - - - - - - - - - - - - - - - - - - - - - - - - Right ovary: Suboptimally visualized Morphology: normal appearing Cyst(s): no cysts visualized Doppler: power doppler shows ovarian blood profusion Right adnexa: no overt adnexal mass - - - - - - - - - - - - - - - - - - - - - - - - - - - - - - - Left ovary: Visualized Morphology: normal appearing Cyst(s): no cysts visualized Doppler: power doppler shows ovarian blood profusion Left adnexa: no overt adnexal mass - - - - - - - - - - - - - - - - - - - - - - - - - - - - - - - Cul de Sac: no free fluid - - - - - - - - - - - - - - - - - - - - - - - - - - - - - - - - - - - - - - - - - - - - - - - - - - - - - - - - - - - - - - - - - - Impression: The uterus is enlarged in size and normal in contour. The myometrium is heterogenous in echotexture with suspected fibroids. The largest fibroid is submucosal/intramural and measures 1.8 x 1.8 x 1.5 cm. The endometrium measures 6.3 mm in thickness and contains a 1.2 x 0.5 x 1.2 mm hyperechoic area. There is scant fluid enhancement around this structure and no obvious blood flow. Both ovaries are visible and appear normal in size and echotexture. There is no overt adnexal mass. There is no free fluid visible within the pelvis. - - - - - - - - - - - - - - - - - - - - - - - - - - - - - - - - - - - - - - - - - - - - - - - - - - - - - - - - - - - - - - - - - - Ordering/Reading Provider: Li Warren D.O. ??Sustainable Development Policy Analyst: Shila Winter RDMS Authorizing ProviderResult TypeResult StatusLi Warren [facility] US PROCEDURESFinal Result * IGP, RFX APTIMA HPV ASCU (08/13/2025 12:00 AM EDT)ComponentValueRef RangeTest MethodAnalysis TimePerformed AtPathologist SignatureDiagnosis:CommentLABC[facility]P Comment:NEGATIVE FOR INTRAEPITHELIAL LESION OR MALIGNANCY.Specimen Adequacy: CommentLABCORPComment: Satisfactory for evaluation. ??Endocervical and/or squamous metaplastic cells (endocervical component) are present. Clinician Provided ICD10:CommentLABCORPComment:Z12.4Performed By:CommentLABC[facility]P Comment:Kwame Luke, Block And Case Maker ([facility])Cyto Comments.LABCORPNote:Comment[facility] Comment: The Pap smear is a screening test designed to aid in the detection of premalignant and malignant conditions of the uterine cervix. ??It is not a diagnostic procedure and should not be used as the sole means of detecting cervical cancer. ??Both false-positive and false-negative reports do occur. Test Methodology:CommentLABCORPComment: This liquid based ThinPrep(R) pap test was screened with the use of an image guided system. .CommentLABCORPComment: The HPV DNA reflex criteria were not met with this specimen result therefore, no HPV testing was performed. Specimen (Source)Anatomical Location / LateralityCollection Method / Volume Collection TimeReceived Time/ Narrative [facility] - 08/18/2025 6:37 AM EDT Performed at: - Lab30 Gal[address]Keyon sanders [address] ??[id number] On Site Wastewater Systems Technician: Radha Archuleta MD, Phone: ??[phone] Specimen Comment: [id number] Specimen Comment: No. of containers..01 ThinPrep Vial Authorizing ProviderResult TypeResult StatusLi Warren DOLAB BLOOD ORDERABLESFinal ResultPerforming OrganizationAddressCity/State/ZIP CodePhone Number [facility] from Last 3 Months Insurance Care Teams Team MemberRelationshipSpecialtyStart DateEnd Date Unallocated, Noms Joana, [address] [place], [place] [id number] PCP - GeneralFamily Cuaqupjx50/14/25
--- OUTSIDE RECORDS SUMMARY | 2025-11-09 19:49 | XMS_ITS | Patient Health Record ---
Author Organization [facility] in [place] Address [address] [place] [address] Care Team Providers Care Correctional Agency Director Name Role Phone Cheng Castro Do Primary Care Provider Unavaila ble Reason For Referral No Information Medications Medication SIG (Take, Route, Frequency, Duration) Notes Start Date End Date Status Benadryl 25 MG as directed Orally O NE CAPSULE 1/2 HR PRE MRI IF NEEDED; Duration: 1 days 09/28/2016ActivebusPIRone HClActiveDivalproex Sodium ERActiveLevothyroxine SodiumActiveTopiramateActive Social History Tobacco Use: Social History Observation Description Date Details (start date - stop date) Never Smoker NA - NA Tobacco Use/Smoking Question Answer Notes Patient is a nonsmoker Problems Problem Type SNOMED Code ICD Code Onset Dates Problem Status W/U Status Risk Notes Problem Nuclear senile cataract (8740683 09) Nuclear age-related cataract, both eyes (H25.13) ActiveconfirmedIMMATURE. Plan Of Treatment No Information Insurance Providers Payer Name Payer Address Payer Phone Subscriber Number Group Number Insured Name Patient Relationship to Insured Coverage Start Date Coverage End Date [employer] [address] [place] [address] [id number] OXANA ARCHIBALD Self - patient is the insured
--- OUTSIDE RECORDS SUMMARY | 2025-11-09 19:49 | XMS_ITS | Encounter Summary ---
Author Organization [facility] Address [address] [facility] [place] [address] Care Team Providers Care Patch Finisher Name Role Phone Unallocated, Noms Provider Primary Care Provi yessy Encounter Details DateTypeDepartmentCare Team (Latest Contact Info)Jvblkckshrt60/02/2025External Result Encounter [facility] External Department Unsolicited Li Warren, DO [address] [place] [address] Social History Tobacco UseTypesPacks/DayYears UsedDateSmoking Tobacco: Never Assessed CommentsUnknownSex and Gender InformationValueDate RecordedSex Assigned at Not on fileLegal DbmRpzhly70/01/2023 8:33 PM EDTGender IdentityNot on fileSexual OrientationNot on filedocumented as of this encounter Plan of Treatment DateTypeDepartmentCare Team (Latest Contact Info)Mpkdlkdwgyp79/17/2025 11:00 AM ESTOffice Visit [facility] [place] [facility] [address] [place] [address] Li Warrne, DO [address] [place] [address] Postoperative examinationdocumented as of this encounter Procedures Procedure NamePriorityDate/TimeAssociated DiagnosisCommentsGLUCOSE POCT YTORQHGUIVULjeoyfa03/02/2025 6:50 AM EST documented in this encounter Results * GLUCOSE POCT GLUCOMETERS (10/29/2025 6:50 AM EST)ComponentValueRef RangeTest MethodAnalysis TimePerformed AtPathologist SignatureGLUCOSE POC YDFRYEQJZBT019 mg/dL10/29/2025 6:56 AM ESTFIRELANDSComment: Random Glucose Reference Range is dependent on time and content of last meal. Glucose of more than 200 mg/dL in a nonstressed, ambulatory subject supports the diagnosis of Diabetes Mellitus. Specimen (Source)Anatomical Location / LateralityCollection Method / Volume Collection TimeReceived TimeBlood (Blood)10/29/2025 6:50 AM EST10/29/2025 6:56 AM EST Narrative Authorizing ProviderResult TypeResult StatusKathlpolly E Rineliana DOLAB BLOOD ORDERABLESFinal ResultPerforming OrganizationAddressCity/State/ZIP CodePhone Number [facility] [address] [place] [address], documented in this encounter Visit Diagnoses Not on filedocumented in this encounter Care Teams Team MemberRelationshipSpecialtyStart DateEnd Date Unallocated, Noms Provider, [address] [place] [address] PCP - GeneralFamily Gsrfryhq59/14/25documented as of this encounter
[2025-11-09] MEDS: 0.9 % SODIUM CHLORIDE 1,000 ML 1000 ML IV (19:59)
[2025-11-09] MEDS: KETOROLAC TROMETHAMINE 30 MG/ML VIAL 15 MG IVP (19:59)
[2025-11-09] MEDS: MORPHINE SULFATE 2 MG/ML SYRINGE IV (20:00)
[2025-11-09 20:09] LABS: Hematocrit 39.3 % (36.0-48.0); Hemoglobin 13.5 g/dL (12.0-16.0); Immature Granulocytes Abs Auto 0.05 10^3/uL (0.00-0.03); Immature Granulocytes Pct Auto 0.4 % (0.0-0.5); Lymphocytes Absolute Auto 2.6 10^3/uL (1.2-3.8); Mean Corpuscular HGB Conc 34.4 g/dL (29.9-35.2); Mean Corpuscular Hemoglobin 30.5 pg (26.7-34.0); Mean Corpuscular Volume 88.9 fL (81.0-99.0); Platelet Count 344 10^3/uL (150-450); Red Blood Count 4.42 10^6/uL (4.20-5.40); White Blood Count 11.1 10^3/uL (4.0-11.0)
[2025-11-09 20:24] LABS: Alanine Aminotransferase 26 U/L (14-59); Albumin Globulin Ratio 0.8; Albumin Level 3.4 g/dL (3.4-5.0); Alkaline Phosphatase 129 U/L (46-116); Aspartate Amino Transferase 16 U/L (15-37); Blood Urea Nitrogen 12.0 mg/dL (7.0-18.0); Calcium 9.3 mg/dL (8.5-10.1); Carbon Dioxide 29.0 mmol/L (21.0-32.0); Estimated GFR (African America >60 (>=60 mL/min/1.73m^2); Estimated GFR (Non-African Ame >60 (>=60 mL/min/1.73m^2); Globulin 4.1 g/dL; Glucose 134 mg/dL (74-106); Total Protein 7.5 g/dL (6.4-8.2)
[2025-11-09 20:30] LABS: Anion Gap 12.1; Chloride 102 mmol/L (98-107); Potassium 4.1 mmol/L (3.5-5.1); Sodium 139 mmol/L (136-145)
[2025-11-09 21:22] LABS: Glucose Urine UA NEGATIVE (NEGATIVE)
[2025-11-09 21:28] LABS: Cast Seen? NONE SEEN #/LPF (NONE SEEN); Crystals Seen? None Seen #/HPF (None Seen); Urine Culture Indicated YES-FRMC
[2025-11-09 21:39] VITALS: BP 162/88; O2SAT 98
== END 2025-11-09 21:41 | disposition home or self-care (01) ==
PROVIDERS: Emergency Provider Student in an Organized Health Care Education/Training Program; PCP Family Medicine
DX: N13.2 Hydronephrosis with renal and ureteral calculous obstruction (principal); Z87.442 Personal history of urinary calculi; Z90.710 Acquired absence of both cervix and uterus
CPT/HCPCS: 36415; 74176; 80053; 81001; 85025; 87086; 96374; 96375; 99284; J1885; J2270; J2405